=== PATIENT | male | born 1965 | race Two or more races ===

== ENCOUNTER 2024-05-08 12:42 | Inpatient (IN) | payer BC ==
[~2024-05-08] VITALS: Ht 14.7 cm; Wt 92.1 kg
[2024-05-08] MEDS ORDERED: GLIP5TAB23 PO (13:04)
[2024-05-08] MEDS ORDERED: potassium Cl 20 mEq SR tablet PO PRN ×2 (13:40)
[2024-05-08] MEDS: PERFLUTREN PROTEIN-A MICROSPHR (Optison) 0.22 MG/ML 3ML VIAL IV ONE (13:40)
[2024-05-08] MEDS ORDERED: potassium Cl 40MEQ/1/2NS 520ml 520 ML IV PRN (13:40)
[2024-05-08] MEDS ORDERED: glucagon, human recombinant 1mg kit SUBCUT PRN (13:40)
[2024-05-08] MEDS ORDERED: dextrose 50%-water 50ml dispensing syringe IV PRN ×2 (13:40)
[2024-05-08] MEDS ORDERED: magnesium sulf-water 2g/50mL 50 ML IV PRN (13:40)
[2024-05-08] MEDS ORDERED: DEXTROSE 15 GM of carb/4 tabs (each vial/BOTTLE has 4 tablets) PO PRN ×2 (13:40)
[2024-05-08] MEDS ORDERED: magnesium sulf-water 4G/100mL 100 ML IV PRN (13:40)
[2024-05-08] MEDS ORDERED: mag hydrox/Alum hydrox/simeth 30ml oral suspension PO PRN (13:40)
[2024-05-08] MEDS ORDERED: magnesium hydroxide 30ml (MOM) UD suspension PO PRN (13:40)
[2024-05-08] MEDS ORDERED: HYDROcodone/acetaminophen 5mg/325mg tablet PO PRN (13:40)
[2024-05-08] MEDS ORDERED: HYDROcodone/acetaminophen 10/325mg tab PO PRN (13:40)
[2024-05-08] MEDS ORDERED: ondansetron/PF 4mg/2ml inj IV PRN (13:40)
[2024-05-08] MEDS ORDERED: acetaminophen 325mg tablet PO PRN ×2 (13:40)
[2024-05-08] MEDS ORDERED: morphine 2 MG/ML inj. syringe IV PRN ×2 (13:40)
[2024-05-08 14:03] LABS: BASOPHILS % (AUTO) 0.5 % (0-1); EOSINOPHILS # (AUTO) 0.4 X10'3 (0-0.9); EOSINOPHILS % (AUTO) 4.3 % (0-6); HEMATOCRIT 43.5 % (42.0-52.0); HEMOGLOBIN 14.7 g/dl (14.0-17.9); LYMPHOCYTES # (AUTO) 2.8 X10'3 (1.1-4.8); LYMPHOCYTES % (AUTO) 28.2 % (21-51); MEAN CORPUSCULAR HEMOGLOBIN 30.6 PG (27.0-31.0); MEAN CORPUSCULAR HGB CONC 33.8 g/dL (33.0-36.5); MEAN CORPUSCULAR VOLUME 90.5 FL (78-98); MEAN PLATELET VOLUME 8.9 FL (7.4-10.4); MONOCYTES # (AUTO) 0.7 X10'3 (0-0.9); MONOCYTES % (AUTO) 6.7 % (2-12); NEUTROPHILS # (AUTO) 6.1 X10'3 (1.8-7.7); NEUTROPHILS % (AUTO) 60.3 % (42-75); PLATELET COUNT 240 X10'3 (140-440); RED CELL DISTRIBUTION WIDTH 15.7 % (11.5-14.5); WHITE BLOOD COUNT 10.1 X10'3 (4.5-11.0)
[2024-05-08] MEDS: heparin 25,000 UNIT/250ml bag 250 ML IV PRN (14:12)
[2024-05-08] MEDS: heparin 10,000 units/1 ML INJ IV ONE (14:13)
[2024-05-08] MEDS: HEPARIN DRIP-CARDIAC**PHARMACIST-TO-DOSE IV ONE (14:15)
[2024-05-08 14:24] LABS: PROTHROMBIN TIME 10.5 SECONDS (9.0-12.0)
[2024-05-08] MEDS ORDERED: metoprolol tartrate 1mg/ml inj IV PRN (14:25)
[2024-05-08] MEDS ORDERED: regadenoson 0.4mg/5ml syringe IV PRN (14:25)
[2024-05-08] MEDS ORDERED: nitroGLYCERIN 0.4mg SUBLingual tab SL PRN (14:25)
[2024-05-08] MEDS ORDERED: aminophylline 250mg/10ml inj. IV PRN (14:25)
[2024-05-08] MEDS: MESSAGE TO NURSING IV ONE ×2 (15:06→20:59)
[2024-05-08] MEDS: metoprolol tartrate 50mg tablet PO ONE (15:15)
[2024-05-08] MEDS: atorvastatin 20mg tablet PO SCH (15:16)
[2024-05-08] MEDS ORDERED: NITR0.4T51 SL (18:09)
[2024-05-08] MEDS: docusate sod 100mg capsule PO SCH (19:32)
[2024-05-08] MEDS: K and/or MAG REPLACEMENT MC SCH (19:32)
[2024-05-08] MEDS: INSULIN LISPRO 100 UNIT/ML INSULN.PEN MULTI-DOSE SQ SCH (19:38)
[2024-05-08] MEDS: heparin 10,000 units/1 ML INJ IV PRN (20:54)
[2024-05-08 21:49] VITALS: BP 142/78; PULSE 69; RESP 12; TEMP 98.1; O2SAT 98
[2024-05-08] MEDS ORDERED: PRED5TAB PO (22:55)
[2024-05-08 23:29] VITALS: BP 141/79; PULSE 69; RESP 15; TEMP 98.1; O2SAT 97
[2024-05-08 23:36] VITALS: RESP 13; O2SAT 98
[2024-05-09] VITALS (8 sets, daily range): BP systolic 127–141; BP diastolic 61–81; PULSE 68–89; RESP 12–16; TEMP 97.1–98.4; O2SAT 96–98
[2024-05-09] MEDS: nicotine 21mg patch - 24 hr TD ONE
[2024-05-09 02:56] LABS: BASOPHILS % (AUTO) 0.5 % (0-1); EOSINOPHILS # (AUTO) 0.4 X10'3 (0-0.9); EOSINOPHILS % (AUTO) 4.2 % (0-6); HEMATOCRIT 40.7 % (42.0-52.0); LYMPHOCYTES # (AUTO) 3.5 X10'3 (1.1-4.8); LYMPHOCYTES % (AUTO) 41.7 % (21-51); MEAN CORPUSCULAR HEMOGLOBIN 31.1 PG (27.0-31.0); MEAN CORPUSCULAR HGB CONC 34.5 g/dL (33.0-36.5); MEAN CORPUSCULAR VOLUME 90.3 FL (78-98); MEAN PLATELET VOLUME 8.6 FL (7.4-10.4); MONOCYTES # (AUTO) 0.5 X10'3 (0-0.9); MONOCYTES % (AUTO) 6.5 % (2-12); NEUTROPHILS % (AUTO) 47.1 % (42-75); PLATELET COUNT 215 X10'3 (140-440); RED CELL DISTRIBUTION WIDTH 15.5 % (11.5-14.5); WHITE BLOOD COUNT 8.4 X10'3 (4.5-11.0)
[2024-05-09 03:17] LABS: ALANINE AMINOTRANSFERASE 14 U/L (12-78); ALBUMIN/GLOBULIN RATIO 0.8 (1.1-1.5); ALKALINE PHOSPHATASE 70 IU/L (46-116); ANION GAP 4 (8-16); ASPARTATE AMINO TRANSFERASE 9 U/L (10-37); BILIRUBIN,TOTAL 0.4 MG/DL (0.1-1.0); BLOOD UREA NITROGEN 18 MG/DL (7-18); BUN/CREATININE RATIO 19.4 (10.0-20.0); CALCIUM 8.5 MG/DL (8.5-10.1); CHLORIDE 104 MMOL/L (99-107); CHOL/HDL RATIO 3.8 (0.00-4.99); CHOLESTEROL 117 MG/DL (0-200); CREATININE 0.93 MG/DL (0.60-1.10); GLUCOSE 178 MG/DL (70-104); HDL CHOLESTEROL 31 MG/DL (35-60); LDL CHOLESTEROL 76 MG/DL (50-100); MAGNESIUM 1.8 MG/DL (1.5-2.4); POTASSIUM 4.2 MMOL/L (3.5-5.1); SODIUM 139 MMOL/L (135-145); TOTAL CARBON DIOXIDE 31.3 MMOL/L (24-32); TRIGLYCERIDES 84 MG/DL (20-135); eGFR 84 ML/MIN
[2024-05-09] MEDS: MESSAGE TO NURSING IV ONE ×4 (03:39→21:55)
[2024-05-09] MEDS: nicotine 21mg patch - 24 hr TD SCH (08:00)
[2024-05-10] VITALS (11 sets, daily range): BP systolic 110–146; BP diastolic 59–96; PULSE 65–82; RESP 14–16; TEMP 97.8–98; O2SAT 96–100
[2024-05-10] MEDS: nicotine 21mg patch - 24 hr TD SCH (01:37)
[2024-05-10 03:30] LABS: BASOPHILS # (AUTO) 0.1 X10'3 (0-0.2); BASOPHILS % (AUTO) 0.8 % (0-1); EOSINOPHILS # (AUTO) 0.4 X10'3 (0-0.9); EOSINOPHILS % (AUTO) 4.3 % (0-6); HEMATOCRIT 42.1 % (42.0-52.0); HEMOGLOBIN 14.1 g/dl (14.0-17.9); LYMPHOCYTES # (AUTO) 3.4 X10'3 (1.1-4.8); MEAN CORPUSCULAR HEMOGLOBIN 30.3 PG (27.0-31.0); MEAN CORPUSCULAR HGB CONC 33.5 g/dL (33.0-36.5); MEAN CORPUSCULAR VOLUME 90.6 FL (78-98); MEAN PLATELET VOLUME 8.6 FL (7.4-10.4); MONOCYTES # (AUTO) 0.6 X10'3 (0-0.9); MONOCYTES % (AUTO) 7.1 % (2-12); NEUTROPHILS # (AUTO) 4.3 X10'3 (1.8-7.7); NEUTROPHILS % (AUTO) 48.8 % (42-75); PLATELET COUNT 206 X10'3 (140-440); RED BLOOD COUNT 4.64 X10'6 (4.70-6.10); RED CELL DISTRIBUTION WIDTH 15.4 % (11.5-14.5); WHITE BLOOD COUNT 8.7 X10'3 (4.5-11.0)
[2024-05-10 03:41] LABS: ALANINE AMINOTRANSFERASE 11 U/L (12-78); ALBUMIN 3.1 G/DL (3.4-5.0); ALBUMIN/GLOBULIN RATIO 0.8 (1.1-1.5); ALKALINE PHOSPHATASE 76 IU/L (46-116); ANION GAP 4 (8-16); ASPARTATE AMINO TRANSFERASE 8 U/L (10-37); BILIRUBIN,TOTAL 0.3 MG/DL (0.1-1.0); BLOOD UREA NITROGEN 20 MG/DL (7-18); BUN/CREATININE RATIO 17.7 (10.0-20.0); CALCIUM 8.8 MG/DL (8.5-10.1); CHLORIDE 104 MMOL/L (99-107); CREATININE 1.13 MG/DL (0.60-1.10); GLUCOSE 187 MG/DL (70-104); MAGNESIUM 1.9 MG/DL (1.5-2.4); POTASSIUM 3.9 MMOL/L (3.5-5.1); SODIUM 139 MMOL/L (135-145); TOTAL CARBON DIOXIDE 31.3 MMOL/L (24-32); eGFR 67 ML/MIN
[2024-05-10] MEDS: MESSAGE TO NURSING IV ONE ×2 (04:00→10:57)
[2024-05-10] MEDS: regadenoson 0.4mg/5ml syringe IV ONE (09:36)
[2024-05-10] MEDS ORDERED: ASPI-1265 PO (14:15)
[2024-05-10] MEDS ORDERED: NICO-687 TD (14:15)
[2024-05-10] MEDS ORDERED: ATOR20TA66 PO (14:15)
== END 2024-05-10 15:15 | disposition home or self-care (01) | DRG 282 ==
LOC: ER 12:43 → ED HOLD 13:49 → PCU 3S 21:30
PROVIDERS: ADMIT Family Medicine; ATTEND Family Medicine
PROC: 4A02XM4 Measurement of Cardiac Total Activity, External Approach (ICD-10-PCS; principal; 2024-05-10)
PROC: 3E033HZ Introduction of Radioactive Substance into Peripheral Vein, Percutaneous Approach (ICD-10-PCS; 2024-05-10)
DX: R07.89 Other chest pain (principal); I21.A1 Myocardial infarction type 2; M06.9 Rheumatoid arthritis, unspecified; F17.210 Nicotine dependence, cigarettes, uncomplicated; I35.1 Nonrheumatic aortic (valve) insufficiency; E11.9 Type 2 diabetes mellitus without complications; Z86.73 Personal history of transient ischemic attack (TIA), and cerebral infarction without residual deficits; Z82.49 Family history of ischemic heart disease and other diseases of the circulatory system
CPT/HCPCS: 36415; 78452; 80053; 80061; 82948; 83036; 83735; 84484; 85025; 85610; 85730; 87081; 93005; 93017; 93306; 97116; 97161; 97530; 99285; A9500; G0378; J1644; J1815; J2785

== ENCOUNTER 2024-05-29 10:15 | Inpatient (IN) | payer BC ==
[~2024-05-29] VITALS: Ht 167.6 cm; Wt 93.4 kg
[2024-05-29] VITALS (15 sets, daily range): BP systolic 101–144; BP diastolic 65–86; PULSE 69–81; RESP 8–16; TEMP 97–97.7; O2SAT 96–99
[~2024-05-29 10:15] MED LIST: ASPI-1265 PO; ATOR20TA66 PO; GLIP5TAB23 PO; NICO-687 TD; NITR0.4T51 SL; PRED5TAB PO
[2024-05-29] MEDS: aspirin 81mg tab.chew PO ONE (10:32)
[2024-05-29 10:46] LABS: BASOPHILS % (AUTO) 0.3 % (0-1); EOSINOPHILS # (AUTO) 0.4 X10'3 (0-0.9); EOSINOPHILS % (AUTO) 3.6 % (0-6); HEMATOCRIT 43.8 % (42.0-52.0); HEMOGLOBIN 14.7 g/dl (14.0-17.9); LYMPHOCYTES # (AUTO) 3.3 X10'3 (1.1-4.8); LYMPHOCYTES % (AUTO) 29.1 % (21-51); MEAN CORPUSCULAR HEMOGLOBIN 30.7 PG (27.0-31.0); MEAN CORPUSCULAR HGB CONC 33.5 g/dL (33.0-36.5); MEAN CORPUSCULAR VOLUME 91.5 FL (78-98); MEAN PLATELET VOLUME 9.1 FL (7.4-10.4); MONOCYTES # (AUTO) 0.7 X10'3 (0-0.9); MONOCYTES % (AUTO) 5.7 % (2-12); NEUTROPHILS % (AUTO) 61.3 % (42-75); PLATELET COUNT 210 X10'3 (140-440); RED BLOOD COUNT 4.79 X10'6 (4.70-6.10); RED CELL DISTRIBUTION WIDTH 15.9 % (11.5-14.5); WHITE BLOOD COUNT 11.5 X10'3 (4.5-11.0)
[2024-05-29] MEDS ORDERED: nitroGLYCERIN 0.4mg SUBLingual tab SL PRN (12:15)
[2024-05-29] MEDS ORDERED: heparin 10,000 units/1 ML INJ IV PRN (12:35)
[2024-05-29] MEDS ORDERED: iohexol 350MG/ML 100ml bottle IV ONE ×2 (12:41→13:57)
[2024-05-29] MEDS ORDERED: fentaNYL/PF 50MCG/1 ML 2ML syringe ONE (12:41)
[2024-05-29] MEDS ORDERED: iohexol 350 MG/ML 50ML vial IV ONE (12:41)
[2024-05-29] MEDS ORDERED: midazolam 1 mg/ML 2ml injection ONE ×2 (12:41→13:46)
[2024-05-29] MEDS ORDERED: heparin 1,000unit/ml 10ml vial 10 ML ONE (12:41)
[2024-05-29] MEDS ORDERED: LIDOcaine 1% 30ml preserv. free vial ONE (12:42)
[2024-05-29] MEDS ORDERED: nitroGLYCERIN 500mcg/5mL D5W 5 ML IV ONE ×2 (12:42→13:38)
[2024-05-29] MEDS: heparin 25,000 UNIT/250ml bag 250 ML IV PRN (12:45)
[2024-05-29] MEDS: heparin 10,000 units/1 ML INJ IV ONE (12:47)
[2024-05-29 13:19] LABS: ALANINE AMINOTRANSFERASE 19 U/L (12-78); ALBUMIN 3.3 G/DL (3.4-5.0); ALBUMIN/GLOBULIN RATIO 0.8 (1.1-1.5); ALKALINE PHOSPHATASE 84 IU/L (46-116); ASPARTATE AMINO TRANSFERASE 7 U/L (10-37); BILIRUBIN,TOTAL 0.4 MG/DL (0.1-1.0); CALCIUM 9.3 MG/DL (8.5-10.1); TOTAL CARBON DIOXIDE 28.4 MMOL/L (24-32); TOTAL PROTEIN 7.4 G/DL (6.4-8.2)
[2024-05-29 13:27] LABS: ANION GAP 11 (8-16); BLOOD UREA NITROGEN 23 MG/DL (7-18); BUN/CREATININE RATIO 18.9 (10.0-20.0); CHLORIDE 100 MMOL/L (99-107); CREATININE 1.22 MG/DL (0.60-1.10); GLUCOSE 334 MG/DL (70-104); POTASSIUM 4.4 MMOL/L (3.5-5.1); PRO BRAIN NATRIURETIC PEPTIDE 848 PG/ML (0-125); SODIUM 139 MMOL/L (135-145); eCRCL 61 ML/MIN; eGFR 61 ML/MIN
[2024-05-29] MEDS ORDERED: heparin 1,000 UNITS/NS 500ml 500 ML ONE (13:58)
[2024-05-29] MEDS ORDERED: clopidogrel 300mg tablet ONE (14:29)
[2024-05-29] MEDS ORDERED: aspirin 325mg tablet ONE (14:29)
[2024-05-29] MEDS ORDERED: heparin 10,000 units/1 ML INJ IV ONE (15:35)
[2024-05-29] MEDS ORDERED: acetaminophen 325mg tablet PO PRN (15:40)
[2024-05-29] MEDS ORDERED: ondansetron/PF 4mg/2ml inj IV PRN (15:40)
[2024-05-29] MEDS ORDERED: mag hydrox/Alum hydrox/simeth 30ml oral suspension PO PRN (15:40)
[2024-05-29] MEDS ORDERED: magnesium sulf-water 2g/50mL 50 ML IV PRN (15:40)
[2024-05-29] MEDS ORDERED: potassium Cl 40MEQ/1/2NS 520ml 520 ML IV PRN (15:40)
[2024-05-29] MEDS ORDERED: magnesium hydroxide 30ml (MOM) UD suspension PO PRN (15:40)
[2024-05-29] MEDS ORDERED: magnesium Cl slow-release 64mg tablet PO PRN (15:40)
[2024-05-29] MEDS ORDERED: potassium Cl 20 mEq SR tablet PO PRN ×2 (15:40)
[2024-05-29] MEDS ORDERED: magnesium sulf-water 4G/100mL 100 ML IV PRN (15:40)
[2024-05-29] MEDS ORDERED: glucagon, human recombinant 1mg kit SUBCUT PRN (15:45)
[2024-05-29] MEDS ORDERED: dextrose 50%-water 50ml dispensing syringe IV PRN ×2 (15:45)
[2024-05-29] MEDS ORDERED: DEXTROSE 15 GM of carb/4 tabs (each vial/BOTTLE has 4 tablets) PO PRN ×2 (15:45)
[2024-05-29] MEDS ORDERED: HYDROcodone/acetaminophen 10/325mg tab PO PRN (16:35)
[2024-05-29] MEDS ORDERED: OXAZEpam 15mg capsule PO PRN (16:35)
[2024-05-29] MEDS ORDERED: cyclobenzaprine 10mg tablet PO PRN (16:35)
[2024-05-29] MEDS: normal saline 1000ml 1,000 ML IV ONE (18:00)
[2024-05-29 18:45] LABS: CHOL/HDL RATIO 3.4 (0.00-4.99); CHOLESTEROL 133 MG/DL (0-200); HDL CHOLESTEROL 39 MG/DL (35-60); TRIGLYCERIDES 96 MG/DL (20-135)
[2024-05-29 18:48] LABS: LDL CHOLESTEROL 85 MG/DL (50-100)
[2024-05-29] MEDS: docusate sod 100mg capsule PO SCH (20:00)
[2024-05-29] MEDS: K and/or MAG REPLACEMENT MC SCH (20:00)
[2024-05-29] MEDS: heparin, porcine 5000 units/ml vial SQ SCH (20:45)
[2024-05-29] MEDS: INSULIN LISPRO 100 UNIT/ML INSULN.PEN MULTI-DOSE SQ SCH (20:47)
[2024-05-29] MEDS: morphine 4 MG/ML inj SYRINge IV ONE (20:48)
[2024-05-29] MEDS: ondansetron/PF 4mg/2ml inj IV ONE (20:48)
[2024-05-29] MEDS: MESSAGE TO NURSING IV ONE (20:48)
[2024-05-29] MEDS: HYDROcodone/acetaminophen 10/325mg tab PO PRN (23:03)
[2024-05-29] MEDS: nicotine 14mg patch - 24hr TD ONE (23:06)
[2024-05-30 02:00] VITALS: BP 150/80; PULSE 78; RESP 11; TEMP 97.9; O2SAT 98
[2024-05-30 06:00] VITALS: BP 135/67; PULSE 70; RESP 14; TEMP 97.7; O2SAT 98
[2024-05-30 07:23] LABS: BASOPHILS # (AUTO) 0.1 X10'3 (0-0.2); BASOPHILS % (AUTO) 0.6 % (0-1); EOSINOPHILS # (AUTO) 0.3 X10'3 (0-0.9); EOSINOPHILS % (AUTO) 3.2 % (0-6); HEMOGLOBIN 13.1 g/dl (14.0-17.9); LYMPHOCYTES # (AUTO) 3.7 X10'3 (1.1-4.8); LYMPHOCYTES % (AUTO) 41.9 % (21-51); MEAN CORPUSCULAR HEMOGLOBIN 30.4 PG (27.0-31.0); MEAN CORPUSCULAR HGB CONC 33.5 g/dL (33.0-36.5); MEAN CORPUSCULAR VOLUME 90.5 FL (78-98); MEAN PLATELET VOLUME 9.1 FL (7.4-10.4); MONOCYTES # (AUTO) 0.6 X10'3 (0-0.9); MONOCYTES % (AUTO) 6.2 % (2-12); NEUTROPHILS # (AUTO) 4.3 X10'3 (1.8-7.7); NEUTROPHILS % (AUTO) 48.1 % (42-75); PLATELET COUNT 178 X10'3 (140-440); RED BLOOD COUNT 4.31 X10'6 (4.70-6.10); RED CELL DISTRIBUTION WIDTH 15.9 % (11.5-14.5); WHITE BLOOD COUNT 8.9 X10'3 (4.5-11.0)
[2024-05-30 07:39] LABS: ALANINE AMINOTRANSFERASE 15 U/L (12-78); ALBUMIN 2.6 G/DL (3.4-5.0); ALBUMIN/GLOBULIN RATIO 0.8 (1.1-1.5); ALKALINE PHOSPHATASE 67 IU/L (46-116); ANION GAP 7 (8-16); ASPARTATE AMINO TRANSFERASE 16 U/L (10-37); BILIRUBIN,TOTAL 0.4 MG/DL (0.1-1.0); BLOOD UREA NITROGEN 16 MG/DL (7-18); BUN/CREATININE RATIO 19.8 (10.0-20.0); CALCIUM 8.4 MG/DL (8.5-10.1); CHLORIDE 104 MMOL/L (99-107); CREATININE 0.81 MG/DL (0.60-1.10); GLUCOSE 196 MG/DL (70-104); MAGNESIUM 2.7 MG/DL (1.5-2.4); POTASSIUM 4.1 MMOL/L (3.5-5.1); SODIUM 139 MMOL/L (135-145); TOTAL CARBON DIOXIDE 27.6 MMOL/L (24-32); eCRCL 92 ML/MIN; eGFR > 90 ML/MIN
[2024-05-30] MEDS: aspirin 81mg, enteric-coated 1 TAB TABLET.DR PO SCH (07:57)
[2024-05-30] MEDS: lisinopril 5mg tablet PO SCH (07:57)
[2024-05-30] MEDS: metoprolol succinate 25mg (24-HOUR) SR. Tablet PO SCH (07:57)
[2024-05-30] MEDS: clopidogrel 75mg tablet PO SCH (07:57)
[2024-05-30 08:00] VITALS: RESP 14; O2SAT 98
[2024-05-30] MEDS ORDERED: heparin, porcine-25,000 units/D5-250ml premix IV ONE (08:00)
[2024-05-30] MEDS: nicotine 14mg patch - 24hr TD SCH (08:00)
[2024-05-30 11:00] VITALS: BP 132/85; PULSE 72; RESP 16; TEMP 97.6; O2SAT 98
[2024-05-30 15:00] VITALS: BP 142/88; PULSE 82; RESP 11; TEMP 98; O2SAT 98
[2024-05-30] MEDS ORDERED: ATOR20TA66 PO (16:03)
[2024-05-30] MEDS ORDERED: METO-395 PO (16:03)
[2024-05-30] MEDS ORDERED: CLOP-32 PO (16:03)
[2024-05-30] MEDS ORDERED: LISI5TAB22 PO (16:03)
== END 2024-05-30 18:05 | disposition home or self-care (01) | DRG 322 ==
LOC: ER 10:16 → PCU 3S 15:42
PROVIDERS: ADMIT Internal Medicine; ATTEND Internal Medicine
PROC: 027135Z Dilation of Coronary Artery, Two Arteries with Two Drug-eluting Intraluminal Devices, Percutaneous Approach (ICD-10-PCS; principal; 2024-05-29)
PROC: 4A023N7 Measurement of Cardiac Sampling and Pressure, Left Heart, Percutaneous Approach (ICD-10-PCS; 2024-05-29)
PROC: B2111ZZ Fluoroscopy of Multiple Coronary Arteries using Low Osmolar Contrast (ICD-10-PCS; 2024-05-29)
PROC: B2151ZZ Fluoroscopy of Left Heart using Low Osmolar Contrast (ICD-10-PCS; 2024-05-29)
DX: I21.19 ST elevation (STEMI) myocardial infarction involving other coronary artery of inferior wall (principal); I25.10 Atherosclerotic heart disease of native coronary artery without angina pectoris; E11.9 Type 2 diabetes mellitus without complications; E78.5 Hyperlipidemia, unspecified; F17.200 Nicotine dependence, unspecified, uncomplicated; I10 Essential (primary) hypertension; E66.9 Obesity, unspecified; G47.33 Obstructive sleep apnea (adult) (pediatric); I25.2 Old myocardial infarction; Z68.33 Body mass index [BMI] 33.0-33.9, adult; Z71.6 Tobacco abuse counseling; Z79.02 Long term (current) use of antithrombotics/antiplatelets; Z79.82 Long term (current) use of aspirin; Z79.84 Long term (current) use of oral hypoglycemic drugs; Z82.49 Family history of ischemic heart disease and other diseases of the circulatory system; Z86.73 Personal history of transient ischemic attack (TIA), and cerebral infarction without residual deficits
CPT/HCPCS: 93458; C9600; C9606; 36415; 71045; 76937; 80053; 80061; 82948; 83735; 83880; 84484; 85025; 85347; 85730; 87081; 93005; 99152; 99153; A6258; A6449; C1725; C1751; C1769; C1874; G0378; J1644; J1815; J2003; J2250; J3010; J7030; J7040; Q9967

== ENCOUNTER 2024-11-03 00:42 | Inpatient (IN) | payer BC ==
[~2024-11-03] VITALS: Ht 172.7 cm; Wt 90.9 kg
[2024-11-03] VITALS (9 sets, daily range): BP systolic 117–157; BP diastolic 70–90; PULSE 77–90; RESP 12–20; TEMP 97.6–98.7; O2SAT 91–99
[~2024-11-03 00:42] MED LIST changes: +CLOP-32 PO; +LISI5TAB22 PO; +METO-395 PO; -PRED5TAB PO
--- NOTE | 2024-11-03 01:18 | Physician Documentation ---
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 Patient was transferred here from [facility] with a diagnosis of acute gallstone cholecystitis. Patient received morphine for pain and Zosyn at 8:00 p.m. at [facility]. Patient has been having abdominal pain for four days in the epigastric and right upper quadrant. He had a couple episodes of vomiting over the weekend. No vomiting today. No chest pain or shortness for breath today. Patient denies any fever. Patient describes the pain as sharp. But after he received the morphine the pain has resolved. Patient was transferred here from [facility] for a higher level of care because they did not have Cardiology for medical clearance. Patient had a recent admission here and had two stents placed by Dr. Rojas. Patient also has a moderate-size pericardial effusion. Review of systems: All systems were reviewed and are negative except for what is indicated in the history of present illness. Past Medical History: Coronary artery disease, hypertension, pericardial effusion Past Surgical History: PTCA-2 stents Social History: Smokes two packs per day, denies alcohol use or drug use Medications: Reviewed as documented Nursing Notes Allergies: Reviewed as documented in Nursing Notes Medication Reconciliation Allergies: Coded Allergies: No Known Allergies (Unverified , 05/08/24) Scheduled Aspirin (Aspirin), 1 TAB PO DAILY Atorvastatin Calcium (Atorvastatin Calcium), 40 MG PO DAILY Clopidogrel Bisulfate (Plavix), 75 MG PO DAILY Glipizide (Glipizide), 1 TAB PO DAILY, (Reported) Lisinopril (Lisinopril), 5 MG PO Q24H Metoprolol Succinate (Metoprolol Succinate), 25 MG PO DAILY Nicotine 21 MG Patch* (Habitrol 21 MG Patch*), 1 PATCH TD HS Scheduled PRN Nitroglycerin SL* (Nitrostat SL*), 0.4 MG SL Q5MIN PRN for chest pain Past Medical History Patient History: FH: myocardial infarction FATHER Brother Review of Systems All Other Systems at this time: Reviewed and Negative ROS Patient denies any other acute symptoms other than above. All other systems are negative Physical Exam Vital Signs: RN Vital Signs have been reviewed: Yes, Temperature: 97.8, Source: Oral, Heart Rate: 81, Respiratory Rate: 13, BP: 151/107, Pulse Oximetry: 96, Weight: 90.910 Pulse Oximetry Reflects: adequate oxygenation Physical Exam General Appearance: No distress HEENT: Normal OP, moist oral mucosa, PERRL, EOMI Neck: supple, normal ROM, trachea midline Pulmonary: No respiratory distress, CTA, BS equal Cardiac: RRR, no murmur, rub or gallop, GI: nondistended, soft, RIGHT UPPER QUADRANT TENDERNESS, normal bowel sounds, no guarding, no rebound Extremities: normal ROM, no swelling, non-tender Skin: intact, dry, warm, no rashes Neuro: AAOx3, speech is clear, no focal motor weakness Psych: normal affect, good eye contact, no apparent hallucination, normal speech Progress Results/Orders Results/Orders Orders - LUAN HARVEY MD Urinalysis, Cult If Indicated (11/03/24 01:19) Morphine 4mg/Ml Inj. (Morphine Inj.) (11/03/24 01:20) Ultrasound Of Abdomen (11/03/24 01:19) Chest,Single View (11/03/24 01:51) Monitor (11/03/24 01:19) Saline Lock (11/03/24 01:19) Nothing By Mouth (11/03/24 Dinner) Hs Troponin I W Calculations (11/03/24 03:19) Hs Troponin I W Calculations (11/03/24 04:19) Completed Orders - LUAN HARVEY MD Nicotine 21mg Patch -24hr (Habitrol Patc (11/03/24 01:20) Cbc/Diff (11/03/24 01:19) Lipase (11/03/24 01:19) Ondansetron Inj. (Zofran 4mg/2ml Vial) (11/03/24 01:20) Ultrasound Of Abdomen (11/03/24 01:19) Chest,Single View (11/03/24 01:51) Hs Troponin I W Calculations (11/03/24 01:19) Electrocardiogram (11/03/24 01:22) PTT (11/03/24 01:25) Pt Inr (11/03/24 01:25) Type And Screen (11/03/24 01:25) CMP (11/03/24 01:25) Hgb A1c (11/03/24 01:25) Medications Received in ER Medications (Trade) Dose Ordered Sig/Keven Route PRN Reason Start Time Stop Time Status Last Admin Dose Admin (Habitrol patch) 1 patch ONCE ONCE TD 11/03/24 01:20 11/03/24 01:21 DC 11/03/24 02:10 1 PATCH (Zofran 4mg/2ml vial) 4 mg ONCE ONCE IV 11/03/24 01:20 11/03/24 01:21 DC 11/03/24 02:10 4 MG Sodium Chloride 1,000 ml @ 50 mls/hr Q20H IV 11/03/24 01:40 11/03/24 03:27 DC 11/03/24 02:09 50 MLS/HR Vital Signs 11/03/24 11/03/24 11/03/24 00:51 01:06 01:10 Temp 97.8 97.8 Pulse 78 81 Resp 19 13 13 B/P (MAP) 151/107 151/107 (122) Pulse Ox 97 96 Laboratory Tests Test 11/03/24 01:25 White Blood Count 10.7 Red Blood Count 4.74 Hemoglobin 14.7 Hematocrit 42.8 Mean Corpuscular Volume 90.2 Mean Corpuscular Hemoglobin 31.0 Mean Corpuscular Hemoglobin Concent 34.3 Red Cell Distribution Width 15.9 H Platelet Count 179 Mean Platelet Volume 8.6 Neutrophils (%) (Auto) 68.1 Lymphocytes (%) (Auto) 23.7 Monocytes (%) (Auto) 5.8 Eosinophils (%) (Auto) 2.1 Basophils (%) (Auto) 0.3 Neutrophils # (Auto) 7.2 Lymphocytes # (Auto) 2.5 Monocytes # (Auto) 0.6 Eosinophils # (Auto) 0.2 Basophils # (Auto) 0.0 CBC Comment Prothrombin Time 11.1 INR International Normalized Ratio 1.1 Activated Partial Thromboplast Time 26 Coagulation Comments Sodium Level 143 Potassium Level 4.2 Chloride Level 105 Carbon Dioxide Level 30.9 Anion Gap 7 L Blood Urea Nitrogen 21 H Creatinine 1.53 H Estimated GFR/1.73 m2 47 BUN/Creatinine Ratio 13.7 Glucose Level 114 H Hemoglobin A1c 9.0 H Calcium Level 8.6 Total Bilirubin 0.6 Aspartate Amino Transf (AST/SGOT) 18 Alanine Aminotransferase (ALT/SGPT) 33 Alkaline Phosphatase 74 Troponin I High Sensitivity 7 Total Protein 6.8 Albumin 3.5 Globulin 3.3 Albumin/Globulin Ratio 1.1 Lipase 218 H Chemistry Comments Medical Decision Making Findings Differential diagnosis includes but is not limited to: Acute cholecystitis, biliary colic, cholelithiasis, pancreatitis, choledocholithiasis, gastritis, acute coronary syndrome EKG independent interpretation: Performed at 1:34 a.m.. Normal sinus rhythm, h eart rate 80, normal axis, low voltage precordial leads, normal ST segments Chest x-ray, single view, indication: Independent interpretation: Lungs are clear, normal mediastinum, cardiac silhouette is circular consistent with pericardial effusion Abdominal ultrasound, indication: Right upper quadrant abdominal pain/cholecystitis Impression: 1. Cholelithiasis and gallbladder wall thickening. These findings may be consistent with acute cholecystitis in the appropriate clinical setting. Laboratory data independent interpretation: CBC: Normal CMP: Significant for BUN of 21 and creatinine of 1.53 Lipase: Mildly elevated at 217 Coags: Normal 1st troponin: Seven Emergency department course/medical decision-making: Patient presents with the abdominal pain and diagnosis of gallstone cholecystitis. Patient's lipase is mildly elevated. Lab work will be repeated along with the ultrasound. There does not appear to be any biliary obstruction. LFTs are normal. CBD was normal. Patient will be admitted for cholecystectomy. Patient will require an additional dose of Zosyn at 4:00 a.m.. Patient is currently pain-free. Test results and treatment plan reviewed with the patient. Consultation/communications: 1:18 a.m.: Case discussed with the hospitalist resident, Dr. Frederick. He will see the patient for admission. Departure Time of Disposition: 01:23 Disposition: 09 ADMITTED INPATIENT Admitted to Inpatient Unit: to hospitalist Admission Level of Care: Med/Surg Impression: Primary Impression: Cholecystitis with cholelithiasis Qualified Codes: K80.00 - Calculus of gallbladder with acute cholecystitis without obstruction Additional Impression: Pericardial effusion Condition: Fair Referrals: NO PRIMARY CARE PROVIDER (PCP) Education Educated: Patient Educated regarding: diagnosis, treatment Signature Scribe Signature: No scribe Attestation: No chantellibLUAN Vasquez MD Nov 03, 2024 01:17
[2024-11-03 01:36] LABS: BASOPHILS % (AUTO) 0.3 % (0-1); EOSINOPHILS # (AUTO) 0.2 X10'3 (0-0.9); EOSINOPHILS % (AUTO) 2.1 % (0-6); HEMATOCRIT 42.8 % (42.0-52.0); HEMOGLOBIN 14.7 g/dl (14.0-17.9); LYMPHOCYTES # (AUTO) 2.5 X10'3 (1.1-4.8); LYMPHOCYTES % (AUTO) 23.7 % (21-51); MEAN CORPUSCULAR HGB CONC 34.3 g/dL (33.0-36.5); MEAN CORPUSCULAR VOLUME 90.2 FL (78-98); MEAN PLATELET VOLUME 8.6 FL (7.4-10.4); MONOCYTES # (AUTO) 0.6 X10'3 (0-0.9); MONOCYTES % (AUTO) 5.8 % (2-12); NEUTROPHILS # (AUTO) 7.2 X10'3 (1.8-7.7); NEUTROPHILS % (AUTO) 68.1 % (42-75); PLATELET COUNT 179 X10'3 (140-440); RED BLOOD COUNT 4.74 X10'6 (4.70-6.10); RED CELL DISTRIBUTION WIDTH 15.9 % (11.5-14.5); WHITE BLOOD COUNT 10.7 X10'3 (4.5-11.0)
--- NOTE | 2024-11-03 01:36 | ELECTROCARDIOGRAPH REPORT ---
[facility] Test Date: 2024-11-03 Test Time: 01:34:00 Pat Name: YINKA GUZMAN Department: [facility]-ER Patient ID: [facility]-[id number] Room: [place] [address] Gender: M Patient Services Manager: : 1965 Requested By: LUAN HARVEY Order Number: [id number] Reading MD: Dr. Marcus Sol Measurements Intervals Troutman Rate: 80 P: 55 NV: 133 QRS: 56 QRSD: 93 T: 15 QT: 385 QTc: 445 Interpretive Statements Sinus rhythm Low voltage, precordial leads Consider inferior infarct Electronically Signed On 11-13-2024 18:44:[address] Marcus Sol Please click the below link to view image of tracing.
[2024-11-03] MEDS ORDERED: potassium Cl 20 mEq SR tablet PO PRN ×2 (01:40)
[2024-11-03] MEDS ORDERED: magnesium Cl slow-release 64mg tablet PO PRN (01:40)
[2024-11-03] MEDS ORDERED: magnesium sulf-water 4G/100mL 100 ML IV PRN (01:40)
[2024-11-03] MEDS ORDERED: potassium Cl 40MEQ/1/2NS 520ml 520 ML IV PRN (01:40)
[2024-11-03] MEDS ORDERED: magnesium sulf-water 2g/50mL 50 ML IV PRN (01:40)
[2024-11-03] MEDS ORDERED: ondansetron/PF 4mg/2ml inj IV PRN (01:40)
[2024-11-03] MEDS ORDERED: acetaminophen 325mg tablet PO PRN (01:40)
[2024-11-03 01:45] LABS: LIPASE 218 U/L (16-77)
[2024-11-03 01:48] LABS: APTT 26 SECONDS (22-32); INR 1.1 INR; PROTHROMBIN TIME 11.1 SECONDS (9.0-12.0)
--- NOTE | 2024-11-03 01:56 | HISTORY AND PHYSICAL-Residence ---
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 The patient reports four day of progressively worsening, sharp right upper quadrant abdominal pain associated with nausea and vomiting, worsened by oral intake. No relieving factors. He denies fever, chills, chest pain, or shortness of breath. Pain has since resolved. Evaluation at the outside facility showed gallstone consistent with the acute cholecystitis. Notably, he has not taken Plavix for five days due to vomiting. He has a known moderate pericardial effusion (stable), and history of STEMI requiring DAPT. He is diabetic on glipizide. Allergies: Coded Allergies: No Known Allergies (Unverified , 05/08/24) Home Medications Home Medications Active Plavix (Clopidogrel Bisulfate) 75 Mg Tablet 75 Mg PO DAILY Do not stop medication unless instructed by prescriber. Lisinopril 5 Mg Tablet 5 Mg PO Q24H 30 Days Metoprolol Succinate 25 Mg Tab.sr.24h 25 Mg PO DAILY 30 Days Atorvastatin Calcium 20 Mg Tablet 40 Mg PO DAILY Aspirin 81 Mg Tab.chew 1 Tab PO DAILY Habitrol 21 MG Patch* (Nicotine) 1 Each Patch.td24 1 Patch TD HS Nitrostat SL* (Nitroglycerin) 0.4 Mg Tablet 0.4 Mg SL Q5MIN PRN Reported Glipizide 5 Mg Tablet 1 Tab PO DAILY 30 Days Past Medical History Past Medical History CAD, STEMI, status post stents x2, DM type 2 Past Surgical History Surgical History Comment Stents placement Family History Family History: FH: myocardial infarction FATHER Brother Past Social History 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 Exam Vitals: Vital Signs Date Time Temp Pulse Resp B/P (MAP) Pulse Ox O2 Delivery O2 Flow Rate FiO2 11/03/24 01:10 97.8 81 13 151/107 (122) 96 General: Awake and Alert, no acute distress. HEENT: Conjunctiva pink, Sclera clear, Mucus Membranes moist. Neck: Supple without masses and tenderness. Resp: Unlabored. Lungs clear to auscultation bilaterally. Heart: Regular Rate and rhythm, normal S1 and S2 without murmur, rub or gallop. Abdomen: Mild right upper quadrant tenderness Extremities: No cyanosis,clubbing or edema. Skin: Warm and Dry. Diagnostic Data Last Recorded Lab Results: 11/03/24 0125 11/03/24 0125 Diagnostic Data: Laboratory Tests Test 11/03/24 01:25 Prothrombin Time 11.1 SECONDS (9.0-12.0) INR International Normalized Ratio 1.1 INR Activated Partial Thromboplast Time 26 SECONDS (22-32) Coagulation Comments Advance Care Planning Advanced Care plannin - 30 Minutes Additional Plan Acute gallstone cholecystitis Transferred for surgical evaluation Keep NPO IVF; NS 50 mL/hours Pain management; morphine 2 mg IV every 6 hours as needed IV antibiotics; Rocephin and Flagyl initiated Surgery consult for laparoscopic cholecystectomy EKGs and echo ordered Abdominal ultrasound ordered, please follow Elevated Lipase, Likely gallstone pancreatitis though US report from outside facility shows no CBD dilatation NPO IVF; LR 100 ml/hr MRCP Acute Kidney Injury, likely renal tubular stasis Monitor BMP LR 100 ml/hr Follow Urine lytes Recent STEMI May 2024, status post stents x2 Interrupted Plavix x5 days. Has not taken aspirin for a while Hold Plavix (already held), restart DEVYN postop Continue aspirin DM type 2 On glipizide Hyperglycemia/hypoglycemia protocol Follow hemoglobin A1c, and lipid panel Tobacco use disorder Active smoker/40 pack years Nicotine patch Counseling provided Code status: Full code DVT prophylaxis: Jonnie Frederick Internal Medicine Resident Date of Service: Nov 03, 2024 Billing Provider: JORGE HARRINGTON MD Common Visit Codes: 99952-TRZBBSC INP/OBS CARE (HIGH) Assessment/Plan Assessment Evaluated the patient with the help of residents. Discussed the case with them. Reviewed notes by Dr.Najibi RAYGOZA Agree with his assessments and plans. I also reviewed the patient's records. This included labs, radiology, notes from other providers. Additional points as below will suggest GI evaluation along with general surgery. May be a candidate for MRCP and possible ERCP? Otherwise continue the current management CARTER FREDERICK RES Nov 03, 2024 01:56 JORGE HARRINGTON MD Nov 03, 2024 04:34
[2024-11-03 01:59] LABS: ALANINE AMINOTRANSFERASE 33 U/L (12-78); ALBUMIN 3.5 G/DL (3.4-5.0); ALBUMIN/GLOBULIN RATIO 1.1 (1.1-1.5); ALKALINE PHOSPHATASE 74 IU/L (46-116); ANION GAP 7 (8-16); ASPARTATE AMINO TRANSFERASE 18 U/L (10-37); BILIRUBIN,TOTAL 0.6 MG/DL (0.1-1.0); BLOOD UREA NITROGEN 21 MG/DL (7-18); BUN/CREATININE RATIO 13.7 (10.0-20.0); CALCIUM 8.6 MG/DL (8.5-10.1); CHLORIDE 105 MMOL/L (99-107); CREATININE 1.53 MG/DL (0.60-1.10); GLUCOSE 114 MG/DL (70-104); POTASSIUM 4.2 MMOL/L (3.5-5.1); SODIUM 143 MMOL/L (135-145); TOTAL CARBON DIOXIDE 30.9 MMOL/L (24-32); TOTAL PROTEIN 6.8 G/DL (6.4-8.2); eCRCL 52 ML/MIN; eGFR 47 ML/MIN
[2024-11-03] MEDS: PERFLUTREN PROTEIN-A MICROSPHR (Optison) 0.22 MG/ML 3ML VIAL IV ONE (02:02)
--- NOTE | 2024-11-03 02:03 | RADIOLOGY REPORT ---
CHEST RADIOGRAPH Indication: PREOP Technique: Single frontal view of the chest was obtained COMPARISON: DI CHEST,SINGLE VIEW on DOS: 05/29/24, XR CHEST 1 VIEW AP OR PA on DOS: 05/08/24 FINDINGS: Lines and Tubes: None Lungs: Clear Pleura: No effusion. No pneumothorax. Cardiomediastinal contours: Cardiomegaly. Bones: Unremarkable IMPRESSION: 1. Cardiomegaly.
[2024-11-03] MEDS ORDERED: DEXTROSE 15 GM of carb/4 tabs (each vial/BOTTLE has 4 tablets) PO PRN ×2 (02:05)
[2024-11-03] MEDS ORDERED: glucagon, human recombinant 1mg kit SUBCUT PRN (02:05)
[2024-11-03] MEDS ORDERED: dextrose 50%-water 50ml dispensing syringe IV PRN ×2 (02:05)
[2024-11-03] MEDS: normal saline 1000ml 1,000 ML IV SCH (02:09)
[2024-11-03] MEDS: metroNIDAZOLE-Flagyl 500mg/NS 100 ML IV SCH (02:10)
[2024-11-03] MEDS ORDERED: nitroGLYCERIN 0.4mg SUBLingual tab SL PRN (02:10)
[2024-11-03] MEDS: ondansetron/PF 4mg/2ml inj IV ONE (02:10)
[2024-11-03] MEDS: nicotine 21mg patch - 24 hr TD ONE (02:10)
[2024-11-03] MEDS: CefTRIAXone/D5W-Rocephin 1gm 50 ML IV ONE (02:10)
[2024-11-03] MEDS: aspirin 81mg, enteric-coated 1 TAB TABLET.DR PO SCH (03:00)
--- NOTE | 2024-11-03 03:16 | RADIOLOGY REPORT ---
INDICATION: Abdominal Pain R/O Gallbladder TECHNIQUE: Multiple real-time sonographic images were obtained of the right upper quadrant. COMPARISON: None FINDINGS: The liver demonstrates normal homogeneous echotexture without focal mass lesions. The liver measures 16.2 cm. Normal hepatopetal portal flow identified. No evidence of pleural effusion or abd ominal ascites. There is no intrahepatic or extrahepatic ductal dilatation. The common duct measures 0.5 cm. Gallstones identified within the gallbladder. The gallbladder wall measures 0.4 cm and is slightly th ickened. Negative sonographic No's sign. The right kidney measures 13.3 cm. The right kidney is normal in contour, size, and shape. The echoge nicity is normal. There is no hydronephrosis. The pancreas is not well visualized due to overlying bowel gas. IMPRESSION: 1. Cholelithiasis and gallbladder wall thickening. These findings may be consistent with acute rafi cystitis in the appropriate clinical setting.
[2024-11-03] MEDS: ringers solution, lacted 1,000 ML IV SCH (04:22)
[2024-11-03] MEDS: morphine 4 MG/ML inj SYRINge IV PRN (05:41)
[2024-11-03 05:45] LABS: BILIRUBIN,URINE NEGATIVE (Neg); CLARITY,URINE CLEAR (Clear); COLOR,URINE YELLOW (Yellow); GLUCOSE, URINE NEGATIVE (Neg); KETONES,URINE NEGATIVE (Neg); LEUKOCYTE ESTERASE ,URINE NEGATIVE (Neg); NITRITES, URINE NEGATIVE (Neg); OCCULT BLOOD,URINE LARGE (Neg); PROTEIN,URINE NEGATIVE (Neg); UROBILINOGEN,URINE 0.2 E.U/dL (0.2-1.0)
[2024-11-03 05:54] LABS: SQUAMOUS EPITHELIAL CELL,UR FEW /LPF (FEW); UA COLLECTION TYPE CLN CATCH MIDSTREAM
[2024-11-03 05:55] LABS: BACTERIA,URINE NONE SEEN /HPF (Neg); MUCUS STRANDS FEW /LPF (Neg); RBC,URINE 20-50 /HPF (0-2); WBC,URINE 0-4 /HPF (0-4)
[2024-11-03] MEDS: INSULIN LISPRO 100 UNIT/ML INSULN.PEN MULTI-DOSE SQ SCH (07:00)
[2024-11-03] MEDS: enoxaparin 40mg/0.4ml syringe SUBCUT SCH (07:04)
[2024-11-03] MEDS: K and/or MAG REPLACEMENT MC SCH (07:04)
[2024-11-03] MEDS: metoprolol succinate 25mg (24-HOUR) SR. Tablet PO SCH (08:26)
[2024-11-03] MEDS: lisinopril 5mg tablet PO SCH (08:26)
[2024-11-03] MEDS: atorvastatin 20mg tablet PO SCH (08:27)
--- NOTE | 2024-11-03 11:09 | CONSULTATION REPORT ---
History of Present Illness Providers to CC CC: SHASHA ROJAS MD ~ Reason for Admit\Admit Dx: Cardiology consultation Refering MD: [facility] History of Present Illness This is a 59-year-old male who presented as a transfer secondary to abdominal pain. Found to have pancreatitis secondary to gallstones. He has a history of recent STEMI with PCI of the culprit lesion being the OM and the RCA in May 2024, uncontrolled type 2 diabetes, current smoker, rheumatoid arthritis on an unknown disease modifying drug via infusion therapy, hypertension. He presented to the hospitalist secondary to epigastric and right upper quadrant pain. Pain with nausea and vomiting and worsening with oral intake. He was being evaluated for possible surgical intervention and underwent an echocardiogram which demonstrates moderate to large circumferential pericardial effusion. Cardiology consultation was therefore requested with the on-call reception centre manager, Dr. Rojas. Allergies: Coded Allergies: No Known Allergies (Unverified , 05/08/24) Home Medications Home Medications Active Plavix (Clopidogrel Bisulfate) 75 Mg Tablet 75 Mg PO DAILY Do not stop medication unless instructed by prescriber. Lisinopril 5 Mg Tablet 5 Mg PO Q24H 30 Days Metoprolol Succinate 25 Mg Tab.sr.24h 25 Mg PO DAILY 30 Days Atorvastatin Calcium 20 Mg Tablet 40 Mg PO DAILY Aspirin 81 Mg Tab.chew 1 Tab PO DAILY Habitrol 21 MG Patch* (Nicotine) 1 Each Patch.td24 1 Patch TD HS Nitrostat SL* (Nitroglycerin) 0.4 Mg Tablet 0.4 Mg SL Q5MIN PRN Reported Glipizide 5 Mg Tablet 1 Tab PO DAILY 30 Days Past Medical History Medical History Comment Rheumatoid arthritis on infusion therapy Uncontrolled diabetes mellitus with hemoglobin A1c 9.0 TIA in 2020 Hypertension STEMI May 2024 with PCI of the culprit lesion being the principal OM branch as well as PCI to a 70% RCA Past Surgical History Surgical History Comment No surgeries Past Family History Family History Comment Denies family history of cardiovascular disease. Family History: FH: myocardial infarction FATHER Brother Past Social History Social History Comment Patient is a current everyday smoker. Denies alcohol use. No recreational drugs. Physical Exam Last Vital Signs Recorded: RN Vital Signs have been reviewed: Yes, Temperature: 98.1, Source: Oral, Heart Rate: 85, Respiratory Rate: 15, BP: 128/90, Pulse Oximetry: 96, Weight: 90.910 Physical Exam General: Awake, alert, oriented. No apparent distress Neck: Supple. Normal range of motion. No JVD Respiratory: Lungs are clear to auscultation bilaterally. No respiratory distress. Chest: Normal shape and size. No accessory muscle use. Cardiovascular: Regular rate and rhythm. S1-S2. No murmur, gallop, rub. Gastrointestinal: + tenderness to the abdomen. Extremities: No lower extremity edema, cyanosis or clubbing. Neurologic: Alert and oriented x4. Nonfocal Psychiatric: Normal mood and affect. Skin: Normal color. Warm and dry. Review of Systems All Other Systems at this time: Reviewed and Negative ROS Patient denies chest pain or pressure. No shortness a breath. No dizziness, lightheadedness or syncope. Complains of abdominal pain as noted in HPI. Otherwise, review of systems is negative. Results EKG EKG Sinus rhythm. Low voltage. Echocardiogram Echocardiogram Moderate to possibly large circumferential pericardial effusion. No significant RA collapse by reception centre manager review. Diagram Lab Result Diagram: 11/03/2412411/03/24 012 Assessment/Plan Additional Plan This is a 59-year-old male who presented with abdominal pain. It is incidentally found to have pericardial effusion and cardiology consultation was requested. Pericardial effusion Likely secondary to rheumatoid arthritis. Given elevated creatinine it is reasonable to start IV fluids. Echocardiogram with moderate to large pericardial effusion without signs of hemodynamic collapse. We will repeat echocardiogram tomorrow. Patient will be transferred to the progressive care unit for further monitoring. Gallstone pancreatitis lipase 213 Surgical consultation is pending. --management per hospitalist Recent STEMI involving the OM and PCI of a 70% RCA No current chest pain or pressure Dual antiplatelet therapy with Plavix and aspirin. Held by hospitalist service. Resume as soon as able. --recommend Plavix 75 mg daily as soon as able and aspirin 81 mg daily for life. --recommend high-intensity statin to keep LDL less than 55 Diabetes mellitus, uncontrolled Hemoglobin A1c 9.0 --management per hospitalist Acute kidney injury On lactated Ringer's solution at 100 mL/hour --management per hospitalist Case discussed with Dr. Rojas who is in agreement with the above. Supervising MD Supervising Physician: DEBRA Yates NP Nov 03, 2024 11:09
--- NOTE | 2024-11-03 12:31 | RADIOLOGY REPORT ---
MR MRCP HISTORY: elevated lipase in view of gallstones COMPARISON: Ultrasound dated 11/03/2024 PROCEDURE: Multiplanar multisequence MRI images were obtained of the abdomen without intravenous cont rast Additional MIPS were obtained of the biliary system. FINDINGS: Bile ducts: -Intrahepatic ducts: Non-dilated. -Extrahepatic ducts: Non-dilated. -Common bile duct: Non-dilated. -Filling defects: No filling defects -Stricture: None. Gallbladder: Cholelithiasis. Mild pericholecystic edema. Mild gallbladder wall thickening. Pancreas: Fatty atrophy. Pancreatic duct: Suboptimally visualized. Lesions: None. Liver: Signal intensity: Homogenous. Contour: Smooth. Size: Normal. Lesions: No focal liver lesion. ADDITIONAL FINDINGS: Lung base: Large pericardial effusion. Pancreas: Normal. Spleen:Normal. Bowel: Mild edema associated with the proximal duodenum. Adrenal glands:Normal. Kidneys and ureters:Normal. Lymph nodes:Normal. Peritoneum: Nonspecific edema in the right upper quadrant. Vessels: Normal. Abdominal wall: Normal. Bone: No aggressive bone lesions IMPRESSION: Limited examination secondary to patient motion artifact. Cholelithiasis and mild pericholecystic edema. Mild gallbladder wall thickening. No intra or extrahepatic biliary duct dilation. Pancreatic duct is suboptimally visualized. Nonspecific edema in the right upper quadrant and surrounding the proximal duodenum ; possibly relate d to duodenitis /peptic ulcer disease. Clinical correlation advised. Large pericardial effusion.
--- NOTE | 2024-11-03 18:32 | CARDIOLOGY REPORT ---
APPROVED REPORT EXAM: Comprehensive 2D, Doppler, and color-flow Echocardiogram. Patient Location: [address] Blood Pressure: 146/83 mmHg Heart Rate: 85 bpm Rhythm: SINUS Indications CORONARY ARTERY DISEASE STENTS X2 05/2024 Plant Manager: Akbar Magallanes MD Previous echo: 05/09/24 [facility] (EF 55%, mod AI, trace MR, trace TR, no pericardial effusion) 2D Dimensions RVDd 2.8 cm IVSd 1.2 (0.7-1.1cm) LVDd 5.1 cm PWd 1.2 (0.7-1.1cm) IVSs 1.3 (0.8-1.2cm) LVDs 3.7 (2.5-4.0cm) PWs 1.4 (0.8-1.2cm) LVOT Diameter 2.13 (1.8-2.4cm) LVEF(%) 55.7 (>50%) Ao Asc Diam.4.16 cm IVC 24.80 mmFS (%) 27.2 % SV 64.9 ml CO 3.1 L/min M-Mode Dimensions Left Atrium(MM) 3.13 (2.5-4.0cm) Aortic Root 3.26 (2.2-3.7cm) Aortic Cusp Exc 2.48 (1.5-2.0cm) FS (%) 34 % ESV(Teich) 20.6 ml Aortic Valve AoV Peak Edilson. 129.6 cm/s AoV VTI 19.1 cm AO Peak GR. 6.7 mmHg AO Mean GR. 3 mmHg LVOT VTI 17.15 cm LVOT Peak Edilson. 115.5 cm/s ANDRIA(VTI)/BSA 3.21 cm2/m2 ANDRIA (VTI) 3.21 cm2 AI P 1/2 Time 284 ms Mitral Valve MV E Velocity 61.8 cm/s MV Peak Gr. 3 mmHg MV DECEL TIME 192 ms MV A Velocity 54.6 cm/s MV PHT 52 ms E/A Ratio 1.1 MVA (PHT) 4.23 cm2 MV VMax89.9 cm/s TDI Medial E' P. V 6.88 cm/s E/Medial E' 9.0 Pulmonary Vein S1 Velocity 30.8 cm/s D2 Velocity 39.9 cm/s PVa Pnnvlazr18.8 cm/s PVa Mrqrhopi441 msec LEFT VENTRICLE Normal LV size and function. Mild concentric hypertrophy. LVEF is 55-60%. RIGHT VENTRICLE RV is normal size and function. ATRIA LA size is normal. RA collapse is present consistent with early signs of hemodynamic compromise. AORTIC VALVE Trileaflet AV appears mildly sclerotic without stenosis. Moderate insufficiency. MITRAL VALVE Mild MV annular calcification without stenosis. Trace regurgitation. TRICUSPID VALVE TV appears structurally normal with trace regurgitation. PULMONIC VALVE Normal PV without stenosis, physiologic insufficiency. GREAT VESSELS Aortic root is normal in size. Ascending aorta is dilated at 4.16 cm. IVC is dilated and collapses le ss than 50% with inspiration. PERICARDIUM Moderate to large circumferential pericardial effusion with starting signs of hemodynamic compromise. MV inflow respiratory variation is present, RA collapse is present, RV diastolic collapse is present . BP measured at 146 / 83. Other Information Study Quality: Adequate Conclusion Normal LV size and function. Mild concentric hypertrophy. LVEF is 55-60%. RV is normal size and function. LA size is normal. RA collapse is present consistent with early signs of hemodynamic compromise. Trileaflet AV appears mildly sclerotic without stenosis. Moderate insufficiency. Mild MV annular calcification without stenosis. Trace regurgitation. TV appears structurally normal with trace regurgitation. Ascending aorta is dilated at 4.16 cm. Moderate to large circumferential pericardial effusion with starting signs of hemodynamic compromise. MV inflow respiratory variation is present, RA collapse is present, RV diastolic collapse is present . BP measured at 146 / 83.
[2024-11-04] VITALS (12 sets, daily range): BP systolic 72–223; BP diastolic 34–102; PULSE 68–92; RESP 12–32; TEMP 97.1–97.9; O2SAT 94–100
[2024-11-04] MEDS: CefTRIAXone/D5W-Rocephin 1gm 50 ML IV SCH (01:55)
[2024-11-04 05:54] LABS: BASOPHILS % (AUTO) 0.3 % (0-1); EOSINOPHILS # (AUTO) 0.2 X10'3 (0-0.9); EOSINOPHILS % (AUTO) 2.1 % (0-6); HEMATOCRIT 41.8 % (42.0-52.0); HEMOGLOBIN 13.9 g/dl (14.0-17.9); LYMPHOCYTES # (AUTO) 1.5 X10'3 (1.1-4.8); LYMPHOCYTES % (AUTO) 17.2 % (21-51); MEAN CORPUSCULAR HEMOGLOBIN 30.3 PG (27.0-31.0); MEAN CORPUSCULAR HGB CONC 33.1 g/dL (33.0-36.5); MEAN CORPUSCULAR VOLUME 91.4 FL (78-98); MEAN PLATELET VOLUME 9.1 FL (7.4-10.4); MONOCYTES # (AUTO) 0.6 X10'3 (0-0.9); MONOCYTES % (AUTO) 7.2 % (2-12); NEUTROPHILS # (AUTO) 6.3 X10'3 (1.8-7.7); NEUTROPHILS % (AUTO) 73.2 % (42-75); PLATELET COUNT 153 X10'3 (140-440); RED BLOOD COUNT 4.58 X10'6 (4.70-6.10); RED CELL DISTRIBUTION WIDTH 15.5 % (11.5-14.5); WHITE BLOOD COUNT 8.7 X10'3 (4.5-11.0)
[2024-11-04 06:13] LABS: ALANINE AMINOTRANSFERASE 22 U/L (12-78); ALBUMIN 3.2 G/DL (3.4-5.0); ALKALINE PHOSPHATASE 64 IU/L (46-116); ANION GAP 6 (8-16); ASPARTATE AMINO TRANSFERASE 13 U/L (10-37); BILIRUBIN,TOTAL 0.6 MG/DL (0.1-1.0); BLOOD UREA NITROGEN 15 MG/DL (7-18); BUN/CREATININE RATIO 12.2 (10.0-20.0); CALCIUM 8.5 MG/DL (8.5-10.1); CHLORIDE 107 MMOL/L (99-107); CHOL/HDL RATIO 4.3 (0.00-4.99); CHOLESTEROL 112 MG/DL (0-200); CREATININE 1.23 MG/DL (0.60-1.10); GLUCOSE 102 MG/DL (70-104); HDL CHOLESTEROL 26 MG/DL (35-60); LDL CHOLESTEROL 72 MG/DL (50-100); POTASSIUM 3.8 MMOL/L (3.5-5.1); SODIUM 142 MMOL/L (135-145); TOTAL CARBON DIOXIDE 28.6 MMOL/L (24-32); TOTAL PROTEIN 6.4 G/DL (6.4-8.2); TRIGLYCERIDES 71 MG/DL (20-135); eCRCL 64 ML/MIN; eGFR 61 ML/MIN
--- NOTE | 2024-11-04 13:58 | PROGRESS NOTE ---
Progress Note Cardiology Providers to CC ~ Subjective Subjective Patient denies chest pain or shortness for breath. Plans for possible surgical intervention today. He underwent repeat echocardiogram this morning. Pericardial effusion is unchanged from previous. Objective Result Diagram: 11/04/24 0511/04/24537 Objective General: Awake, alert, oriented. No apparent distress Neck: Supple. Normal range of motion. No JVD Respiratory: Lungs are clear to auscultation bilaterally. No respiratory distress. Chest: Normal shape and size. No accessory muscle use. Cardiovascular: Regular rate and rhythm. S1-S2. No murmur, gallop, rub. Extremities: No lower extremity edema, cyanosis or clubbing. Neurologic: Alert and oriented x4. Nonfocal Psychiatric: Normal mood and affect. Skin: Normal color. Warm and dry. Coagulation Studies Laboratory Tests Test 11/03/24 01:25 Prothrombin Time 11.1 SECONDS (9.0-12.0) INR International Normalized Ratio 1.1 INR Activated Partial Thromboplast Time 26 SECONDS (22-32) Coagulation Comments Problem\Assessment\Plan Additional Plan This is a 59-year-old male who presented with abdominal pain. It is incidentally found to have pericardial effusion and cardiology consultation was requested. Pericardial effusion Likely secondary to rheumatoid arthritis. Given elevated creatinine it is reasonable to start IV fluids. Echocardiogram with moderate to large pericardial effusion. body technician states beginning signs of RA collapse however none significant by storehouse clerk review. This morning echocardiogram is unchanged. Needs surgical intervention. From a cardiovascular standpoint he may proceed with surgery. Avoid dehydration. --repeat echocardiogram as outpatient in 2-3 weeks. Patient educated. Gallstone pancreatitis lipase 213 Surgical consultation is pending. --management per hospitalist Recent STEMI involving the OM and PCI of a 70% RCA No current chest pain or pressure Dual antiplatelet therapy with Plavix and aspirin. Held by hospitalist service. Resume as soon as able. --recommend Plavix 75 mg daily as soon as able and aspirin 81 mg daily for life. --recommend high-intensity statin to keep LDL less than 55 Diabetes mellitus, uncontrolled Hemoglobin A1c 9.0 --management per hospitalist Acute kidney injury On lactated Ringer's solution at 100 mL/hour --management per hospitalist Case discussed with Dr. Rojas who is in agreement with the above. Supervising Physician: DEBRA Zuñiga NP Nov 04, 2024 13:58
[2024-11-04] MEDS ORDERED: iohexol 300mg/ml 100ml inj. ONE (15:10)
--- NOTE | 2024-11-04 15:13 | PROGRESS NOTE- Residence ---
Progress Note - Resident Providers to CC Resident Creating Document: EARL CHRISTIAN, GERMAINE ~ Antibiotic Timeout Antibiotic Ordered?: Yes Subjective Patient has been evaluated at the bedside. The patient currently denies chest pain, shortness of breath, palpitations. Objective Vital Signs Date Time Temp Pulse Resp B/P (MAP) Pulse Ox O2 Delivery O2 Flow Rate FiO2 11/04/24 10:40 78 11/04/24 10:33 97.9 16 143/90 (107) 94 Room Air Physical exam: General: Well alert, well oriented, not confused, not agitated, not in acute distress, well cooperated during the physical. HEENT: Conjunctive are pink, sclerae clear, no icterus, pupil is equal in both sides, reactive to light, no ear discharge, no pharyngeal erythema or an edema. Neck: Supple, no JVD, no lymphadenopathy and thyromegaly. Chest: Equal air entry on both lungs, no additional sounds no rhonchi no wheezing at the moment. Cardiovascular: S1-S2 regular sinus rhythm and, regular rate, no gallops, no rubs, no murmurs Abdomen: No visible peristalsis, Bowel sounds present on auscultation, soft, tenderness at the level of the right upper quadrant, no guarding, no rigidity Extremities: No obvious deformities, no pitting edema bilaterally, capillary refill intact, peripheral pulsations are intact on both sides Central Nervous System: No focal neurological deficits, no motor or sensory weakness in all 4 extremities, could move all 4 extremities, 2+ deep tendon reflexes, negative Babinski. Musculoskeletal: No joint swelling, deformities, inflammations, and no scoliosis and back tenderness Skin: Warm and dry. Result Diagram: 11/04/24 0538 11/04/24 0538 Coagulation Studies Laboratory Tests Test 11/03/24 01:25 Prothrombin Time 11.1 SECONDS (9.0-12.0) INR International Normalized Ratio 1.1 INR Activated Partial Thromboplast Time 26 SECONDS (22-32) Coagulation Comments Assessment Assessment 59-year-old male patient came to the hospital transferred from [facility] for further management of gallstone pancreatitis Plan Plan Acute gallstone cholecystitis The patient came to the hospital with chief complaint of abdominal pain localized in the right upper quadrant with radiation to the right shoulder, described as a sharp type, 6/10 in intensity. Abdominal ultrasound: Cholelithiasis and gallbladder wall thickening. These findings may be consistent with acute cholecystitis in the appropriate clinical setting. Surgeon, Dr. Mcfarland consulted. Possible cholecystectomy on 11/04/2024 Cardiology was consulted due to pericardial effusion for clearance for surgery. Cardiology (Dr. Rojas) cleared the patient for surgery. Ceftriaxone 1 g IV daily. Day 2. Metronidazole 500 mg IV q.8h. Day 2. Culturelle [address] mmu b.i.d. Gallstone pancreatitis MRCP: Limited examination secondary to patient motion artifact. Cholelithiasis and mild pericholecystic edema. Mild gallbladder wall thickening. No intra or extrahepatic biliary duct dilation. Pancreatic duct is suboptimally visualized. Nonspecific edema in the right upper quadrant and surrounding the proximal duodenum ; possibly related to duodenitis /peptic ulcer disease. Clinical correlation advised. Large pericardial effusion. On IV LR at 100 mL/hour. Prerenal acute kidney injury likely secondary to dehydration: Initial creatinine 1.53, GFR 47, BUN/creatinine ratio 13.7. Fractional excretion of sodium: 0.4% indicating prerenal Current creatinine levels trending down: 1.23. LR 100 ml/hr Recent STEMI Pericardial effusion: May 2024, status post stents x2 Interrupted Plavix x5 days. Has not taken aspirin for a while. Triglycerides 71, cholesterol 112, LDL cholesterol 72, HDL cholesterol 26. Echocardiogram: Normal LV size and function. Mild concentric hypertrophy. LVEF is 55-60%. RV is normal size and function. LA size is normal. RA collapse is present consistent with early signs of hemodynamic compromise. Trileaflet AV appears mildly sclerotic without stenosis. Moderate insufficiency. Mild MV annular calcification without stenosis. Trace regurgitation. TV appears structurally normal with trace regurgitation. Ascending aorta is dilated at 4.16 cm. Moderate to large circumferential pericardial effusion with starting signs of hemodynamic compromise. MV inflow respiratory variation is present, RA collapse is present, RV diastolic collapse is present. BP measured at 146 / 83. On aspirin 81 mg daily. On atorvastatin 40 mg daily. Plavix to be resumed after surgery. Uncontrolled diabetes mellitus type 2 Current glucose levels 102. Hemoglobin A1c 9.0. Hyperglycemia/hypoglycemia protocol Tobacco use disorder Active smoker/40 pack years Counseling provided Code status: Full code DVT prophylaxis: Enoxaparin Analgesia/sedation: Morphine Line/tube: PIV GI prophylaxis: None Nutrition: NPO PT: Ordered Prognosis: Guarded Disposition: The patient awaiting for cholecystectomy. Cleared by cardiology. Earl Resendiz Internal Medicine Resident [facility] Date of Service: Nov 04, 2024 Billing Provider: PETE AGUIAR MD Common Visit Codes: [id number] INP/OBS CARE(HIGH) EARL CHRISTIAN, RES Nov 04, 2024 15:13 PETE AGUIAR MD Nov 04, 2024 18:09
--- NOTE | 2024-11-04 16:31 | RADIOLOGY REPORT ---
Indication: pericardial effusion Technique: CT axial images of the chest, abdomen and pelvis are obtained with intravenous contrast. Coronal and sagittal reformats were obtained. Radiation Dose Information: CTDI volume is 28 mGy. Dose-length product is 2157 mGy*cm Comparison: None FINDINGS: The trachea is patent. No pneumothorax. Bilateral atelectasis. Large pericardial effusion with rim enhancement. Heart normal in size. Subcarinal lymph node measurin g 13 mm. Left hilar lymph node measuring 15 mm. Right hilar lymph node measuring 26 mm. Left axillary lymph nodes measuring up to 10 mm. Right axillary lymph nodes measuring up to 11 mm. Small bilateral pleural effusions, graav-kczfnkt-dqjj-left. Adrenal glands, spleen, pancreas unremarkable. Cholelithiasis. Stranding surrounding the gallbladder . No enhancing hepatic lesion. Hepatic steatosis. The kidneys demonstrate no hydronephrosis. Bilateral striated nephrograms. Stomach is partially distended. Small bowel loops are normal in caliber. Colonic diverticular disease. There is some wall thickening with surrounding stranding involving the sigmoid colon diverticula. Moderate volume stool within the colon. Bowel wall edema of the ascending colon with surrounding stranding. Normal appendix. Abdominal aorta normal in caliber. Eccentric mural wall thrombus. Bladder is partially distended. No free pelvic fluid. No inguinal lymphadenopathy. Htwp-tg-[id number] bilateral sacroiliac degenerative joint disease. Mddy-dd-sxjzuotf thoracolumbar dege nerative disc disease. IMPRESSION: Large pericardial effusion with rim enhancement. Correlate for pericarditis and other etiologies. Mediastinal/hilar / axillary lymphadenopathy. Diverticulitis of the sigmoid colon. Tiny bilateral pleural effusions. Hepatic steatosis. Cholelithiasis with surrounding stranding. Recommend HIDA scan to exclude cholecystitis.. Bilateral renal striated nephrograms, likely representing pyelonephritis. Atherosclerotic disease as described. Bowel wall edema/ thickening of the ascending colon with surrounding edema and stranding. Correlate for colitis, inflammatory bowel disease. Other findings as described.
[2024-11-04] MEDS ORDERED: BUPIVAcaine 2.5mg/ml inj 50ml vial (contains preservative) ONE (16:41)
--- NOTE | 2024-11-04 16:52 | PROGRESS NOTE ---
Progress Note ID Providers to CC ~ Progress Note Progress Note: pt seen and examined-findings consistent with gallstone pancreatitis-pt needs robo rafi-possiblel open-discussed procedure including risks/benefits/alternatives RADHA HERNANDEZ MD Nov 04, 2024 16:52
[2024-11-04] MEDS ORDERED: morphine 2 MG/ML inj. syringe IV PRN (17:15)
[2024-11-04] MEDS: ringers solution, lacted 1,000 ML IV SCH (17:15)
[2024-11-04] MEDS ORDERED: HYDROmorphone/PF 0.2 MG/ML SYRINGE IV PRN ×2 (17:15)
[2024-11-04] MEDS ORDERED: hydrALAZINE 20mg/ml inj. IV PRN (17:15)
[2024-11-04] MEDS ORDERED: proCHLORperazine 10 MG/2 ml inj IV PRN (17:15)
[2024-11-04] MEDS ORDERED: acetaminophen 1,000mg/100ml IV 100 ML IV PRN (17:15)
[2024-11-04] MEDS ORDERED: morphine 4 MG/ML inj SYRINge IV PRN (17:15)
[2024-11-04] MEDS ORDERED: meperidine/PF 25mg/ml syringe IV PRN (17:15)
[2024-11-04] MEDS ORDERED: labetalol 20mg/4ml (5mg/ml) syringe IV PRN (17:15)
[2024-11-04] MEDS ORDERED: ondansetron/PF 4mg/2ml inj IV PRN (17:15)
[2024-11-04] MEDS ORDERED: fentaNYL /PF 50mcg/ml 5ml ampule ONE (17:22)
[2024-11-04] MEDS ORDERED: midazolam 1 mg/ML 2ml injection ONE (17:22)
[2024-11-04] MEDS ORDERED: sevoflurane 250ml liquid IH ONE (18:04)
[2024-11-04] MEDS ORDERED: LIDOcaine 2% (20mg/ml) 5ml vial ONE (18:10)
[2024-11-04] MEDS ORDERED: ceFOXitin 1000 MG inj ONE ×2 (18:10)
[2024-11-04] MEDS ORDERED: rocuronium 10mg/ml inj IV ONE ×3 (18:10)
[2024-11-04] MEDS ORDERED: phenylephrine 10mg/ml inj. ONE (18:10)
[2024-11-04] MEDS ORDERED: propofol inj 20 ML IV ONE (18:10)
[2024-11-04] MEDS ORDERED: fentaNYL/PF 50MCG/1 ML 2ML syringe IV PRN (18:15)
[2024-11-04] MEDS ORDERED: dexmedetomidin/NS 400mcg/100ml 100 ML IV PRN (18:15)
[2024-11-04] MEDS ORDERED: dexamethasone sod phosphate 4mg/ml inj. ONE (18:17)
[2024-11-04] MEDS ORDERED: ondansetron/PF 4mg/2ml inj ONE (18:17)
[2024-11-04] MEDS: BUPIVAcaine/PF 2.5 mg/ml (0.25%) 30ml vial IJ ONE (18:20)
--- NOTE | 2024-11-04 18:53 | OPERATIVE REPORT ---
Operative Report Providers to CC ~ Date of Procedure: Nov 04, 2024 Pre-Operative Diagnosis: gallstone pancreatitis/cholecystitis Post-Operative Diagnosis SAME as PRE-Op Procedure Performed joan mckee Surgeon: jean carlos urbina Anesthesiologist: Luisito Valle Type of Anesthesia: General Findings: cholecystitis Estimated Blood Loss: min Specimen Removed: gb RADHA HERNANDEZ MD Nov 04, 2024 18:53
--- NOTE | 2024-11-04 19:03 | CARDIOLOGY REPORT ---
APPROVED REPORT EXAM: Limited 2D, Doppler, and color-flow Echocardiogram. Patient Location: [facility] Blood Pressure: 143/90 mmHg Heart Rate: 78 bpm Indications Evaluate Pericardial Effusion Coronary Artery Disease HX of Stents x 2 (06/13) DRAPERY HAND: Akbar Magallanes MD [facility], EF: 55-60; mod AI; mod-large circ. ernst effusion with starting si gns of hemodynamic compromise. 2D Dimensions IVSd 0.8 (0.7-1.1cm) LVDd 5.6 cm PWd 0.9 (0.7-1.1cm) IVSs 1.4 (0.8-1.2cm) LVDs 3.7 (2.5-4.0cm) PWs 1.5 (0.8-1.2cm) LVEF(%) 62.9 (>50%) IVC 23.79 mm FS (%) 34.5 % SV 97.7 ml CO 7.7 L/min Aortic Valve AoV Peak Edilson. 107.9 cm/s AO Peak GR. 4.7 mmHg AI P 1/2 Time 684 ms Tricuspid Valve TR P. Velocity 96 cm/s RAP ESTIMATE 10 mmHg TR Peak Gr. 4 mmHg RVSP 14 mmHg LEFT VENTRICLE Normal LV size and wall thickness. Overall systolic function is normal. LVEF is 60%. RIGHT VENTRICLE RV is normal size and function. Unchanged from previous echo. ATRIA The left atrium size is normal. Mild RA collapse present. Unchanged from previous echo. AORTIC VALVE Trileaflet AV appears mildly sclerotic without stenosis. Moderate insufficiency. AV not fully evaluat ed due to limitied focused exam. MITRAL VALVE Mild mitral annular calcification without stenosis. MV not fully evaluated due to limitied focused ex am. TRICUSPID VALVE The tricuspid valve is normal in structure with trace regurgitation. PERICARDIUM Moderate to large pericardial effusion present with starting signs of hemodynamic compromise. MV infl ow variations present. RA collapse is present. BP is 143 / 90. Effusion unchanged from previous echo . Other Information Study Quality: Adequate Conclusion Normal LV size and wall thickness. Overall systolic function is normal. LVEF is 60%. RV is normal size and function. Unchanged from previous echo. The left atrium size is normal. Mild RA collapse present. Unchanged from previous echo. Trileaflet AV appears mildly sclerotic without stenosis. Moderate insufficiency. AV not fully evalu ated due to limitied focused exam. Mild mitral annular calcification without stenosis. MV not fully evaluated due to limitied focused e xam. The tricuspid valve is normal in structure with trace regurgitation. Moderate to large pericardial effusion present with starting signs of hemodynamic compromise. MV inf low variations present. RA collapse is present. BP is 143 / 90. Effusion unchanged from previous echo.
--- NOTE | 2024-11-04 19:23 | OPERATIVE REPORT ---
DATE OF SURGERY: 11/04/2024 DICTATING PHYSICIAN: Cruzito Mcfarland MD PREOPERATIVE DIAGNOSES: * Gallstone pancreatitis. * Cholecystitis. POSTOPERATIVE DIAGNOSES: * Gallstone pancreatitis * Cholecystitis PROCEDURE PERFORMED: Robotic cholecystectomy. SURGEON: Cruzito Mcfarland MD [place] [employer] LAW CLERK: None. ANESTHESIA: General/Dr. Valle. DRAINS: Doc x 1. INDICATIONS FOR OPERATION: A 59-year-old male with a history of abdominal pain, found to have gallstone pancreatitis, taken to surgery for robotic cholecystectomy. INTRAOPERATIVE FINDINGS: Cholecystitis. DESCRIPTION OF PROCEDURE: The patient was placed supine on the operating table. After induction of general anesthesia and placement of endotracheal tube, the abdomen was prepped and draped. A subumbilical incision was then made and Lisandra port placed using open technique and pneumoperitoneum was begun by insufflation of CO2. Additional ports were placed in left lower quadrant and right lateral abdomen. Robotic port was then docked. Camera placed, camera targeted. Additional ports were then docked and instruments placed. Abdomen was then explored. Gallbladder fundus was grasped and retracted cephalad. Adhesions were taken down. Cystic duct identified, isolated, ligated, clipped and divided the cystic artery. The gallbladder was then mobilized off the gallbladder fossa. Hemostasis was found to be adequate. Robotic instruments were removed ____ from the field. Gallbladder was placed in Endobag using laparoscope. Abdomen was copiously irrigated with large antibiotic-containing solution. Ports were then removed under laparoscopic vision with no evidence of active bleeding. Final port and camera withdrawn. Pneumoperitoneum was then evacuated, gallbladder was removed using the ____. Pneumoperitoneum was then evacuated. Wounds were closed in layers. Skin was closed with clips. Dressing was applied. The patient was transferred to recovery room in stable condition after general anesthesia. Cruzito Mcfarland MD TID: [id number] RECEIPT: [id number] FLAKITO/JOSSIE/NELLY
[2024-11-04] MEDS: FENTANYL-0.9 % NACL/PF 100 ML IV SCH (19:37)
[2024-11-04] MEDS: propofol 1000mg/100ml bottle 100 ML IV ONE (19:38)
[2024-11-04] MEDS: propofol 1000mg/100ml bottle 100 ML IV SCH ×2 (19:38→21:38)
[2024-11-04 19:49] LABS: ABG HCO3 20.6 mmol/L (21.0-28.0); ABG OXYGEN SATURATION 99.8 % (94.0-98.0); ABG PCO2 (T) 31.4 mmHg (35.0-48.0); ABG PO2 (T) 205.5 mmHg (83.0-108.0); FCOHb 2.1 % (0.5-1.5); FHHb 0.2 % (0.0-5.0); FMetHb 0.3 % (0.0-1.5); FO2Hb 97.4 % (94.0-98.0); PATIENT TEMPERATURE 35.9; PEEP 5 cm H2O; RESPIRATORY RATE 12 b/min; TIDAL VOLUME 500 mL; TOTAL HEMOGLOBIN 14.5 G/dl (13.5-17.5)
[2024-11-04] MEDS: lactobacillus rhamnosus 10,000 MMU CELLS/CAPSULE PO SCH (20:00)
[2024-11-04] MEDS: diatr meglu/diatrizoate 30ml oral sol.-(3 dose) bottle PO SCH (21:00)
--- NOTE | 2024-11-04 21:48 | RADIOLOGY REPORT ---
EXAM: DI CHEST,SINGLE VIEW TECHNIQUE: Single frontal chest radiograph CLINICAL HISTORY: ET Tube PLacement COMPARISON: DI CHEST,SINGLE VIEW on DOS: 11/03/24, DI CHEST,SINGLE VIEW on DOS: 05/29/24, XR CHEST 1 EW AP OR PA on DOS: 05/08/24 Findings/Impression: Frontal chest radiograph demonstrates no acute osseous or superficial soft tissue abnormalities. Endotracheal tube measures 6.9 cm from the jyoti. Consider advancing approximately 2 cm for more opt imal positioning. Right-sided IJ catheter terminates near the superior cavoatrial junction. The trachea is midline. Cardiomegaly. Bibasilar atelectasis. No pneumothorax, pleural effusions, or consolidations.
[2024-11-05] VITALS (29 sets, daily range): BP systolic 91–171; BP diastolic 55–87; PULSE 75–109; RESP 12–30; O2SAT 92–98
[2024-11-05 02:45] LABS: BASOPHILS % (AUTO) 0.2 % (0-1); EOSINOPHILS % (AUTO) 0.1 % (0-6); HEMATOCRIT 42.3 % (42.0-52.0); HEMOGLOBIN 14.1 g/dl (14.0-17.9); LYMPHOCYTES # (AUTO) 0.9 X10'3 (1.1-4.8); LYMPHOCYTES % (AUTO) 7.2 % (21-51); MEAN CORPUSCULAR HEMOGLOBIN 30.5 PG (27.0-31.0); MEAN CORPUSCULAR HGB CONC 33.2 g/dL (33.0-36.5); MEAN PLATELET VOLUME 9.8 FL (7.4-10.4); MONOCYTES # (AUTO) 0.1 X10'3 (0-0.9); MONOCYTES % (AUTO) 1.1 % (2-12); NEUTROPHILS # (AUTO) 11.3 X10'3 (1.8-7.7); NEUTROPHILS % (AUTO) 91.4 % (42-75); PLATELET COUNT 145 X10'3 (140-440); RED CELL DISTRIBUTION WIDTH 15.9 % (11.5-14.5); WHITE BLOOD COUNT 12.4 X10'3 (4.5-11.0)
[2024-11-05 02:56] LABS: ALANINE AMINOTRANSFERASE 27 U/L (12-78); ALKALINE PHOSPHATASE 61 IU/L (46-116); ANION GAP 13 (8-16); ASPARTATE AMINO TRANSFERASE 30 U/L (10-37); BILIRUBIN,TOTAL 0.8 MG/DL (0.1-1.0); BLOOD UREA NITROGEN 19 MG/DL (7-18); BUN/CREATININE RATIO 13.9 (10.0-20.0); CALCIUM 8.3 MG/DL (8.5-10.1); CHLORIDE 106 MMOL/L (99-107); CREATININE 1.37 MG/DL (0.60-1.10); GLUCOSE 178 MG/DL (70-104); LIPASE 12 U/L (16-77); MAGNESIUM 1.6 MG/DL (1.5-2.4); PHOSPHORUS 3.8 MG/DL (2.3-4.5); POTASSIUM 4.2 MMOL/L (3.5-5.1); SODIUM 142 MMOL/L (135-145); TOTAL CARBON DIOXIDE 23.2 MMOL/L (24-32); TOTAL PROTEIN 5.9 G/DL (6.4-8.2); TRIGLYCERIDES 63 MG/DL (20-135); eCRCL 58 ML/MIN; eGFR 54 ML/MIN
[2024-11-05 03:29] LABS: ABG BASE EXCESS -6.3 mmol/L (-2.0-3.0); ABG HCO3 16.9 mmol/L (21.0-28.0); ABG OXYGEN SATURATION 95.6 % (94.0-98.0); ABG PCO2 (T) 27.6 mmHg (35.0-48.0); ABG PH (T) 7.403 (7.350-7.450); ABG PO2 (T) 83.1 mmHg (83.0-108.0); FCOHb 1.7 % (0.5-1.5); FHHb 4.3 % (0.0-5.0); FMetHb 0.3 % (0.0-1.5); FO2Hb 93.7 % (94.0-98.0); MODE SIMV; PATIENT TEMPERATURE 36.9; PEEP 5 cm H2O; RESPIRATORY RATE 12 b/min; TIDAL VOLUME 500 mL; TOTAL HEMOGLOBIN 14.6 G/dl (13.5-17.5)
--- NOTE | 2024-11-05 06:35 | RADIOLOGY REPORT ---
EXAM: XR Chest, 1 View CLINICAL INDICATION: Pain TECHNIQUE: Frontal view of the chest. COMPARISON: XR Chest dated 11/04/2024 FINDINGS: LUNGS AND PLEURAL SPACES: See below. HEART: Cardiomegaly with mild congestion. MEDIASTINUM: Unremarkable. Normal mediastinal contour. BONES/JOINTS: Unremarkable. No acute fracture. TUBES, LINES AND DEVICES: Stable tubes and lines. IMPRESSION: 1. Cardiomegaly with mild congestion. 2. No significant change from the prior exam.
--- NOTE | 2024-11-05 06:44 | CONSULTATION ---
DATE OF CONSULTATION: 11/04/2024 DICTATING PHYSICIAN: Cruzito Mcfarland MD REASON FOR CONSULTATION: Evaluation for gallstone pancreatitis. HISTORY OF PRESENT ILLNESS: The patient is a 59-year-old male who presented to ER with complaints of abdominal discomfort. Found to have gallstone pancreatitis. Surgical evaluation is now requested. On further questioning, the patient complains of upper abdominal discomfort. PAST MEDICAL HISTORY: Significant for alcohol use. The patient has history of coronary artery disease, diabetes, tobacco use and previous GA. The patient also has history of pericardial effusion. PAST SURGICAL HISTORY: Stent placement. HOME MEDICATIONS: Include Plavix, lisinopril, metoprolol, atorvastatin, aspirin, Habitrol, and nitroglycerin. ALLERGIES: None. SOCIAL HISTORY: tobacco use, denies alcohol use. REVIEW OF SYSTEMS: See H and P. PHYSICAL EXAMINATION: GENERAL: Well-nourished male, in minimal distress VITAL SIGNS: Stable and unremarkable. HEART: Regular rate and rhythm. LUNGS: Clear to auscultation. ABDOMEN: Mild epigastric tenderness. EXTREMITIES: Unremarkable. NEUROLOGIC: Nonfocal. LABORATORY DATA: Labs include WBC of 8, hematocrit of 41, platelet count is 153. Chemistries; total bilirubin of 0.6. AST, ALT, alk phos unremarkable. Lipase 218 on admission. IMAGING STUDIES: MRCP reveals no common duct stones, does show cholelithiasis with pericholecystic edema. IMPRESSION: * Gallstone pancreatitis, question cholecystitis. * History of coronary artery disease, status post GA. * History of diabetes. * History of pericardial effusion. * Ongoing tobacco use. RECOMMENDATIONS: Robotic cholecystectomy when cleared by Cardiology. Cruzito Mcfarland MD TID: [id number] RECEIPT: [id number] KB/JOSSIE/AMI
[2024-11-05] MEDS: morphine 2 MG/ML inj. syringe IV PRN (07:59)
[2024-11-05] MEDS ORDERED: GLIP-299 PO (10:54)
[2024-11-05] MEDS ORDERED: CLOP75TA34 PO (10:55)
[2024-11-05] MEDS ORDERED: METO-539 PO (10:55)
[2024-11-05] MEDS ORDERED: LISI-642 PO (10:55)
[2024-11-05] MEDS ORDERED: NICO-687 TOP (10:56)
[2024-11-05] MEDS: morphine 2 MG/ML inj. syringe IV ONE (11:36)
[2024-11-05] MEDS: metoprolol tartrate 25mg tablet PO SCH ×2 (12:00→19:50)
--- NOTE | 2024-11-05 12:13 | PROGRESS NOTE- Residence ---
Progress Note - Resident Providers to CC Resident Creating Document: EARL CHRISTIAN, GERMAINE ~ Antibiotic Timeout Antibiotic Ordered?: Yes Subjective Patient has been evaluated at the bedside. The patient underwent cholecystectomy on 11/04/2024. Currently with nasal cannula 1 L, denies any pain. Objective Vital Signs Date Time Temp Pulse Resp B/P (MAP) Pulse Ox O2 Delivery O2 Flow Rate FiO2 11/05/24 12:00 98 11/05/24 11:36 12 11/05/24 11:00 99.1 116/60 (78) 95 Nasal Cannula 1.0 11/05/24 07:35 30 Physical exam: General: Well alert, awake, mildly somnolent, not anxious, well cooperative during physical exam. HEENT: Conjunctive are pink, sclerae clear, no icterus, pupil is equal in both sides, reactive to light, no ear discharge, no pharyngeal erythema or an edema. Neck: Supple, no JVD, no lymphadenopathy and thyromegaly. Chest: Equal air entry on both lungs, no additional sounds no rhonchi no wheezing at the moment. Cardiovascular: S1-S2 regular sinus rhythm and, regular rate, no gallops, no rubs, no murmurs Abdomen: No visible peristalsis, Bowel sounds present on auscultation, soft, mild tenderness in surgical area, clean dressing, no guarding, no rigidity Extremities: No obvious deformities, no pitting edema bilaterally, capillary refill intact, peripheral pulsations are intact on both sides Central Nervous System: No focal neurological deficits, no motor or sensory weakness in all 4 extremities, could move all 4 extremities, 2+ deep tendon reflexes, negative Babinski. Musculoskeletal: No joint swelling, deformities, inflammations, and no scoliosis and back tenderness Skin: Warm and dry. Result Diagram: 11/05/24 0210 11/05/24 0210 Coagulation Studies Laboratory Tests Test 11/03/24 01:25 Prothrombin Time 11.1 SECONDS (9.0-12.0) INR International Normalized Ratio 1.1 INR Activated Partial Thromboplast Time 26 SECONDS (22-32) Coagulation Comments Assessment Assessment 59-year-old male patient came to the hospital transferred from [facility] for further management of gallstone pancreatitis Plan Plan Acute gallstone cholecystitis: S/p robotic cholecystectomy on 11/04/2024: The patient came to the hospital with chief complaint of abdominal pain localized in the right upper quadrant with radiation to the right shoulder, described as a sharp type, 6/10 in intensity. Abdominal ultrasound: Cholelithiasis and gallbladder wall thickening. These findings may be consistent with acute cholecystitis in the appropriate clinical setting. Surgeon, Dr. Mcfarland consulted. Possible cholecystectomy on 11/04/2024 Cardiology was consulted due to pericardial effusion for clearance for surgery. Cardiology (Dr. Rojas) cleared the patient for surgery. Ceftriaxone 1 g IV daily. Day 2. Metronidazole 500 mg IV q.8h. Day 2. Culturelle [id number] mmu b.i.d. 11/05/2024: The patient underwent robotic cholecystectomy on 11/04/2024. By Dr. Green. The patient currently in ICU, on nasal cannula 1 L. on ceftriaxone and metronidazole IV day 3. Continue management as per setter out Dr. Britt. Gallstone pancreatitis MRCP: Limited examination secondary to patient motion artifact. Cholelithiasis and mild pericholecystic edema. Mild gallbladder wall thickening. No intra or extrahepatic biliary duct dilation. Pancreatic duct is suboptimally visualized. Nonspecific edema in the right upper quadrant and surrounding the proximal duodenum ; possibly related to duodenitis /peptic ulcer disease. Clinical correlation advised. Large pericardial effusion. On IV LR at 100 mL/hour. 11/05/2024: Lipase levels 12, the patient currently denies any epigastric pain. Prerenal acute kidney injury likely secondary to dehydration: Initial creatinine 1.53, GFR 47, BUN/creatinine ratio 13.7. Fractional excretion of sodium: 0.4% indicating prerenal Current creatinine levels trending down: 1.23. LR 100 ml/hr 11/05/2024: Creatinine 1.37, GFR 54. Continue LR at 100 mL/hour. Continue management by Dr. Green and setter out. Recent STEMI Pericardial effusion: May 2024, status post stents x2 Interrupted Plavix x5 days. Has not taken aspirin for a while. Triglycerides 71, cholesterol 112, LDL cholesterol 72, HDL cholesterol 26. Echocardiogram: Normal LV size and function. Mild concentric hypertrophy. LVEF is 55-60%. RV is normal size and function. LA size is normal. RA collapse is present consistent with early signs of hemodynamic compromise. Trileaflet AV appears mildly sclerotic without stenosis. Moderate insufficiency. Mild MV annular calcification without stenosis. Trace regurgitation. TV appears structurally normal with trace regurgitation. Ascending aorta is dilated at 4.16 cm. Moderate to large circumferential pericardial effusion with starting signs of hemodynamic compromise. MV inflow respiratory variation is present, RA collapse is present, RV diastolic collapse is present. BP measured at 146 / 83. On aspirin 81 mg daily. On atorvastatin 40 mg daily. Plavix to be resumed after surgery. Uncontrolled diabetes mellitus type 2 Current glucose levels 178. Hemoglobin A1c 9.0. Continue Hyperglycemia/hypoglycemia protocol Tobacco use disorder Active smoker/40 pack years Counseling provided Code status: Full code DVT prophylaxis: Enoxaparin Analgesia/sedation: Dilaudid Line/tube: PIV GI prophylaxis: None Nutrition: Clear liquid diet. PT: Ordered Prognosis: Guarded Disposition: Continue management by setter out and Dr. Green. Earl Resendiz Internal Medicine Resident [facility] Date of Service: Nov 05, 2024 Billing Provider: PETE AGUIAR MD Common Visit Codes: [id number] INP/OBS CARE(HIGH) EARL CHRISTIAN, RES Nov 05, 2024 12:13 PETE AGUIAR MD Nov 05, 2024 18:02
--- NOTE | 2024-11-05 17:38 | PROGRESS NOTE ---
Progress Note ID Providers to CC ~ Progress Note Progress Note: extubated with difficulty/vss/abd-drain output noted/labs noted a/p 1. s/p rafi-doing well/will need referral to ent as outpatient RADHA HERNANDEZ MD Nov 05, 2024 17:37
[2024-11-05] MEDS ORDERED: mineral oil/petrolatum ophthal oint EACHEYE SCH ×2 (20:00)
[2024-11-06] VITALS (21 sets, daily range): BP systolic 105–155; BP diastolic 69–100; PULSE 73–89; RESP 8–19; TEMP 97.3; O2SAT 90–97
[2024-11-06 01:56] LABS: BASOPHILS % (AUTO) 0.3 % (0-1); EOSINOPHILS # (AUTO) 0.1 X10'3 (0-0.9); EOSINOPHILS % (AUTO) 0.7 % (0-6); HEMATOCRIT 41.7 % (42.0-52.0); HEMOGLOBIN 14.1 g/dl (14.0-17.9); LYMPHOCYTES # (AUTO) 2.3 X10'3 (1.1-4.8); LYMPHOCYTES % (AUTO) 16.7 % (21-51); MEAN CORPUSCULAR HEMOGLOBIN 30.6 PG (27.0-31.0); MEAN CORPUSCULAR HGB CONC 33.7 g/dL (33.0-36.5); MEAN CORPUSCULAR VOLUME 90.9 FL (78-98); MEAN PLATELET VOLUME 8.9 FL (7.4-10.4); MONOCYTES % (AUTO) 7.1 % (2-12); NEUTROPHILS # (AUTO) 10.2 X10'3 (1.8-7.7); NEUTROPHILS % (AUTO) 75.2 % (42-75); PLATELET COUNT 161 X10'3 (140-440); RED BLOOD COUNT 4.59 X10'6 (4.70-6.10); WHITE BLOOD COUNT 13.6 X10'3 (4.5-11.0)
[2024-11-06 02:10] LABS: ALANINE AMINOTRANSFERASE 31 U/L (12-78); ALBUMIN 3.2 G/DL (3.4-5.0); ALKALINE PHOSPHATASE 62 IU/L (46-116); ANION GAP 7 (8-16); ASPARTATE AMINO TRANSFERASE 35 U/L (10-37); BILIRUBIN,TOTAL 0.5 MG/DL (0.1-1.0); BLOOD UREA NITROGEN 22 MG/DL (7-18); BUN/CREATININE RATIO 15.4 (10.0-20.0); CALCIUM 8.5 MG/DL (8.5-10.1); CHLORIDE 106 MMOL/L (99-107); CREATININE 1.43 MG/DL (0.60-1.10); GLUCOSE 182 MG/DL (70-104); LIPASE 19 U/L (16-77); POTASSIUM 4.1 MMOL/L (3.5-5.1); SODIUM 141 MMOL/L (135-145); TOTAL CARBON DIOXIDE 27.7 MMOL/L (24-32); TOTAL PROTEIN 6.3 G/DL (6.4-8.2); eCRCL 55 ML/MIN; eGFR 51 ML/MIN
[2024-11-06] MEDS: acetaminophen 1,000mg/100ml IV 100 ML IV ONE (02:46)
[2024-11-06 03:31] LABS: MAGNESIUM 1.7 MG/DL (1.5-2.4)
[2024-11-06] MEDS: HYDROcodone/acetaminophen 5mg/325mg tablet PO PRN (07:23)
[2024-11-06] MEDS: metoprolol tartrate 25mg tablet PO SCH (07:24)
--- NOTE | 2024-11-06 15:36 | PROGRESS NOTE- Residence ---
Progress Note - Resident Providers to CC Resident Creating Document: EARL CHRISTIAN, GERMAINE ~ Antibiotic Timeout Antibiotic Ordered?: Yes Subjective Patient has been evaluated at the bedside. The patient currently denies any pain. To be transferred to the floor today. Objective Vital Signs Date Time Temp Pulse Resp B/P (MAP) Pulse Ox O2 Delivery O2 Flow Rate FiO2 11/06/24 14:30 74 8 123/75 (91) 94 Nasal Cannula 2.0 11/06/24 12:30 99.0 11/05/24 07:35 30 Physical exam: General: Well alert, awake, not anxious, well cooperative during physical exam. HEENT: Conjunctive are pink, sclerae clear, no icterus, pupil is equal in both sides, reactive to light, no ear discharge, no pharyngeal erythema or an edema. Neck: Supple, no JVD, no lymphadenopathy and thyromegaly. Chest: Equal air entry on both lungs, no additional sounds no rhonchi no wheezing at the moment. Cardiovascular: S1-S2 regular sinus rhythm and, regular rate, no gallops, no rubs, no murmurs Abdomen: No visible peristalsis, Bowel sounds present on auscultation, soft, mild tenderness in surgical area, clean dressing, no guarding, no rigidity, drain in the right side of the abdomen. Extremities: No obvious deformities, no pitting edema bilaterally, capillary refill intact, peripheral pulsations are intact on both sides Central Nervous System: No focal neurological deficits, no motor or sensory weakness in all 4 extremities, could move all 4 extremities, 2+ deep tendon reflexes, negative Babinski. Musculoskeletal: No joint swelling, deformities, inflammations, and no scoliosis and back tenderness Skin: Warm and dry. Result Diagram: 11/06/24 0144 11/06/24 0144 Coagulation Studies Laboratory Tests Test 11/03/24 01:25 Prothrombin Time 11.1 SECONDS (9.0-12.0) INR International Normalized Ratio 1.1 INR Activated Partial Thromboplast Time 26 SECONDS (22-32) Coagulation Comments Assessment Assessment 59-year-old male patient came to the hospital transferred from [facility] for further management of gallstone pancreatitis Plan Plan Acute gallstone cholecystitis: S/p robotic cholecystectomy on 11/04/2024: The patient came to the hospital with chief complaint of abdominal pain localized in the right upper quadrant with radiation to the right shoulder, described as a sharp type, 6/10 in intensity. Abdominal ultrasound: Cholelithiasis and gallbladder wall thickening. These findings may be consistent with acute cholecystitis in the appropriate clinical setting. Surgeon, Dr. Mcfarland consulted. Possible cholecystectomy on 11/04/2024 Cardiology was consulted due to pericardial effusion for clearance for surgery. Cardiology (Dr. Rojas) cleared the patient for surgery. Ceftriaxone 1 g IV daily. Day 2. Metronidazole 500 mg IV q.8h. Day 2. Culturelle [address]35 mmu b.i.d. 11/05/2024: The patient underwent robotic cholecystectomy on 11/04/2024. By Dr. Green. The patient currently in ICU, on nasal cannula 1 L. on ceftriaxone and metronidazole IV day 3. Continue management as per accounts payable analyst and Dr. Mcfarland. 11/06/2024: The patient will be transferred out to PCU today. Two inguinal. Continue ceftriaxone and metronidazole IV day 4. Gallstone pancreatitis MRCP: Limited examination secondary to patient motion artifact. Cholelithiasis and mild pericholecystic edema. Mild gallbladder wall thickening. No intra or extrahepatic biliary duct dilation. Pancreatic duct is suboptimally visualized. Nonspecific edema in the right upper quadrant and surrounding the proximal duodenum ; possibly related to duodenitis /peptic ulcer disease. Clinical correlation advised. Large pericardial effusion. Current lipase levels 19. the patient currently denies any epigastric pain. Prerenal acute kidney injury likely secondary to dehydration: Initial creatinine 1.53, GFR 47, BUN/creatinine ratio 13.7. Fractional excretion of sodium: 0.4% indicating prerenal Current creatinine levels trending down: 1.23. Continue monitoring CMP. Recent STEMI Pericardial effusion: Sinus tachycardia: May 2024, status post stents x2 Interrupted Plavix x5 days. Has not taken aspirin for a while. Triglycerides 71, cholesterol 112, LDL cholesterol 72, HDL cholesterol 26. Echocardiogram: Normal LV size and function. Mild concentric hypertrophy. LVEF is 55-60%. RV is normal size and function. LA size is normal. RA collapse is present consistent with early signs of hemodynamic compromise. Trileaflet AV appears mildly sclerotic without stenosis. Moderate insufficiency. Mild MV annular calcification without stenosis. Trace regurgitation. TV appears structurally normal with trace regurgitation. Ascending aorta is dilated at 4.16 cm. Moderate to large circumferential pericardial effusion with starting signs of hemodynamic compromise. MV inflow respiratory variation is present, RA collapse is present, RV diastolic collapse is present. BP measured at 146 / 83. On aspirin 81 mg daily. On atorvastatin 40 mg daily. Metoprolol 25 mg b.i.d. Uncontrolled diabetes mellitus type 2 Current glucose levels 178. Hemoglobin A1c 9.0. Continue Hyperglycemia/hypoglycemia protocol Tobacco use disorder Active smoker/40 pack years Counseling provided Code status: Full code DVT prophylaxis: Enoxaparin Analgesia/sedation: [place]/tube: PIV GI prophylaxis: None Nutrition: Clear liquid diet. PT: Ordered, home. Prognosis: Guarded Disposition: We will continue medical management. Patient will be transferred to PCU today. Earl Resendiz Internal Medicine Resident [facility] Date of Service: Nov 06, 2024 Billing Provider: LYNDA ONOFRE MD Common Visit Codes: [id number] INP/OBS CARE(HIGH) EARL CHRISTIAN, RES Nov 06, 2024 15:36 LYNDA ONOFRE MD Nov 08, 2024 09:14
--- NOTE | 2024-11-06 17:51 | PROGRESS NOTE ---
Progress Note ID Providers to CC ~ Progress Note Progress Note: no surgical issues-call if needed RADHA HERNANDEZ MD Nov 06, 2024 17:51
[2024-11-07 02:00] VITALS: BP 108/78; PULSE 78; RESP 16; TEMP 97.2; O2SAT 96
[2024-11-07 06:00] VITALS: BP 136/86; PULSE 79; RESP 13; TEMP 97.2; O2SAT 92
[2024-11-07 06:34] LABS: BASOPHILS % (AUTO) 0.3 % (0-1); EOSINOPHILS # (AUTO) 0.2 X10'3 (0-0.9); EOSINOPHILS % (AUTO) 1.9 % (0-6); HEMATOCRIT 40.8 % (42.0-52.0); HEMOGLOBIN 13.9 g/dl (14.0-17.9); LYMPHOCYTES % (AUTO) 19.5 % (21-51); MEAN CORPUSCULAR HEMOGLOBIN 31.1 PG (27.0-31.0); MEAN CORPUSCULAR HGB CONC 33.9 g/dL (33.0-36.5); MEAN CORPUSCULAR VOLUME 91.7 FL (78-98); MEAN PLATELET VOLUME 9.6 FL (7.4-10.4); MONOCYTES # (AUTO) 0.7 X10'3 (0-0.9); NEUTROPHILS # (AUTO) 7.2 X10'3 (1.8-7.7); NEUTROPHILS % (AUTO) 71.3 % (42-75); PLATELET COUNT 135 X10'3 (140-440); RED BLOOD COUNT 4.46 X10'6 (4.70-6.10)
[2024-11-07 06:44] LABS: ALANINE AMINOTRANSFERASE 28 U/L (12-78); ALKALINE PHOSPHATASE 63 IU/L (46-116); ANION GAP 8 (8-16); ASPARTATE AMINO TRANSFERASE 16 U/L (10-37); BILIRUBIN,TOTAL 0.3 MG/DL (0.1-1.0); BLOOD UREA NITROGEN 26 MG/DL (7-18); BUN/CREATININE RATIO 16.5 (10.0-20.0); CALCIUM 8.3 MG/DL (8.5-10.1); CHLORIDE 105 MMOL/L (99-107); CREATININE 1.58 MG/DL (0.60-1.10); GLUCOSE 175 MG/DL (70-104); LIPASE 22 U/L (16-77); SODIUM 142 MMOL/L (135-145); TOTAL CARBON DIOXIDE 28.9 MMOL/L (24-32); TOTAL PROTEIN 5.9 G/DL (6.4-8.2); TRIGLYCERIDES 78 MG/DL (20-135); eCRCL 50 ML/MIN; eGFR 45 ML/MIN
[2024-11-07 07:50] VITALS: BP 148/83; PULSE 81
[2024-11-07 08:00] VITALS: RESP 13
[2024-11-07 10:00] VITALS: BP 117/73; PULSE 75; RESP 14; TEMP 97.5; O2SAT 94
[2024-11-07] MEDS ORDERED: ATOR20TA66 PO (10:05)
[2024-11-07] MEDS ORDERED: METO-539 PO (10:05)
[2024-11-07] MEDS ORDERED: ASPI-1071 PO (10:05)
[2024-11-07 12:37] VITALS: O2SAT 93
--- NOTE | 2024-11-07 20:01 | DISCHARGE SUMMARY-Residence ---
Discharge Summary Providers to CC Resident Creating Document: KATLYN TIDWELL RES ~ Discharge Summary Admission Diagnosis: gallstone pancreatitis/cholecystitis Hospital Course DATE OF ADMISSION: 11/03/2024 DATE OF DISCHARGE: 11/07/2024 Hospital course same as mentioned discharge summary. Discharge Diagnosis\Comment: Acute gallstone cholecystitis: S/p robotic cholecystectomy on 11/04/2024: Gallstone pancreatitis Prerenal acute kidney injury likely secondary to dehydration/vasomotor nephropathy Recent STEMI Significant pericardial effusion Sinus tachycardia Uncontrolled type 2 diabetes Tobacco use disorder Operations\Procedures: S/p robotic cholecystectomy on 11/04/2024: Consultants: Dr. Bruna Rojas Complications: None Condition on DC: Stable New Medications: Aspirin (Ecotrin*) 81 Mg Tablet.dr 1 TAB PO DAILY, #30 TAB.SR Atorvastatin Calcium (Atorvastatin Calcium) 20 Mg Tablet 40 MG PO DAILY, #60 TAB Continued Medications: Clopidogrel Bisulfate (Clopidogrel) 75 Mg Tablet 1 TAB PO DAILY Do not stop medication unless instructed by prescriber. 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 The patient reports four day of progressively worsening, sharp right upper quadrant abdominal pain associated with nausea and vomiting, worsened by oral intake. No relieving factors. He denies fever, chills, chest pain, or shortness of breath. Pain has since resolved. Evaluation at the outside facility showed gallstone consistent with the acute cholecystitis. Notably, he has not taken Plavix for five days due to vomiting. He has a known moderate pericardial effusion (stable), and history of STEMI requiring DAPT. He is diabetic on glipizide. Hospital course: On further evaluation abdominal ultrasound: Cholelithiasis with gallbladder wall thickening findings consistent with acute cholecystitis. MRCP cholelithiasis and mild pericholecystic edema. Mild gallbladder wall thickening. No intra or extrahepatic biliary ductal dilation. Surgeon was consulted and he had a cholecystectomy done on 11/04/2024. Echo was done which showed a significant pericardial effusion with starting signs of hemodynamic compromise, cardiology was consulted and recommended medical management and repeat echo. Repeat echo showed similar findings as above, he was cleared for surgery postop he has been transferred to the ICU and has been doing well. Was started on empiric antibiotics ceftriaxone and Flagyl. He had a recent STEMI with stenting x2. Home medication aspirin, statin and metoprolol were continu ed. He is a type 2 diabetic with A1c nine was placed on hypoglycemia protocol. For the concerning findings on echo, discussed with the patient and offered the patient CT surgeon's evaluation, but the patient insisted that he had to leave and did not want to stay for further evaluation. Recommended that he follows up with his educational audiologist in [place] as soon as possible as this pericardial effusion is new and concerning considering signs of developing hemodynamic compromise. He verbalized understanding and states that he will visit educational audiologist office on Saturday and follow up with them outpatient. He is currently asymptomatic and stable. He has a ASYA drain in place, he has been discharged with the drain and recommended to follow up with Dr. Mcfarland surgeon in a week. His hospital course is uncomplicated, He is hemodynamically stable on the day of discharge and his physical exam is as follows: General: Well alert, awake, not anxious, well cooperative during physical exam. HEENT: Conjunctive are pink, sclerae clear, no icterus, pupil is equal in both sides, reactive to light, no ear discharge, no pharyngeal erythema or an edema. Neck: Supple, no JVD, no lymphadenopathy and thyromegaly. Chest: Equal air entry on both lungs, no additional sounds no rhonchi no wheezing at the moment. Cardiovascular: S1-S2 regular sinus rhythm and, regular rate, no gallops, no rubs, no murmurs Abdomen: No visible peristalsis, Bowel sounds present on auscultation, soft, mild tenderness in surgical area, clean dressing, no guarding, no rigidity, drain in the right side of the abdomen. Extremities: No obvious deformities, no pitting edema bilaterally, capillary refill intact, peripheral pulsations are intact on both sides Central Nervous System: No focal neurological deficits, no motor or sensory weakness in all 4 extremities, could move all 4 extremities, 2+ deep tendon reflexes, negative Babinski. Musculoskeletal: No joint swelling, deformities, inflammations, and no scoliosis and back tenderness Skin: Warm and dry. Discharge medications can be found above. Patient is being discharged with the following advice: Follow up with PCP within a week, repeat BMP in a week. Repeat echocardiogram as an outpatient with primary educational audiologist in 2-3 weeks. Continue aspirin plavix and statin. Hold BP meds for sbp less than 100 and hr less than 90. Avoid strenuous activity that could cause pressure or strain on the belly, follow up with Dr Mcfarland in his office in a week from saturday. Monitor the output of the drain everyday and kep record of it. Recommended that he follows up with his educational audiologist in [place] as soon as possible as this pericardial effusion is new and concerning considering signs of developing hemodynamic compromise. He verbalized understanding and states that he will visit educational audiologist office on Saturday and follow up with them outpatient. If condition worsens call 911 or go the nearest er immediately. Laboratory Tests Test 11/05/24 20:30 11/06/24 01:44 11/06/24 11:10 11/06/24 16:57 Glucometer 211 mg/dl 163 mg/dl 182 mg/dl White Blood Count 13.6 X10'3 Red Blood Count 4.59 X10'6 Hemoglobin 14.1 g/dl Hematocrit 41.7 % Mean Corpuscular Volume 90.9 FL Mean Corpuscular Hemoglobin 30.6 PG Mean Corpuscular Hemoglobin Concent 33.7 g/dL Red Cell Distribution Width 16.0 % Platelet Count 161 X10'3 Mean Platelet Volume 8.9 FL Neutrophils (%) (Auto) 75.2 % Lymphocytes (%) (Auto) 16.7 % Monocytes (%) (Auto) 7.1 % Eosinophils (%) (Auto) 0.7 % Basophils (%) (Auto) 0.3 % Neutrophils # (Auto) 10.2 X10'3 Lymphocytes # (Auto) 2.3 X10'3 Monocytes # (Auto) 1.0 X10'3 Eosinophils # (Auto) 0.1 X10'3 Basophils # (Auto) 0.0 X10'3 CBC Comment Sodium Level 141 MMOL/L Potassium Level 4.1 MMOL/L Chloride Level 106 MMOL/L Carbon Dioxide Level 27.7 MMOL/L Anion Gap 7 Blood Urea Nitrogen 22 MG/DL Creatinine 1.43 MG/DL Estimated GFR/1.73 m2 51 ML/MIN BUN/Creatinine Ratio 15.4 Glucose Level 182 MG/DL Calcium Level 8.5 MG/DL Magnesium Level 1.7 MG/DL Total Bilirubin 0.5 MG/DL Aspartate Amino Transf (AST/SGOT) 35 U/L Alanine Aminotransferase (ALT/SGPT) 31 U/L Alkaline Phosphatase 62 IU/L Total Protein 6.3 G/DL Albumin 3.2 G/DL Globulin 3.1 G/DL Albumin/Globulin Ratio 1.0 Lipase 19 U/L Chemistry Comments Test 11/06/24 21:39 11/07/24 06:13 11/07/24 07:43 11/07/24 11:50 Glucometer 311 mg/dl 179 mg/dl 196 mg/dl White Blood Count 10.0 X10'3 Red Blood Count 4.46 X10'6 Hemoglobin 13.9 g/dl Hematocrit 40.8 % Mean Corpuscular Volume 91.7 FL Mean Corpuscular Hemoglobin 31.1 PG Mean Corpuscular Hemoglobin Concent 33.9 g/dL Red Cell Distribution Width 16.0 % Platelet Count 135 X10'3 Mean Platelet Volume 9.6 FL Neutrophils (%) (Auto) 71.3 % Lymphocytes (%) (Auto) 19.5 % Monocytes (%) (Auto) 7.0 % Eosinophils (%) (Auto) 1.9 % Basophils (%) (Auto) 0.3 % Neutrophils # (Auto) 7.2 X10'3 Lymphocytes # (Auto) 2.0 X10'3 Monocytes # (Auto) 0.7 X10'3 Eosinophils # (Auto) 0.2 X10'3 Basophils # (Auto) 0.0 X10'3 CBC Comment Sodium Level 142 MMOL/L Potassium Level 4.0 MMOL/L Chloride Level 105 MMOL/L Carbon Dioxide Level 28.9 MMOL/L Anion Gap 8 Blood Urea Nitrogen 26 MG/DL Creatinine 1.58 MG/DL Estimated GFR/1.73 m2 45 ML/MIN BUN/Creatinine Ratio 16.5 Glucose Level 175 MG/DL Calcium Level 8.3 MG/DL Total Bilirubin 0.3 MG/DL Aspartate Amino Transf (AST/SGOT) 16 U/L Alanine Aminotransferase (ALT/SGPT) 28 U/L Alkaline Phosphatase 63 IU/L Total Protein 5.9 G/DL Albumin 3.0 G/DL Globulin 2.9 G/DL Albumin/Globulin Ratio 1.0 Triglycerides Level 78 MG/DL Lipase 22 U/L Chemistry Comments *Problems/Diagnosis: (1) Acute cholecystitis Total Time Spent on D/C: > 30 Minutes Date of Service: Nov 07, 2024 Billing Provider: LYNDA ONOFRE MD Common Visit Codes: [id number] DISCH DAY >30min KATLYN TIDWELL, GERMAINE Nov 07, 2024 20:00 LYNDA ONOFRE MD Nov 08, 2024 09:14
--- NOTE | 2024-11-09 13:12 | PATHOLOGY REPORT ---
[facility] [address] [place] [address] SURGICAL PATHOLOGY REPORT CaseNumber: [id number] Surgeon:Cruzito Mcfarland M.D. CLINICAL INFORMATION CLINICAL INFORMATION: Abdominal pain. DIAGNOSIS DIAGNOSIS: GALLBLADDER; CHOLECYSTECTOMY - CHOLELITHIASIS. - CHRONIC CHOLECYSTITIS. MICROSCOPIC DESCRIPTION MICROSCOPIC DESCRIPTION: Performed. GROSS DESCRIPTION GROSS DESCRIPTION: Received in a container of formalin labeled with the patient's name, number, and " gallbladder" is a disrupted gallbladder which measures 7.5 cm long by 3.9 cm in diameter. The serosa is roughened and purple-luther. The surgical bed is unremarkable. Sectioning reveals a 4.5 x 3.5 cm irre gularly shaped luther stone. The mucosa is eroded and fibrotic. A discrete mass lesion is not identifie d. The wall of the gallbladder measures up to 0.3 cm thick. Housing Grant Analyst sections of the neck and wall of the gallbladder are submitted as A1.The time at which the specimen was removed was 1840. The time at which the specimen was placed in formalin was 1841. (incarmen) Electronically signed by: Vince Osuna, 11/09/2024 12:32:00 PM
== END 2024-11-07 14:15 | disposition home or self-care (01) | DRG 417 ==
LOC: ER 00:43 → ED HOLD 01:43 → SUR 3N 03:13 → PCU 3S 11:47 → CICU 2S 11-04 19:28 → PCU 3S 11-06 15:28
PROVIDERS: ADMIT Internal Medicine Critical Care Medicine; ATTEND Internal Medicine
PROC: 8E0W4CZ Robotic Assisted Procedure of Trunk Region, Percutaneous Endoscopic Approach (ICD-10-PCS; 2024-11-04)
PROC: BW251ZZ Computerized Tomography (CT Scan) of Chest, Abdomen and Pelvis using Low Osmolar Contrast (ICD-10-PCS; 2024-11-04)
PROC: 0FT44ZZ Resection of Gallbladder, Percutaneous Endoscopic Approach (ICD-10-PCS; principal; 2024-11-04 17:22)
PROC: 5A09357 Assistance with Respiratory Ventilation, Less than 24 Consecutive Hours, Continuous Positive Airway Pressure (ICD-10-PCS; 2024-11-05)
DX: K80.00 Calculus of gallbladder with acute cholecystitis without obstruction (principal); K85.10 Biliary acute pancreatitis without necrosis or infection; N17.0 Acute kidney failure with tubular necrosis; I31.39 Other pericardial effusion (noninflammatory); M06.9 Rheumatoid arthritis, unspecified; E11.9 Type 2 diabetes mellitus without complications; I25.10 Atherosclerotic heart disease of native coronary artery without angina pectoris; F17.210 Nicotine dependence, cigarettes, uncomplicated; I10 Essential (primary) hypertension; Z86.73 Personal history of transient ischemic attack (TIA), and cerebral infarction without residual deficits
CPT/HCPCS: 93306; 93308; 99285; Z7506; Z7508; 36415; 36600; 71045; 71260; 74177; 74181; 76700; 80053; 80061; 81001; 82570; 82803; 82948; 83036; 83690; 83735; 83935; 84100; 84300; 84478; 84484; 85018; 85025; 85610; 85730; 86885; 86900; 86901; 87070; 87081; 93005; 94003; 97116; 97161; 97530; A4215; A4615; A4618; A6213; A6258; A6449; A7000; C1752; C1758; G0378; J0131; J0694; J0696; J1100; J1650; J1815; J2003; J2250; J2270; J2371; J2405; J2704; J3010; J3490; J7030; J7040; J7120; Q9967

== ENCOUNTER 2024-11-14 00:56 | Inpatient (IN) | payer BC ==
[2024-11-14] VITALS (15 sets, daily range): BP systolic 89–172; BP diastolic 1–76; PULSE 106–110; RESP 12–18; O2SAT 95–100
[~2024-11-14] VITALS: Ht 172.7 cm; Wt 91.2 kg
[~2024-11-14 00:56] MED LIST changes: +ASPI-1071 PO; -ASPI-1265 PO; -CLOP-32 PO; +CLOP75TA34 PO; +GLIP-299 PO; -GLIP5TAB23 PO; +LISI-642 PO; -LISI5TAB22 PO; -METO-395 PO; +METO-539 PO; -NICO-687 TD; +NICO-687 TOP; -NITR0.4T51 SL
--- NOTE | 2024-11-14 01:27 | ELECTROCARDIOGRAPH REPORT ---
[facility] Test Date: 2024-11-14 Test Time: 01:05:09 Pat Name: YINKA GUZMAN Department: EMERGENCY ROOM Room: Gender: M Pharmacy Retail Support Specialist: CASEY : [id number] Requested By: ZAID AGUIRRE Order Number: [id number] Reading MD: Dr. Zaid Aguirre Measurements Intervals Olga Rate: 126 P: 53 [place]: 135 QRS: 30 QRSD: 63 T: 0 QT: 302 QTc: 438 Interpretive Statements Sinus tachycardia Probable inferior infarct, old Lateral leads are also involved Electronically Signed On 11-14-2024 1:49:[address] Zaid Aguirre Please click the below link to view image of tracing.
[2024-11-14] MEDS: normal saline 1000ML IV soln IV ONE (01:34)
--- NOTE | 2024-11-14 01:34 | Physician Documentation ---
History of Present Illness Chief Complaint: Abdominal Pain Stated Complaint: SEE CHIEF Time Seen by MD: 01:23 OK to notify your PCP?: Yes Primary Medical Doctor: [facility] Source: patient, RN/MD, EMS, RN notes reviewed, EMS notes reviewed, old records Mode of Arrival: EMS Exam Limitations: no limitations HPI 59 year old male seen in bed 10 presents to the emergency room as a transfer from [place] due to post status cholecystectomy. His surgery was performed at [facility] by Dr. Estrada during his stay from 11/03 to 11/07/2024. HPI from [facility]: This 59 year old male with a significant history of CAD stents x3, hypertension, high cholesterol, insulin dependent diabetes, who presents today for epigastric abdominal pain and upper left quadrant abdominal pain. One week ago patient cholecystectomy performed at [facility] has a ASYA drain in place, he states since the surgeries had mild pain in this area but over the last 24 hours has increased significantly currently 8 out of 10. Made worse with any palpitation over his abdomen. Patient denies any fevers or chills. Denies any nausea or vomiting. Patient states that ASYA drain output has not changed since surgery he last changed at this morning. CT Abdomen + Pelvis w IV Con: Impressions: 1. Recent surgical changed of cholecystectomy with no significant abscess or biloma. There is free air in the peritoneal space compatible with recent laparoscopic cholecystectomy. The surgical drain remains in place. There is no significant peritoneal fluid collection. 2. Large pericardial effusion 3. Diverticulosis of the desending and sigmoid colon without diverticulitis. 4. Small umbilical hernia contains fat. Significant lab findings: WBC: 16.9 Glucose: 247 BUN: 18.0 Creatinine: 1.16 Medication Reconciliation Allergies: Coded Allergies: Fish Containing Products (Verified Allergy, Unknown, 11/06/24) Scheduled Aspirin (Ecotrin*), 1 TAB PO DAILY Atorvastatin Calcium* (Lipitor*), 1 TAB PO DAILY, (Reported) Clopidogrel Bisulfate (Clopidogrel), 1 TAB PO DAILY, (Reported) Glipizide (Glipizide ER), 1 TAB PO BID, (Reported) Lisinopril* (Zestril*), 1 TAB PO DAILY, (Reported) Metoprolol Succinate* (Toprol Xl*), 1 TAB PO DAILY Nicotine 21 MG Patch* (Habitrol 21 MG Patch*), 1 PATCH TOP DAILY, (Reported) Discontinued Medications Unable to Obtain Medications (Unable to Obtain Medications), (Reported) Discontinued Reason: Other Past Medical History Past Medical History: Hypertension, Cholelithiasis, Diabetes, Arthritis Patient History: FH: myocardial infarction FATHER Brother Review of Systems All Other Systems at this time: Reviewed and Negative ROS As stated above in the HPI, otherwise all systems are reviewed and negative. Physical Exam Vital Signs: RN Vital Signs have been reviewed: Yes, Temperature: 98.3, Source: Oral, Heart Rate: 82, Respiratory Rate: 24, BP: 132/104, Pulse Oximetry: 93, Weight: 90.500 Oxygen Flow Rate: 6.0 Pulse Oximetry Reflects: adequate oxygenation Physical Exam General: Moderate distress. The patient is well developed, well nourished, nontoxic appearing. Skin: [place], warm and dry with no rashes. HEENT: Head was normocephalic and atraumatic. Eyes - pupils equal, round, reactive to light and accommodation. Extraocular movements were intact. Conjunctivae were nonicteric. Ears - bilateral tympanic membranes were normal. The mouth and oropharynx were clear with moist mucous membranes. There were no pharyngeal exudates or erythema. Neck: Supple and nontender. There was no jugular venous distention, lymphadenopathy, thyromegaly or masses. Chest: Clear to auscultation bilaterally without wheezes, rales or rhonchi. No accessory muscle use. No dullness to percussion. Heart: Rate regular and rhythmic. S1, S2. No murmurs. Palpation of the chest wall was normal. No rubs or thrills. Abdomen: ASYA drain. Firm abdomen with diffuse tenderness. Positive bowel sounds. No guarding or rebound. No hepatosplenomegaly or palpable masses. Extremities: No cyanosis, clubbing or edema. The patient moves all extremities. Pulses were equal and symmetric. Neurologic: Cranial nerves II-XII were intact. Sensation was intact to light touch throughout. Motor strength was 5/5 in all four extremities. Deep tendon reflexes were intact in both upper and lower extremities. Psychologic: The patient was oriented to person, place and time. The patient demonstrated appropriate judgement and insight. Progress Progress Note 0417: Messages were left with Dr. Cho and Marianna regarding surgery. 0418: The case was discussed with the resident who was informed on the patients case and kindly agreed to admission. 0435: Dr. Cabral was spoken to and informed in the patients case. Results/Orders Reviewed/noted all lab results: Yes Results/Orders Orders - ZAID SOL MD Cbc/Diff (11/14/24 01:25) MG (11/14/24 01:25) Urinalysis, Cult If Indicated (11/14/24:25) Culture Blood (11/14/24 01:25) Procalcitonin (11/14/24 01:25) Piperacillin/Tazo 3.375gm/50ml (Zosyn 3. (11/14/24 01:25) BMP (11/14/24 01:25) Lacticsepsis (11/14/24 01:25) Ct Abdomen Pelvis (11/14/24 01:32) Hydromorphone 1 Mg/Ml/Pf (Dilaudid Inj.) (11/14/24 01:35) Completed Orders - ZAID SOL MD Electrocardiogram (11/14/24 01:25) Normal Saline 1000ml (Sodium Chloride 10 (11/14/24 01:25) Vancomycin*Pharmacy To Dose* (Vancomycin (11/14/24 01:25) Vital Signs 11/14/24 11/14/24 00:58 01:18 Temp 98.3 Pulse 82 Resp 22 24 B/P (MAP) 132/104 Pulse Ox 93 O2 Flow Rate 6.0 Re-Evaluation Re-Evaluation : Re-Evaluation: Improved Progress Patient was seen and examined. Patient is given reassurance. Patient was complaining of severe abdominal pain and transferred to our facility for evaluation. Patient just had surgery and needs continuity care. Patient however is also quite complicated. Patient was having some renal insufficiency and dehydration. Chemistry shows a BUN of 20 and creatinine 1.52. Glucose is elevated 288. CBC did show a slight leukocytosis with a WBC of 14.9 hemoglobin hematocrit within normal limits platelets 223. There is a left shift of 90 neutrophils. Sed rate is elevated at 56. Lactic acid is also severely elevated at 5.2nd lactic acid is 3.0. This patient is transferred from another facility and had received fluid boluses consistent with sepsis. Nevertheless additional fluids were given to match the patient's in and outs. Potassium was slightly low at 3.3. Magnesium low at 1.6 phosphorus low at 2.0 and calcium also low at 7.8 with a multiple electrolyte abnormalities. Patient procalcitonin is elevated at 1.18 consistent with elevation poor nutrition and health status is reflected with an albumin of 1.3. Initial blood gas analysis showed some respiratory difficulties with a pH of 7.29, pCO2 52.1 with some hypercarbia with PO2 of 83.4 base excess -2.5 bicarb 23.8. Patient was given vancomycin. As well as 2 L of fluid in addition to the 30 milligrams/kilogram of fluids given at [place]. Additional pain medications were given including Ativan. Patient was then admitted to the hospitalist service for further workup and care. Continuous cardiac rehab nurse interpretation shows normal sinus rhythm heart rate 80s, no ectopy, normal, my interpretation. Pulse oximetry monitor interpretation shows low oxygenation at 6 L at 93%, abnormal, my interpretation. 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 Zaid Sol Measurements Intervals [place] Rate: 126 P: 53 [place]: 135 QRS: 30 QRSD: 63 T: 0 QT: 302 QTc: 438 Interpretive Statements Sinus tachycardia Probable inferior infarct, old Lateral leads are also involved Electronically Signed On 11-14-2024 1:49:[address] Zaid Sol Please click the below link to view image of tracing. EKG Date and Time:11/14/24104 Electronically Signed by: ZAID SOL MD Date and Time: 11/14/[address] : Impression Exam: CT CT ABDOMEN PELVIS W/ IV CONTRAST History: ABD PAIN COMPARISON: None Technique: Multidetector spiral CT of the abdomen and pelvis was performed from lung bases to pubic symphysis. Intravenous contrast was administered during this examination. Portal venous imaging was obtained. Axial, coronal and sagittal multiplanar reformats were performed by the technologist on a separate workstation. Radiation Dose : 1. Abdomen/Pelvis: CTDIvol 34.07 mGy, DLP 2042.89 mGy*cm. CONTRAST: Type of contrast: Omniscan 300 Contrast injected: 100 ml Findings: Lung Bases: New Extensive Multifocal Bibasilar pulmonary infiltrate with consolidative features. Normal heart size. Mildly progressive large pericardial effusion. Liver: The liver is normal in size. No focal lesions. Normal hepatic vascular enhancement. Gallbladder and Biliary Tree: Status post interval cholecystectomy and placement of right lateral abdominal approach percutaneous drainage catheter. There is moderate pneumoperitoneum within the ventral upper abdomen. Spleen: Unremarkable Pancreas: The pancreas is normal in appearance without focal lesions or abnormal enhancement. Adrenal Glands: Unremarkable Kidneys: No hydronephrosis. Bladder: Unremarkable Bowel: The stomach is grossly normal in appearance. Small bowel and colon are normal in caliber and distribution. Diverticulosis coli without CT evidence of acute diverticulitis. The appendix is normal. Ascites: Absent Lymphadenopathy: No mesenteric, retroperitoneal or periportal lymphadenopathy. Abdominal Wall and Mesentery: Unremarkable. Vasculature: The visualized abdominal aorta is normal in size and caliber. Atherosclerotic vascular calcifications. Abdominal and pelvic vessels demonstrate normal enhancement. Pelvic Organs: Unremarkable Musculoskeletal: No aggressive focal bony lesions, acute fractures or dislocation. IMPRESSION: 1. Moderate pneumoperitoneum and postsurgical change status post interval cholecystectomy and placement of abdominal drain. No evidence of abscess or other abnormal fluid collection. 2. Progressive large pericardial effusion. 3. Multifocal bibasilar pulmonary infiltrate with consolidative features. 4. Diverticulosis coli without CT evidence of acute diverticulitis. Critical Result: Pneumoperitoneum and large pericardial effusion Findings discussed with ZAID SOL at 11/14/2024 03:50 AM, and acknowledged receipt and understanding of the findings. Radiation optimization: All CT scans at this facility use at least one of these dose optimization techniques: automated exposure control mA and/or kV adjustment per patient size (includes targeted exams where dose is matched to clinical indication) or iterative reconstruction. Electronically Signed by:CHRISTOPHE RICO MD Date & Time: 11/14/24 0356 Medical Decision Making Differential Dx:Considerations: Include: AAA, Angina/IA, Aortic dissection, Appendicitis, Bowel obstruction, Cholangitis, Cholelithasis, Constipation, Diverticular disease, Esophageal rupture, Esophagitis, Gastritis/PUD, Gastroenteritis, GI hemorrhage, Hernia, Hepatitis, Inflammatory BD, Ischemic bowel, Pancreatitis, Porphyria, Testicular torsion, Trauma, intraabdominal, Urinary obstruction, Urinary tract infection, Urolithiasis, Other Departure Time of Disposition: 04:19 Disposition: 09 ADMITTED INPATIENT Admitted to Inpatient Unit: yes, to hospitalist Admission Level of Care: PCU with Tele Impression: Primary Impression: Status post cholecystectomy Additional Impressions: Leukocytosis Qualified Codes: D72.823 - Leukemoid reaction Pericardial effusion Abdominal pain Qualified Codes: R10.84 - Generalized abdominal pain Condition: Critical Referrals: NO PRIMARY CARE PROVIDER (PCP) Education Educated: Patient Educated regarding: diagnosis, need for follow up Critical Care Note Total Time (mins): 45 Critical Care Note The very real possibility of a deterioration of this patient's condition required the highest level of my preparedness for sudden, emergent intervention. I provided critical care services, which included medication orders, frequent reevaluations of the patient's condition and response to treatment, ordering and reviewing test results, and discussing the case with various consultants. Excludes time spent performing separately billable procedures. The critical care time associated with the care of the patient was 45 minutes. Signature Scribe Signature: Scribed for Zaid Sol MD by Je Guerin . 11/14/24 02:11 Attestation: The note accurately reflects work and decisions made by me.Zaid Sol MD 11/14/24 01:34 ZAID SOL MD Nov 14, 2024 01:34 JE CORDERO Nov 14, 2024 02:11
[2024-11-14] MEDS: piperacillin/tazo 3.375gm/50ml 50 ML IV ONE (02:00)
[2024-11-14] MEDS ORDERED: iohexol 300mg/ml 100ml inj. ONE (02:05)
[2024-11-14] MEDS: VANCOMYCIN 2GM/400ML H20 (PEG) 400 ML IV ONE ×2 (02:30→02:33)
[2024-11-14 02:40] LABS: MEAN PLATELET VOLUME 9.4 FL (7.4-10.4); RED CELL DISTRIBUTION WIDTH 15.8 % (11.5-14.5)
[2024-11-14 03:05] LABS: CREATININE 1.52 MG/DL (0.60-1.10); TOTAL CARBON DIOXIDE 25.5 MMOL/L (24-32); eCRCL 52 ML/MIN; eGFR 48 ML/MIN
--- NOTE | 2024-11-14 03:59 | RADIOLOGY REPORT ---
Exam: CT CT ABDOMEN PELVIS W/ IV CONTRAST History: ABD PAIN COMPARISON: None Technique: Multidetector spiral CT of the abdomen and pelvis was performed from lung bases to pubic s ymphysis. Intravenous contrast was administered during this examination. Portal venous imaging was o btained. Axial, coronal and sagittal multiplanar reformats were performed by the technologist on a ARPU workstation. Radiation Dose : 1. Abdomen/Pelvis: CTDIvol 34.07 mGy, DLP 2042.89 mGy*cm. CONTRAST: Type of contrast: Omniscan 300 Contrast injected: 100 ml Findings: Lung Bases: New Extensive Multifocal Bibasilar pulmonary infiltrate with consolidative features. Nor mal heart size. Mildly progressive large pericardial effusion. Liver: The liver is normal in size. No focal lesions. Normal hepatic vascular enhancement. Gallbladder and Biliary Tree: Status post interval cholecystectomy and placement of right lateral abd ominal approach percutaneous drainage catheter. There is moderate pneumoperitoneum within the ventral upper abdomen. Spleen: Unremarkable Pancreas: The pancreas is normal in appearance without focal lesions or abnormal enhancement. Adrenal Glands: Unremarkable Kidneys: No hydronephrosis. Bladder: Unremarkable Bowel: The stomach is grossly normal in appearance. Small bowel and colon are normal in caliber and d istribution. Diverticulosis coli without CT evidence of acute diverticulitis. The appendix is normal. Ascites: Absent Lymphadenopathy: No mesenteric, retroperitoneal or periportal lymphadenopathy. Abdominal Wall and Mesentery: Unremarkable. Vasculature: The visualized abdominal aorta is normal in size and caliber. Atherosclerotic vascular c alcifications. Abdominal and pelvic vessels demonstrate normal enhancement. Pelvic Organs: Unremarkable Musculoskeletal: No aggressive focal bony lesions, acute fractures or dislocation. IMPRESSION: 1. Moderate pneumoperitoneum and postsurgical change status post interval cholecystectomy and placeme nt of abdominal drain. No evidence of abscess or other abnormal fluid collection. 2. Progressive large pericardial effusion. 3. Multifocal bibasilar pulmonary infiltrate with consolidative features. 4. Diverticulosis coli without CT evidence of acute diverticulitis. Critical Result: Pneumoperitoneum and large pericardial effusion Findings discussed with ZAID AGUIRRE at 11/14/2024 03:50 AM, and acknowledged receipt and understandin g of the findings. Radiation optimization: All CT scans at this facility use at least one of these dose optimization ervin hniques: automated exposure control mA and/or kV adjustment per patient size (includes targeted exam s where dose is matched to clinical indication) or iterative reconstruction.
[2024-11-14] MEDS ORDERED: HYDROmorphone/PF 0.2 MG/ML SYRINGE IV PRN (04:45)
[2024-11-14] MEDS ORDERED: magnesium sulf-water 4G/100mL 100 ML IV PRN (04:45)
[2024-11-14] MEDS ORDERED: potassium Cl 20 mEq SR tablet PO PRN ×2 (04:45)
[2024-11-14] MEDS ORDERED: potassium Cl 40MEQ/1/2NS 520ml 520 ML IV PRN (04:45)
[2024-11-14] MEDS ORDERED: ondansetron/PF 4mg/2ml inj IV PRN (04:45)
[2024-11-14] MEDS ORDERED: magnesium Cl slow-release 64mg tablet PO PRN (04:45)
[2024-11-14] MEDS ORDERED: magnesium sulf-water 2g/50mL 50 ML IV PRN (04:45)
[2024-11-14] MEDS ORDERED: dextrose 50%-water 50ml dispensing syringe IV PRN ×2 (04:50)
[2024-11-14] MEDS ORDERED: DEXTROSE 15 GM of carb/4 tabs (each vial/BOTTLE has 4 tablets) PO PRN ×2 (04:50)
[2024-11-14] MEDS ORDERED: glucagon, human recombinant 1mg kit SUBCUT PRN (04:50)
--- NOTE | 2024-11-14 04:55 | HISTORY AND PHYSICAL-Residence ---
History & Physical Providers to CC Resident Creating Document: OVIDIO ROSENBAUM GERMAINE ~ History of Present Illness Primary Medical Doctor: [facility] Reason for Admit\Complaint: Sepsis History of Present Illness 59 years old male with history coronary artery disease, STEMI status post stent in May 2024, of cholecystitis, gallstone pancreatitis status post robotic cholecystectomy on 11/04/2024, precardial effusion, diabetes mellitus transferred from the [facility] with severe abdominal pain. Patient is very agitated and not provide any history and all information gathered from medical staff and medical chart. Cholecystectomy was done one week ago and a ASYA drain in placed, patient reported mild abdominal pain after surgery however over the last 24 hours had increased significantly. He denied fever or nausea vomiting she has. He reported the ASYA drain output has not changed since surgery he last changed at this morning Allergies: Coded Allergies: Fish Containing Products (Verified Allergy, Unknown, 11/06/24) Home Medications Home Medications Active Ecotrin* (Aspirin) 81 Mg Tablet.dr 1 Tab PO DAILY Atorvastatin Calcium 20 Mg Tablet 40 Mg PO DAILY Toprol Xl* (Metoprolol Succinate) 25 Mg Tab.sr.24h 1 Tab PO DAILY Reported Habitrol 21 MG Patch* (Nicotine) 1 Each Patch.td24 1 Patch TOP DAILY Clopidogrel (Clopidogrel Bisulfate) 75 Mg Tablet 1 Tab PO DAILY Do not stop medication unless instructed by prescriber. Zestril* (Lisinopril) 5 Mg Tablet 1 Tab PO DAILY Glipizide ER (Glipizide) 10 Mg Tab.er.24 1 Tab PO BID Past Medical History Past Medical History STEMI with two stent in May 2024 Cholecystitis/gallstone pancreatitis status post Cholecystectomy CKD Precordial your effusion Family History Family History: FH: myocardial infarction FATHER Brother ROS ROS The history of present illness included a review of system, which yielded relevant positives and negatives Exam Vitals: Vital Signs Date Time Temp Pulse Resp B/P (MAP) Pulse Ox O2 Delivery O2 Flow Rate FiO2 11/14/24 01:40 16 11/14/24 01:18 11/14/24 00:58 98.3 82 93 6.0 General: General: Awake and Alert, agitated HEENT: Conjunctiva pink, Sclera clear, Mucus Membranes moist. Neck: Supple without masses and tenderness, no JVD Resp: Lungs clear to auscultation bilaterally. Heart: Regular Rate and rhythm, normal S1 and S2 Abdomen: Soft Mild distention, generalized tenderness, drain with yellowish discharge Extremities: No cyanosis,clubbing or edema. Skin: Warm and Dry. Neurological: Awake alert speech is clear Patient is agitated not answering any questions, not cooperating with neurological exam Diagnostic Data Last Recorded Lab Results: 11/14/2422411/14/24 022 Advance Care Planning Advanced Care plannin - 30 Minutes Additional Plan 59 years old male with history of estimated Cathy status post stent, diabetes mellitus, cholecystitis/gallstone pancreatitis status post cholecystectomy, large pleural effusion transferred to the ED for severe abdominal pain Sepsis Severe abdominal pain status post cholecystectomy Large pericardial effusion Pneumoperitoneum Leukocytosis 14.9, lactic acid 3, procalcitonin 7.5 CT scan showed: 1. Moderate pneumoperitoneum and postsurgical change status post interval cholecystectomy and placement of abdominal drain. No evidence of abscess or other abnormal fluid collection. 2. Progressive large pericardial effusion. 3. Multifocal bibasilar pulmonary infiltrate with consolidative features. 4. Diverticulosis coli without CT evidence of acute diverticulitis. Critical Result: Pneumoperitoneum and large pericardial effusion e 11/04/24, Echocardiography : Normal LV size and wall thickness. Overall systolic function is normal. LVEF is 60%. RV is normal size and function. Unchanged from previous echo. The left atrium size is normal. Mild RA collapse present. Unchanged from previous echo. Trileaflet AV appears mildly sclerotic without stenosis. Moderate insufficiency. AV not fully evaluated due to limitied focused exam. Mild mitral annular calcification without stenosis. MV not fully evaluated due to limitied focused exam. The tricuspid valve is normal in structure with trace regurgitation. Moderate to large pericardial effusion present with starting signs of hemodynamic compromise. MV inflow variations present. RA collapse is present. BP is 143 / 90. Effusion unchanged from previous echo. Troponin ordered is pending EKG: Sinus tachycardia, rate 120, low amplitud Vital sign is stable at this time, there is no any hypotension, no JVD. Patient received 2 L fluid in the ED, Dilaudid, Vancomycin is seen started Echo stat ordered by ED doctor ED physician talked to helper teacher who agreed to admit patient and he will evaluate in a.m. Sent a message by ED doctor for surgeon Dr Mcfarland Diabetes mellitus Hemoglobin A1c nine On hyperglycemia hypoglycemia protocol Other comorbidities NSTEMI status post stent MEDICATION RECONCILIATION IS PENDING. Code Status: full DVT prophylaxis: scds Analgesia/sedation: Dilaudid Line/tube: Peripheral GI prophylaxis: Protonix Nutrition: NPO Prognosis: Guarded Disposition: Continue monitoring patient in PCU floor, waiting for surgeon and helper teacher recommendation Ovidio Rosenbaum MD Internal Medicine Resident Date of Service: Nov 14, 2024 Billing Provider: DEBBIE MORGAN MD, ELAHE, RES Nov 14, 2024 04:55
[2024-11-14 04:57] LABS: LEUKOCYTE ESTERASE ,URINE NEGATIVE (Neg); NITRITES, URINE NEGATIVE (Neg); OCCULT BLOOD,URINE TRACE-INTACT (Neg)
[2024-11-14 04:59] LABS: UA COLLECTION TYPE URINAL
[2024-11-14 05:08] LABS: SQUAMOUS EPITHELIAL CELL,UR FEW /LPF (FEW)
[2024-11-14] MEDS: normal saline 1000ml 1,000 ML IV SCH (07:59)
[2024-11-14] MEDS: docusate sod 100mg capsule PO SCH (08:00)
[2024-11-14] MEDS ORDERED: VANCOMYCIN 1,500MG inj. 1,500 MG in normal saline 500ml IV soln 300 ML IV SCH (08:00)
[2024-11-14] MEDS: K and/or MAG REPLACEMENT MC SCH (08:00)
[2024-11-14] MEDS: INSULIN LISPRO 100 UNIT/ML INSULN.PEN MULTI-DOSE SQ SCH ×2 (08:43→20:20)
[2024-11-14] MEDS: HYDROmorphone inj. 0.5 MG/0.5 ML DISP.SYRIN IV PRN (09:11)
[2024-11-14] MEDS: piperacillin/tazo 3.375gm/50ml 50 ML IV SCH (09:14)
--- NOTE | 2024-11-14 09:32 | ELECTROCARDIOGRAPH REPORT ---
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 Marcus Sol Measurements Intervals [place] Rate: 136 P: 49 GA: 137 QRS: 49 QRSD: 89 T: 253 QT: 323 QTc: 486 Interpretive Statements Sinus tachycardia Inferior infarct, age indeterminate Lateral leads are also involved Electronically Signed On 11-14-2024 18:47:[address] Marcus Sol Please click the below link to view image of tracing.
[2024-11-14] MEDS: ringers solution, lacted 1,000 ML IV ONE (10:35)
[2024-11-14 10:40] LABS: ABG BASE EXCESS -2.5 mmol/L (-2.0-3.0); ABG HCO3 23.8 mmol/L (21.0-28.0); ABG OXYGEN SATURATION 93.6 % (94.0-98.0); ABG PCO2 (T) 52.1 mmHg (35.0-48.0); ABG PH (T) 7.290 (7.350-7.450); ABG PO2 (T) 83.4 mmHg (83.0-108.0); FCOHb 2.1 % (0.5-1.5); FHHb 6.2 % (0.0-5.0); FIO2 95.0 mmHg/%; FLOW 15 L/min; FMetHb 0.3 % (0.0-1.5); FO2Hb 91.4 % (94.0-98.0); MODE MASK - NRB; PATIENT TEMPERATURE 39.4; TOTAL HEMOGLOBIN 15.0 G/dl (13.5-17.5)
[2024-11-14] MEDS: acetaminophen 1,000mg/100ml IV 100 ML IV ONE (10:52)
[2024-11-14] MEDS: LidoCAINE 2% Topical Jelly 11mL syringe (UROJET) TOP ONE (11:04)
[2024-11-14] MEDS ORDERED: fentaNYL/PF 50MCG/1 ML 2ML syringe ONE (12:24)
[2024-11-14] MEDS ORDERED: midazolam 1 mg/ML 2ml injection ONE ×2 (12:24→12:59)
[2024-11-14] MEDS ORDERED: LIDOcaine 1% 30ml preserv. free vial ONE (12:24)
[2024-11-14] MEDS ORDERED: LIDOcaine 2% (20mg/ml) 5ml vial ONE (13:12)
--- NOTE | 2024-11-14 13:22 | RADIOLOGY REPORT ---
CHEST RADIOGRAPH Indication: PREOP Technique: Single frontal view of the chest was obtained Comparison: DI CHEST,SINGLE VIEW on DOS: 11/05/24, DI CHEST,SINGLE VIEW on DOS: 11/04/24 FINDINGS: Lines and Tubes: Removal of endotracheal tube and right IJ central venous line. Lungs and Pleura: Slightly worsening pulmonary vascular congestion. Increased bibasilar atelectasis v ersus consolidation. No pneumothorax. Cardiomediastinal contours: Cardiomegaly. Bones: No acute osseous abnormality. IMPRESSION: Slightly worsening pulmonary vascular congestion. Increased bibasilar atelectasis versus consolidatio n.
--- NOTE | 2024-11-14 13:59 | PROGRESS NOTE ---
Progress Note ID Providers to CC ~ Progress Note Progress Note: pt seen and examined-needs emergent ex lap RADHA HERNANDEZ MD Nov 14, 2024 13:59
[2024-11-14] MEDS ORDERED: ketorolac trometh 30MG/ML vial 30 MG/ML VIAL ONE (14:20)
[2024-11-14] MEDS ORDERED: MIDAZolam 1mg/ml 10ml vial ONE (14:20)
[2024-11-14] MEDS ORDERED: fentaNYL /PF 50mcg/ml 5ml ampule ONE (14:20)
[2024-11-14] MEDS ORDERED: vancomycin/NS 1 GM ADD-VANTAGE 250 ML IV SCH (15:00)
[2024-11-14] MEDS ORDERED: rocuronium 10mg/ml inj IV ONE ×2 (15:05)
[2024-11-14] MEDS ORDERED: ceFOXitin 1000 MG inj ONE ×2 (15:18)
[2024-11-14] MEDS ORDERED: labetalol 20mg/4ml (5mg/ml) syringe IV ONE (15:26)
[2024-11-14] MEDS: ringers solution, lacted 1,000 ML IV SCH (15:45)
[2024-11-14] MEDS ORDERED: midazolam 100mg in NS 100ml 100 ML IV PRN (15:45)
[2024-11-14] MEDS: NORepinephrine 8mg/ 250ml NS 250 ML IV SCH (15:45)
--- NOTE | 2024-11-14 16:25 | PROGRESS NOTE ---
Anesthesia - Line Placement Line Placement CVP: Internal Jugular (Right) Arterial Line: Radial (Right with Ultrasound guidance) Separate "Sticks": Ultrasound Guidance, Vasc Structure Identified, Patency Confirmed, Entry Observed by [place].S. Sterile Protocol or Technique: Full Sterile Protocol Complications None EDUARDO GABRIEL MD Nov 14, 2024 16:25
--- NOTE | 2024-11-14 16:36 | OPERATIVE REPORT ---
Operative Report Providers to CC CC: RADHA HERNANDEZ MD ~ Date of Procedure: Nov 14, 2024 Pre-Operative Diagnosis: acute abdomen Post-Operative Diagnosis SAME as PRE-Op Procedure Performed ex lap/repair perf pyloric channel ulcer Surgeon: jean carlos In Shop Service Technician none Anesthesiologist: Moreno Khoury Type of Anesthesia: General Findings: perforatec pyloric channel ulcer/pericardial drain in stomach Estimated Blood Loss: 300 ml Specimen Removed: culture RADHA HERNANDEZ MD Nov 14, 2024 16:36
[2024-11-14 17:36] LABS: ABG BASE EXCESS -7.9 mmol/L (-2.0-3.0); ABG HCO3 17.2 mmol/L (21.0-28.0); ABG OXYGEN SATURATION 95.7 % (94.0-98.0); ABG PCO2 (T) 34.0 mmHg (35.0-48.0); ABG PH (T) 7.323 (7.350-7.450); ABG PO2 (T) 81.4 mmHg (83.0-108.0); FCOHb 1.6 % (0.5-1.5); FHHb 4.2 % (0.0-5.0); FIO2 70.0 mmHg/%; FMetHb 0.3 % (0.0-1.5); FO2Hb 93.9 % (94.0-98.0); MODE VENT - SIMV; PATIENT TEMPERATURE 37.2; PEEP 5 cm H2O; RESPIRATORY RATE 12 b/min; TIDAL VOLUME 600 mL; TOTAL HEMOGLOBIN 11.8 G/dl (13.5-17.5)
[2024-11-14] MEDS: pantoprazole 40MG/NS 100ML BAG 100 ML IV SCH (17:42)
[2024-11-14] MEDS: propofol 1000mg/100ml bottle 100 ML IV SCH (17:43)
[2024-11-14] MEDS: FENTANYL-0.9 % NACL/PF 100 ML IV SCH (17:43)
--- NOTE | 2024-11-14 19:10 | RADIOLOGY REPORT ---
CHEST RADIOGRAPH Indication: POST OP Technique: Single frontal view of the chest was obtained Comparison: DI CHEST,SINGLE VIEW on DOS: 11/14/24, DI CHEST,SINGLE VIEW on DOS: 11/05/24 FINDINGS: Lines and Tubes: Endotracheal tube terminates 6.3 cm above jyoti. Enteric tube terminates below the diaphragm outside the field of view. Tubing projects over the mediastinum. Right IJ central venous line terminates in the plane of the SVC. Lungs and Pleura: Similar bibasilar airspace disease. Possible small pleural effusions. No pneumothorax. Cardiomediastinal contours: Cardiomegaly. Bones: No acute osseous abnormality. IMPRESSION: Lines and tubes as above. Similar bibasilar airspace disease. Possible small pleural effusions.
--- NOTE | 2024-11-14 19:26 | CARDIOLOGY REPORT ---
APPROVED REPORT EXAM: Limited 2D, Doppler, and color-flow Echocardiogram. Patient Location: ER 10 Blood Pressure: 153/87 mmHg Heart Rate: 133 bpm Rhythm: Sinus Tachycardia Indications Pericardial Effusion Hx of CAD Hx of Stents X 2 (05/2024) Bottom Scrubber: Akbar Magallanes MD Previous echo: 11/04/2024 EF:60% mild RA collapse, mod to large Pericardial effusion present with mil dl hemodynamic compromise 2D Dimensions RVDd 3.2 cm LA Diam4.2 cm IVSd 1.0 (0.7-1.1cm) LVDd 4.9 cm PWd 1.1 (0.7-1.1cm) IVSs 1.1 (0.8-1.2cm) RA Minor3.7 cmLVDs 3.3 (2.5-4.0cm) PWs 0.9 (0.8-1.2cm) LVEF(%) 61.4 (>50%) FS (%) 33.0 % SV 68.0 ml CO 9.2 L/min Tricuspid Valve TR P. Velocity 250 cm/s RAP ESTIMATE 10 mmHg TR Peak Gr. 25 mmHg RVSP 35 mmHg LEFT VENTRICLE Normal LV size and wall thickness. Overall systolic function is normal. Overall LVEF is 60%. RIGHT VENTRICLE RV is normal size and function. Estimated PA systolic pressure is 35 mmHg. ATRIA Left atrium appears to be mildly dilated. The right atrium size is normal. There appears to be mild t o moderate RA collapse present. AORTIC VALVE Trileaflet AV appears sclerotic without gross stenosis. Mild insufficiency. Aortic valve not fully ev aluated due to limited exam. MITRAL VALVE Mild Moderate MV annular thickening without gross stenosis. Trace regurgitation. TRICUSPID VALVE TV appears structurally normal with trace regurgitation. GREAT VESSELS Aortic root appears to be dilated and measures at 4.00 cm. Ascending aorta is not well visualized. PERICARDIUM Moderate to large pericardial effusion with signs of hemodynamic compromise. Very mild MV inflow resp iratory variation is present. RA diastolic collapse is present. BP is measured at 153/87 mmHg. Other Information Study Quality: Adequate Conclusion Overall LVEF is 60%. Normal LV size and wall thickness. Overall systolic function is normal. RV is normal size and function. Estimated PA systolic pressure is 35 mmHg. Left atrium appears to be mildly dilated. The right atrium size is normal. There appears to be mild to moderate RA collapse present. Trileaflet AV appears sclerotic without gross stenosis. Mild insufficiency. Aortic valve not fully evaluated due to limited exam. Mild Moderate MV annular thickening without gross stenosis. Trace regurgitation. TV appears structurally normal with trace regurgitation. Aortic root appears to be dilated and measures at 4.00 cm. Ascending aorta is not well visualized. Moderate to large pericardial effusion with signs of hemodynamic compromise. Very mild MV inflow respiratory variation is present. RA diastolic collapse is present. BP is measured at 153/87 mmHg.
--- NOTE | 2024-11-14 19:28 | CARDIOLOGY REPORT ---
APPROVED REPORT EXAM: Emergent Limited 2D Echocardiogram for Pericardiocentesis guidance. Patient Location: CARDIAC [facility]RARY CIRCULATION CLERK Blood Pressure: 153/87 mmHg Heart Rate: 63 bpm Rhythm: Sinus Indications Pericardial Efffusion Pericardiocentesis Post pericardiocentesis procedure 1000 mls of fluid removed from pericardial space. Hx of CAD Hx of Stents X 2 (05/2024) Tape Keller Operator Performing Pericardiocentesis: BV. Marianna MD Patients Tape Keller Operator: Akbar Magallanes MD Previous echo: 11/14/2024 [facility] EF: 60%, moderate to Large Pericardial effusion, norm RA, mild to mod erate RA collapse LEFT VENTRICLE Pre pericardiocentesis: Normal LV size and wall thickness. Overall systolic function is normal. Larg e pericardial effusion is present with evidence of tamponade physiology.. Post pericardiocentesis: 10 00 ml of fluid was removed from the pericardial space. Trace pericardial effusion without any evidenc e of hemodynamic compromise. Overall LVEF is 60%. RIGHT VENTRICLE Pre periocardiocentesis: RV is normal size with normal systolic function. RV appeared to show early signs of RV diastolic collapse. Post pericardiocentesis: RV has normal systolic function with trace pericardial effusion. No evidence of hemodynamic compromise. ATRIA Pre pericardiocentesis: The left atrium size is normal. The right atrium size is normal with mild to moderate diastolic collapse. Post pericaridiocentesis: The RA size is normal without evidence of hem odynamic compromise. Other Information Study Quality: Adequate Conclusion Overall LVEF is 60%. Pre pericardiocentesis: Normal LV size and wall thickness. Overall systolic function is normal. La rge pericardial effusion is present with evidence of tamponade physiology.. Post pericardiocentesis: 1000 ml of fluid was removed from the pericardial space. Trace pericardial effusion without any e vidence of hemodynamic compromise. Pre periocardiocentesis: RV is normal size with normal systolic function. RV appeared to show ea rly signs of RV diastolic collapse. Post pericardiocentesis: RV has normal systolic function with tr virginie pericardial effusion. No evidence of hemodynamic compromise. Pre pericardiocentesis: The left atrium size is normal. The right atrium size is normal with mild to moderate diastolic collapse. Post pericaridiocentesis: The RA size is normal without evidence of hemodynamic compromise.
[2024-11-14] MEDS: vancomycin/NS 1 GM ADD-VANTAGE 250 ML IV SCH (20:00)
[2024-11-14] MEDS ORDERED: pantoprazole 40MG/NS 100ML BAG 100 ML IV SCH ×2 (21:00)
[2024-11-15] VITALS (37 sets, daily range): BP systolic 84–155; BP diastolic 43–78; PULSE 81–149; RESP 8–16; O2SAT 92–98
[2024-11-15 00:50] LABS: MEAN PLATELET VOLUME 9.4 FL (7.4-10.4); RED CELL DISTRIBUTION WIDTH 15.8 % (11.5-14.5)
[2024-11-15 00:54] LABS: CREATININE 1.11 MG/DL (0.60-1.10); TOTAL CARBON DIOXIDE 23.2 MMOL/L (24-32); eCRCL 71 ML/MIN; eGFR 68 ML/MIN
[2024-11-15 01:42] LABS: PHOSPHORUS 2.6 MG/DL (2.3-4.5)
[2024-11-15 03:24] LABS: ABG BASE EXCESS -2.0 mmol/L (-2.0-3.0); ABG HCO3 22.5 mmol/L (21.0-28.0); ABG OXYGEN SATURATION 95.6 % (94.0-98.0); ABG PCO2 (T) 37.5 mmHg (35.0-48.0); ABG PH (T) 7.397 (7.350-7.450); ABG PO2 (T) 80.2 mmHg (83.0-108.0); FCOHb 0.8 % (0.5-1.5); FHHb 4.4 % (0.0-5.0); FIO2 40.0 mmHg/%; FMetHb 0.0 % (0.0-1.5); FO2Hb 94.8 % (94.0-98.0); MODE VENT - SIMV; PATIENT TEMPERATURE 37.3; PEEP 5 cm H2O; RESPIRATORY RATE 12 b/min; TIDAL VOLUME 600 mL; TOTAL HEMOGLOBIN 11.0 G/dl (13.5-17.5)
--- NOTE | 2024-11-15 07:00 | RADIOLOGY REPORT ---
CHEST RADIOGRAPH Indication: Intubated Technique: Single frontal view of the chest was obtained COMPARISON: DI CHEST,SINGLE VIEW on DOS: 11/14/24, DI CHEST,SINGLE VIEW on DOS: 11/14/24, DI CHEST,SING LE VIEW on DOS: 11/05/24, DI CHEST,SINGLE VIEW on DOS: 11/04/24, DI CHEST,SINGLE VIEW on DOS: 11/03/24 FINDINGS: Lines and Tubes: Endotracheal tube, enteric catheter and right central venous catheter in satisfactor y position Lungs: Pulmonary vascular congestion Pleura: Small bilateral pleural effusions No pneumothorax. Cardiomediastinal contours: Unremarkable Bones: Unremarkable IMPRESSION: Lines and tubes in satisfactory position. No significant interval change.
--- NOTE | 2024-11-15 10:59 | PROGRESS NOTE ---
Progress Note ID Providers to CC ~ Progress Note Progress Note: sedated/vss/abd-drain output noted/ct pendig/labs noted a/p 1. s/p repair perf ulcer-cultures noted-on protonix/cont supportive care RADHA HERNANDEZ MD Nov 15, 2024 10:59
[2024-11-15] MEDS: micafungin inj 100 MG in normal saline 100ml IV soln 100 ML IV SCH (11:12)
--- NOTE | 2024-11-15 12:03 | PROGRESS NOTE ---
Progress Note Cardiology Providers to CC ~ Subjective Subjective Patient seen and examined this afternoon. Patient sedated and intubated Patient had successful pericardiocentesis for cardiac tamponade. Pericardial drain still in place. Patient also had abdominal surgery for perforated peptic ulcer on 11/14/2024. Objective Result Diagram: 11/15/24 0018 11/15/24 001 Objective General: Patient sedated and intubated. Neck: Supple without enlargement of the thyroid, or lymphadenopathy, Chest: Normal size and shape, no tenderness, nonlabored breathing, Breath sounds diminished bibasilar Heart: Regular in rate and rhythm, S1 and S2 normal, no S3-S4 or murmurs. Abdomen: Soft, nontender, no organomegaly, bowel sounds present. Extremities: No edema cyanosis or clubbing. Problem\Assessment\Plan Additional Plan 1. Perforated peptic ulcer: Status post surgery on 11/14/2024. About a week ago patient had laparoscopic cholecystectomy by 2.: Sepsis: Blood culture growing budding yeast,? Fungemia. ID consult pending 2. Cardiac tamponade status post pericardial centesis on 11/14/2024. 1 L drained. No significant output on the pericardial drain. 3. CAD status post coronary artery stenting: Continue aspirin and Plavix. 4.: Diabetes, hypertension, hyperlipidemia: Recommend risk factor modification to keep his LDL less than 55 mg %, hemoglobin A1c less than 7% and systolic blood pressure less than 130 mm of mercury. VALENTÍN HOLLOWAY MD Nov 15, 2024 12:03
[2024-11-15] MEDS ORDERED: iohexol 300mg/ml 100ml inj. ONE (12:17)
--- NOTE | 2024-11-15 13:01 | RADIOLOGY REPORT ---
Procedure: CT CT CHEST W/ IV CONTRAST Reason for study/Clinical History: effusion Comparison Study: Earlier film of the same date. Exam Date: 11/15/2024 12:32 PM TECHNIQUE: Multidetector CT of the chest was performed from the lung apices to the upper abdomen with out the use of intravenous contract. Axial, coronal and sagittal multiplanar reformats were performed . Radiation Dose Information: CT Dose: CTDI volume is 18.3 mGy. Dose-length product is 723 mGy*cm The dose indicators for CT are the volume Computed Tomography (CT) Dose Index (CTDIvol) and the Dose Length Product (DLP), and are measured in units of mGy and mGy-cm, respectively. These indicators are not patient dose, but values generated from the CT scanner acquisition factors. The report includes radiation exposure data for exposures received during this examination. FINDINGS: An NG tube is present and an endotracheal tube is present. Right IJ catheter present. There is a drai nage catheter in the left subpleural space with its tip in the right upper quadrant. Lower neck: Normal thyroid. Lungs: Compressive atelectasis of the lower lobes. Heart/Vascular Structures: Heart size is enlarged. Trace pericardial thickening. Lymph Nodes: No adenopathy Pleura: Small bilateral pleural effusions, right greater than left. Musculoskeletal: No acute osseous abnormality. Soft tissues: Normal. Upper abdomen: Tiny nonobstructive stones in the right kidney. Free air in the upper abdomen. IMPRESSION: 1. Compared to previous exam there has been evacuation of pericardial effusion. 2. There are now small bilateral pleural effusions, right slightly greater than left with mild compre ssive atelectasis of the lower lobes. 3. Free air is still seen in the upper abdomen there is no a drainage catheter present. Radiation optimization: All CT scans at this facility use at least one of these dose optimization ervin hniques: automated exposure control mA and/or kV adjustment per patient size (includes targeted exam s where dose is matched to clinical indication) or iterative reconstruction.
[2024-11-15] MEDS: dexmedetomidin/NS 400mcg/100ml 100 ML IV SCH (14:40)
[2024-11-15] MEDS ORDERED: UNABLE TO OBTAIN (14:52)
[2024-11-15] MEDS: VANCOMYCIN LEVEL IV ONE (19:10)
--- NOTE | 2024-11-15 19:11 | PROGRESS NOTE- Residence ---
Progress Note - Resident Providers to CC Resident Creating Document: JESS GUZMAN, RES ~ Antibiotic Timeout Antibiotic Ordered?: Yes Subjective The patient was seen and examined at bedside today. He underwent pericardiocentesis yesterday by Dr. Cabral and exploratory laparotomy with pyloric channel ulcer perforation repair by Dr. Mcfarland. He is still intubated and mechanically ventilated. Objective Vital Signs Date Time Temp Pulse Resp B/P (MAP) Pulse Ox O2 Delivery O2 Flow Rate FiO2 11/15/24 18:00 99.0 85 10 98/50 (66) 96 Nasal Cannula 4.0 11/15/24 16:20 40 Result Diagram: 11/15/24 0018 11/15/24 0018 Head: Normocephalic with an atraumatic Eyes: Pupils- 3mm, reacting to light, conjunctiva- anicteric Nose and throat: No polyps, septum- normal, no mucosal ulcers Neck: Supple, no lymphadenopathy, no carotid bruit Respiratory: No use of accessory muscles of respiration, Bilateral normal vesiscular breath sounds heard. No wheeze, rhochi or creps Cardiac: S1-S2 heard, rythm regular, no gallop/murmur Abdomen: non distended, no tenderness, no organomegaly, bowel sounds - heard Extremities: no clubbing, no pedal edema, no deformities, peripheral pulses - 2+ Skin: warm and dry, no rash, no purpura Neuro: No focal deficit, gross cranial nerve exam - normal Plan Plan Acute hypoxemic respiratory failure Sepsis Perforated viscus s/p ex lap with pyloric channel repair, 11/14/2024 Status post cholecystectomy, 11/04/2024 Patient is currently in the ICU being managed by Dr. Mcfarland. Patient underwent exploratory laparotomy with pyloric ulcer perforation repair by Dr. Mcfarland yesterday. Intubated and mechanically ventilated. On IV Zosyn. Large pericardial effusion S/p pericardiocentesis Patient underwent pericardiocentesis on 11/14/2024. 1 L of fluid drained. Drain in place. Dr. Cabral is following. CAD s/p coronary artery stenting Continue aspirin Plavix. Dr. Cabral on board. Diabetes HB A1c 8.5. Patient currently on medium dose supplemental insulin protocol. Continue monitor sugars and consider adding Lantus and fixed dose Humalog. Hypertension Current blood pressures soft. Hold all antihypertensives. Code Status: Full code Analgesia/Sedation: Dilaudid Lines/Tubes: PIV GI Prophylaxis: Protonix Prognosis: Guarded Disposition: Continue care in the ICU. We will assume care of the patient after she is downgraded to the floors. Jess Guzman MD Internal Medicine Resident PGY-1 Date of Service: Nov 15, 2024 Billing Provider: SABRINA HULL MD,JESS PRATHER, RES Nov 15, 2024 19:11
[2024-11-15] MEDS ORDERED: vancomycin/NS 1 GM ADD-VANTAGE 250 ML IV SCH (19:32)
[2024-11-15] MEDS: aspirin 81mg, enteric-coated 1 TAB TABLET.DR PO SCH (20:45)
[2024-11-16] VITALS (25 sets, daily range): BP systolic 89–146; BP diastolic 47–74; PULSE 79–100; RESP 10–23; O2SAT 91–96
[2024-11-16 02:52] LABS: MEAN PLATELET VOLUME 9.3 FL (7.4-10.4); RED CELL DISTRIBUTION WIDTH 16.0 % (11.5-14.5)
[2024-11-16 03:08] LABS: CREATININE 1.00 MG/DL (0.60-1.10); TOTAL CARBON DIOXIDE 26.1 MMOL/L (24-32); eCRCL 79 ML/MIN; eGFR 77 ML/MIN
[2024-11-16 09:20] LABS: PHOSPHORUS 2.1 MG/DL (2.3-4.5)
[2024-11-16] MEDS ORDERED: ATOR20TA PO (10:48)
[2024-11-16] MEDS: acetaminophen 1,000mg/100ml IV 100 ML IV ONE (12:41)
--- NOTE | 2024-11-16 13:00 | PROGRESS NOTE ---
Progress Note Cardiology Providers to CC ~ Subjective Subjective Patient seen and examined this morning. Patient extubated conscious alert asking ice chips. His friend at bedside. Objective Result Diagram: 11/16/2422411/16/24224 Objective General: Normal body habitus, no acute distress, HEENT: Sclerae clear, PERRL, gums without lesions or bleeding, oropharynx clear without erythema or exudate. Neck: Supple without enlargement of the thyroid, or lymphadenopathy, Chest: Normal size and shape, no tenderness, nonlabored breathing, Breath sounds diminished bibasilarly. Heart: Regular in rate and rhythm, S1 and S2 normal, no S3-S4 or murmurs. Abdomen: Tenderness present. ? Bowel sounds Extremities: No edema cyanosis or clubbing. Problem\Assessment\Plan Additional Plan 1. 59-year-old male with Perforated peptic ulcer: Status post surgery on 11/14/2024. About a week ago patient had laparoscopic cholecystectomy by 2.: Sepsis: Blood culture growing budding yeast,? Fungemia. Patient started on IV antifungal agent by Dr. ramirez. 2. Cardiac tamponade status post pericardial centesis on 11/14/2024. 1 L drained. No significant output on the pericardial drain. 3. CAD status post coronary artery stenting: Continue aspirin and Plavix. 4.: Diabetes, hypertension, hyperlipidemia: Recommend risk factor modification to keep his LDL less than 55 mg %, hemoglobin A1c less than 7% and systolic blood pressure less than 130 mm of mercury. 5. COPD with continued smoking: Counseled on smoking cessation 6. Other comorbidities include: Anemia, obesity. VALENTÍN HOLLOWAY MD Nov 16, 2024 13:00
--- NOTE | 2024-11-16 13:19 | PROGRESS NOTE ---
Progress Note ID Providers to CC ~ Progress Note Progress Note: extubated/vss/abd-dressing intact/drain output noted/labs noted a/p 1. s/p repair perf ulcer-doing well/cont protonix and antibx RADHA HERNANDEZ MD Nov 16, 2024 13:19
--- NOTE | 2024-11-16 13:56 | CONSULTATION ---
DATE OF CONSULTATION: 11/14/2024 DICTATING PHYSICIAN: KATE Cabral MD CARDIOLOGY CONSULTATION PRIMARY PHYSICIAN: [facility]. CONTACT CENTER SPECIALIST: KATE Cabral MD. REQUESTING PHYSICIAN: Cruzito Mcfarland MD IDENTIFICATION: A 59-year-old male with a large pericardial effusion with near tamponade. HISTORY OF PRESENT ILLNESS: The patient is a 59-year-old male with history of CAD with a prior history of stenting, hypertension, hyperlipidemia, diabetes, who was hospitalized here from 11/03/2024 to 11/07/2024. He was transferred at that time from [facility] with gallstone cholecystitis and he was evaluated. The patient underwent laparoscopic cholecystectomy and the patient had robotic cholecystectomy. His echocardiogram back then showed EF of 60%, and then apparently, moderate to large pericardial effusion was noted with right atrial collapse. After discharge, on the second and third day, the patient started having abdominal pain, right shoulder pain, did not feel good. Yesterday, his symptoms got worse. He did have his [id number]'s cremation and celebration of life and then he got worse, went to the [facility] and was transferred from there. He was evaluated. Dr. Mcfarland was consulted from Surgery; however, his pericardial effusion had become large with evidence of tamponade with tachycardia, hypotension, and Dr. Mcfarland requested pericardial drain put in before and hence cardiology consult was done. Generally, the patient ambulates around the house, reports dyspnea while going uphill and rates dyspnea 2-3. PAST MEDICAL HISTORY: * CAD. History of coronary stenting. The patient was hospitalized on 06/01/2024 with a STEMI, underwent cardiac catheterization by Dr. GONZALEZ. EF of 50%-60% at that time. LVEF 20 mmHg. No gradient across the aortic valve. LAD 10%-20% narrowing. OM1 98% narrowing. Successfully angioplastied and stented with 2.25 x 15 Resolute [place] stent, postdilated to 2.5 mm. Dominant circumflex artery, proximal RCA 70% successfully angioplastied, was angioplastied with 2/12 mm balloon. * COPD with continued smoking. He says smokes 2 packs per day. * Hypertension. * Diabetes. * History of CVA. PAST SURGICAL HISTORY: Inguinal hernia repair and recent lap cholecystectomy. FAMILY HISTORY: Father is 78 years old. Mother is 76 years old. Both have cardiac disease. The patient smokes 2 packs per day. No history of alcohol or drug. No history of substance abuse. He is , lives with his . He has a [employer]. Lives in [facility]. MEDICATIONS: Include aspirin 81 mg p.o. q. day, Plavix 75 mg p.o. q. day, atorvastatin 40 mg p.o. q. day, glipizide, lisinopril, metoprolol, nicotine patch. REVIEW OF SYMPTOMS: HEENT: Wears reading glasses, mild hearing impairment. RESPIRATORY: Exertional shortness of breath. MUSCULOSKELETAL: Arthralgias. ENGLISH HORN PLAYER: No stroke, TIA. History of seizure present. SKIN: None. ENDOCRINE: None. PHYSICAL EXAMINATION: VITAL SIGNS: The patient is mildly febrile at 101.6, pulse 78, blood pressure 125/87. NECK: Mild JVD present. Carotids are equally well felt. CARDIAC: Regular in rate and rhythm. S1, S2 normal. No S3, S4. LUNGS: Decreased breath sounds, bibasilar. ABDOMEN: Tender. Recent surgical wound present. He has a ASYA drain with purulent drainage. EXTREMITIES: 1+ edema. EKG: Sinus tachycardia with nonspecific ST-T changes. LABORATORIES: WBC 14.9, hemoglobin 14.1, hematocrit 42.4, platelet count 223. Sodium 138, potassium 4.8, chloride 102, carbon dioxide 26, BUN 20, creatinine 1.52. ASSESSMENT AND PLAN: * This is a 59-year-old male with laparoscopic cholecystectomy with ASYA drain, persistent infection. He has been evaluated for repeat surgery today. Management per Dr. Mcfarland. * Large pericardial effusion with near tamponade. Patient is hypotensive with tachycardia. Risks, benefits, and alternative options discussed. The patient agrees to have a pericardial drainage catheter put in. * Diabetes, hypertension, hyperlipidemia. Extensively counseled on coronary risk factor modification to keep hemoglobin A1c less than 7%, LDL less than 55 mg, systolic blood pressure less than 130 mmHg. * CAD, status post OM stent and RCA angioplasty. Continue aspirin and Plavix. * COPD with continued smoking 2 packs per day. Counseled on smoking cessation. Other comorbidities are obesity, diverticulosis. KATE Cabral MD TID: [id number] RECEIPT: [id number] TONEY/RANJIT CALDERON
--- NOTE | 2024-11-16 14:02 | CONSULTATION ---
DATE OF CONSULTATION: 11/14/2024 DICTATING PHYSICIAN: Cruzito Mcfarland MD REASON FOR CONSULTATION: Evaluation of abdominal pain. HISTORY OF PRESENT ILLNESS: The patient is a 59-year-old male, recently hospitalized with gallstone pancreatitis and underwent robotic cholecystectomy on 11/04/2024. The patient was ultimately discharged on 11/07/2024. The patient had a pericardial effusion documented during that admission. The patient was seen by Cardiology and no intervention needed at that point in time. The patient developed recurrent abdominal discomfort over the course of the past couple of days and presented to the ER for evaluation. A CAT scan revealed a large amount of free air with an enlarging pericardial effusion. Surgical evaluation now requested. On further questioning, the patient complains of severe abdominal discomfort. PAST MEDICAL HISTORY: Notable for coronary artery disease, previous coronary stent, history of pericardial effusion, rheumatoid arthritis, diabetes mellitus, cerebrovascular disease, and hypertension. PAST SURGICAL HISTORY: Includes recent robotic cholecystectomy. HOME MEDICATIONS: Include aspirin, atorvastatin, Toprol, Habitrol patch, Plavix, Zestril, and glipizide. ALLERGIES: No medical allergies. SOCIAL HISTORY: History of tobacco and alcohol use. REVIEW OF SYSTEMS: See H and P. PHYSICAL EXAMINATION: GENERAL: Well-nourished male, in moderate distress. VITAL SIGNS: Include a heart rate of 121, blood pressure 129/87, temperature 101. HEART: Regular rate and rhythm. LUNGS: Clear to auscultation. ABDOMEN: Diffuse tenderness with acute abdomen. EXTREMITIES: Unremarkable. LABORATORY DATA: Labs include a WBC of 14, hematocrit of 42, platelet count is 223. Chemistries; lactic acid is 5.1. LFTs essentially unremarkable. Lipase 22. IMAGING STUDIES: CT of the abdomen reveals a large pericardial effusion, large amount of free air. IMPRESSION: * Enlarging pericardial effusion, question etiology. * Perforated viscus. * Coronary artery disease, status post stent placement. * History of diabetes. * History of hypertension. RECOMMENDATIONS: * Cardiology consult regarding pericardial drain. * Laparotomy. * Continue IV antibiotics. Cruzito Mcfarland MD TID: [id number] RECEIPT: [id number] FLAKITO/CATHLEEN/NELLY
--- NOTE | 2024-11-16 16:30 | OPERATIVE REPORT ---
DATE OF SURGERY: 11/14/2024 DICTATING PHYSICIAN: Cruzito Mcfarland MD PREOPERATIVE DIAGNOSIS: Acute abdomen. POSTOPERATIVE DIAGNOSIS: Acute abdomen. PROCEDURES PERFORMED: * Exploratory laparotomy. * Repair of perforated pyloric channel ulcer. SURGEON: Cruzito Mcfarland MD EVENT DESIGNER: None. ANESTHESIA: General/Dr. Khoury. DRAINS: Doc x 1. INDICATIONS FOR OPERATION: The patient is a 59-year-old male with a recent robotic cholecystectomy for gallstone pancreatitis and a known pericardial effusion, presented to the ER with complaints of recurrent abdominal discomfort. CAT scan revealed free air in the abdominal cavity. The patient had a large pericardial effusion and consult was obtained and the patient was taken to the cardiac earth science laboratory technician for drain placement. The patient was taken to the operating room for repair of perforated viscus. INTRAOPERATIVE FINDINGS: The patient had a pericardial catheter in the stomach, which was easily removed. Second part of the catheter went through the diaphragm into the pericardial space. The patient had a perforated pyloric channel ulcer contamination. Cultures were obtained. DESCRIPTION OF PROCEDURE: The patient was placed supine on the operating table. After induction of general anesthesia and placement of endotracheal tube, abdomen was prepped and draped. Abdomen was entered through midline incision. Cultures were obtained the abdominal cavity. Abdomen was then explored and found to have a perforated pyloric channel ulcer. Pericardial drain was found to be in the stomach, which was removed without difficulty. air with no evidence of leak at the catheter entrance site. The patient had some bleeding from the splenic hilum and it was easily controlled. mobilized off the transverse colon. Omental flap was created. Perforated pyloric channels were easily identified. Sutures of 0 silk were used to close the defect. Omentum was then secured over the repair using the tails of the sutures. Abdomen was then copiously irrigated with large amount of antibiotic-containing solution. Hemostasis was found to be adequate. Drain was placed in the left upper quadrant, was confirmed. Rectal fascia closed with running suture of looped PDS. Skin was closed with clips, neil placed. Dressing applied. The patient transferred to ICU in critical condition. Cruzito Mcfarland MD TID: [id number] RECEIPT: [id number] KB/SYED/NELLY
--- NOTE | 2024-11-16 18:57 | PROGRESS NOTE- Residence ---
Progress Note - Resident Providers to CC Resident Creating Document: JESS GUZMAN RAYMUNDOJORGE LUIS, RES ~ Antibiotic Timeout Antibiotic Ordered?: Yes Subjective The patient was seen and examined at bedside today. He underwent extubation this morning and is currently on 4 L of oxygen through nasal cannula. Objective Vital Signs Date Time Temp Pulse Resp B/P (MAP) Pulse Ox O2 Delivery O2 Flow Rate FiO2 11/16/24 18:00 99.5 91 16 113/56 (75) 93 Nasal Cannula 4.0 11/16/24 03:55 36 Result Diagram: 11/16/2422411/16/24224 Adult male, not in acute distress, on 4 L oxygen through nasal cannula Head: Normocephalic with an atraumatic Eyes: Pupils- 3mm, reacting to light, conjunctiva- anicteric Nose and throat: No polyps, septum- normal, no mucosal ulcers Neck: Supple, no lymphadenopathy, no carotid bruit Respiratory: Bilateral diminished breath sounds heard Cardiac: Tachycardia, S1-S2 heard, rhythm regular, no gallop/murmur Abdomen: non distended, diffuse tenderness in the abdomen, no organomegaly, bowel sounds - heard Extremities: no clubbing, no pedal edema, no deformities, peripheral pulses - 2+ Skin: warm and dry, no rash, no purpura Neuro: No focal deficit, gross cranial nerve exam - normal Plan Plan Acute hypoxemic respiratory failure Sepsis - fungemia Perforated viscus s/p ex lap with pyloric channel repair Status post cholecystectomy, 11/04/2024 Patient is currently in the ICU being managed by Dr. Mcfarland. Blood cultures positive for yeast. Started the patient on micafungin IV. Also on IV Zosyn. WBC 14.4 today. Procalcitonin 7.51. Large pericardial effusion S/p pericardiocentesis Patient underwent pericardiocentesis on 11/14/2024. 1 L of fluid drained. Drain in place. Dr. Cabral is following. CAD s/p coronary artery stenting Continue aspirin Plavix. Dr. Cabral on board. Diabetes HB A1c 8.5. Patient currently on medium dose supplemental insulin protocol. Continue monitor sugars and consider adding Lantus and fixed dose Humalog. Hypertension Current blood pressures soft. Hold all antihypertensives. Code Status: Full code Analgesia/Sedation: Dilaudid Lines/Tubes: PIV GI Prophylaxis: Protonix Prognosis: Guarded Disposition: Continue care in the ICU. We will assume care of the patient after she is downgraded to the floors. Jess Guzman MD Internal Medicine Resident PGY-1 Date of Service: Nov 16, 2024 Billing Provider: SABRINA HULL MD,JESS PRATHER, RES Nov 16, 2024 18:57
[2024-11-16] MEDS: VANCOmycin 1250MG/NS 250ml Bag 250 ML IV SCH (19:12)
--- NOTE | 2024-11-16 19:53 | CONSULTATION ---
DATE OF CONSULTATION: 11/16/2024 DICTATING PHYSICIAN: Vince Mallory MD REQUESTING PHYSICIAN: I am seeing the patient at the request of Dr. Mcfarland for evaluation of candidemia. HISTORY OF PRESENT ILLNESS: The patient is a 59-year-old male from [place] who has had a rough month since he required admission here a couple of weeks ago. He presented to this hospital on 11/03, with abdominal pain. He was felt to have gallstone pancreatitis with cholecystitis and he eventually underwent robotic cholecystectomy. Lipase was mildly elevated at that time. I believe he was discharged from the hospital on 11/07 after a 4-day hospitalization. He then returned to this hospital one week later on the once again with severe abdominal pain. He may have been transferred from [facility] in [place]. I believe he still had a drain in place from his initial surgery. He had a repeat CT scan that showed evidence of pneumoperitoneum along with a large pericardial effusion. He went back to the operating room with Dr. Mcfarland. He was found to have a perforated pyloric channel ulcer that required repair. He also had a pericardial drain placed. He had an echocardiogram before drainage that showed evidence of cardiac tamponade physiology after removal of 1 liter from the pericardial space. There was no further compromise of hemodynamic status. He is now stable in the postoperative setting in the ICU. He is still having some fever. White blood cell count is mildly elevated. He is currently receiving vancomycin and Zosyn. I was contacted yesterday by Dr. Mcfarland given that one of his blood cultures was positive for yeast. Micafungin was added at that time. He is asking for something to eat. His breathing is stable, but he is requiring 4 liters. I do not have Dr. Mcfarland's full operative note yet from yesterday. PAST MEDICAL HISTORY: * Recent gallstone pancreatitis and cholecystitis. * Newly diagnosed perforated pyloric channel ulcer. * Coronary artery disease with a history of STEMI. He has required percutaneous coronary intervention in the past with stent placement. * Hypertension. * Dyslipidemia. * Obstructive sleep apnea. * Diabetes mellitus type 2. PAST SURGICAL HISTORY: * Robotic cholecystectomy. * Exploratory laparotomy with repair of pyloric channel ulcer. ALLERGIES: None. MEDICATIONS: * Zosyn. * Vancomycin. * Micafungin. * Plavix. * Aspirin. * Pantoprazole infusion. * Humalog. * Colace. FAMILY HISTORY: Noncontributory. SOCIAL HISTORY: He lives down in [place]. He is . He has a significant smoking history. PHYSICAL EXAMINATION: VITAL SIGNS: His current temperature is 100.6. Vital signs are stable and he is currently on 4 liters. GENERAL: He is a pleasant middle-aged male lying in bed, looking stable. HEENT: Sclerae anicteric. Mouth is clear. NECK: He has a right internal jugular central venous catheter in place. LUNGS: Clear to auscultation anteriorly. HEART: Regular rate and rhythm. ABDOMEN: Extensively bandaged. He has one ASYA drain in place along with his pericardial drain. EXTREMITIES: He does not have significant edema. He has a right radial arterial line. LABORATORY DATA: His white blood cell count is 14,400; hemoglobin 9.8, platelets 176,000. His creatinine is 1.0. Procalcitonin 7.5. Blood culture was positive for yeast on the . This was only present in 1 of 4 bottles. It appears that he had cultures taken from peritoneal, pleural and pericardial fluid. The peritoneal and pleural fluid samples are growing cathie albicans. Pericardial fluid does not have any growth at this time. CT chest has been reviewed. He currently demonstrates small bilateral effusions with adjacent atelectasis. Pericardial effusion has been evacuated. IMPRESSION: * Perforated pyloric channel ulcer, status post exploratory laparotomy with repair. * Recent gallstone pancreatitis and cholecystitis, status post robotic cholecystectomy. * Large pericardial effusion, requiring drainage due to cardiac tamponade physiology. * Possible empyema due to cathie. * Disseminated candidemia with positive blood culture. * Coronary artery disease with a history of myocardial infarction and percutaneous coronary intervention. * Diabetes mellitus type 2 with a hemoglobin A1c of 8.5%. PLAN: Zosyn is certainly reasonable for now. He is receiving Micafungin and I am going to increase his dose to 150 mg daily. He may need an extended course of antifungal treatment. Vancomycin is also reasonable until the dust settles a little bit more, especially since he is still febrile. Lines may need to be changed soon. Blood cultures will be repeated. He just had an echocardiogram. Vision will be followed closely. I will await the official operative note from yesterday and try to touch base with Dr. Mcfarland. I will continue to follow the patient closely and I thank you for allowing me to participate in his care. 80 mins time spent [id number], review of medical record including labs/cultures/imaging, discussion with Dr. Mcfarland and Dr. Cabral, orders and documentation. Vince Mallory MD TID: [id number] RECEIPT: [id number] NICHOLAS/JOSSIE CALDERON
[2024-11-17] VITALS (14 sets, daily range): BP systolic 117–138; BP diastolic 57–72; PULSE 80–100; RESP 13–28; TEMP 98.1–98.8; O2SAT 90–97
[2024-11-17 02:04] LABS: MEAN PLATELET VOLUME 9.5 FL (7.4-10.4); RED CELL DISTRIBUTION WIDTH 15.9 % (11.5-14.5)
[2024-11-17 02:22] LABS: CREATININE 1.02 MG/DL (0.60-1.10); PHOSPHORUS 1.9 MG/DL (2.3-4.5); TOTAL CARBON DIOXIDE 27.0 MMOL/L (24-32); eCRCL 77 ML/MIN; eGFR 75 ML/MIN
--- NOTE | 2024-11-17 07:44 | PROGRESS NOTE ---
Progress Note Dictate Providers to CC ~ Subjective Subjective: Fever last night. Still with AP. On pantoprazole gtt. Oxygenation stable. Objective Objective: Tm 102.2 on 4L GENERAL: He is a pleasant middle-aged male lying in bed, looking stable. NECK: He has a right internal jugular central venous catheter in place. LUNGS: Clear to auscultation anteriorly. HEART: Regular rate and rhythm. ABDOMEN: Extensively bandaged. He has one ASYA drain in place along with his pericardial drain. EXTREMITIES: He does not have significant edema. He has a right radial arterial line. Lab Results: 11/17/2413911/17/24139 Lab comments: 11/16 Blood cx NGTD Problem\Assessment\Plan Additional Plan 1. Perforated pyloric channel ulcer s/p exploratory laparotomy with repair. 2. Recent gallstone pancreatitis and cholecystitis s/p robotic cholecystectomy. 3. Large pericardial effusion, requiring drainage due to cardiac tamponade physiology. 4. Disseminated candidemia with positive blood culture, related to perforated ulcer. 5. Diabetes mellitus type 2 with a hemoglobin A1c of 8.5%. Continue micafungin 150mg IV daily Continue Zosyn and Vanco for now F/U blood cultures Repeat PCT May need to follow with serial echo once pericardial drain removed (may have been contamination of pericardial space with original drain) D/W RENZO Gutierrez MD Nov 17, 2024 07:44
[2024-11-17] MEDS: MESSAGE TO NURSING PO SCH (08:00)
--- NOTE | 2024-11-17 08:47 | PROGRESS NOTE ---
Progress Note Cardiology Providers to CC ~ Subjective Subjective Patient seen and examined this morning. Overall he is getting better. His pericardial drain removed outside after confirming there was no significant pericardial effusion today. Objective Result Diagram: 11/17/2413911/17/24139 Objective General: Normal body habitus, no acute distress, HEENT: Sclerae clear, PERRL, gums without lesions or bleeding, oropharynx clear without erythema or exudate. Neck: Supple without enlargement of the thyroid, or lymphadenopathy, Chest: Normal size and shape, no tenderness, nonlabored breathing, Breath sounds clear to auscultation. Heart: Regular in rate and rhythm, S1 and S2 normal, no S3-S4 or murmurs. Abdomen: Soft, nontender, no organomegaly, bowel sounds present. Extremities: No edema cyanosis or clubbing. Problem\Assessment\Plan Additional Plan 1. 59-year-old male with Perforated peptic ulcer: Status post surgery on 11/14/2024. About a week ago patient had laparoscopic cholecystectomy by patient being transferred to PCU on 11/17/2024 2.: Sepsis: Blood culture growing budding yeast,? Fungemia. Patient started on IV antifungal agent by Dr. ramirez. 2. Cardiac tamponade status post pericardial centesis on 11/14/2024. 1 L drained. No significant output on the pericardial drain. Pericardial drain removed on 11/17/2024 3. CAD status post coronary artery stenting: Continue aspirin and Plavix. 4.: Diabetes, hypertension, hyperlipidemia: Recommend risk factor modification to keep his LDL less than 55 mg %, hemoglobin A1c less than 7% and systolic blood pressure less than 130 mm of mercury. 5. COPD with continued smoking: Counseled on smoking cessation 6. Other comorbidities include: Anemia, obesity. VALENTÍN HOLLOWAY MD Nov 17, 2024 08:47
[2024-11-17] MEDS: micafungin inj 150 MG in normal saline 100ml IV soln 100 ML IV SCH (08:52)
[2024-11-17] MEDS: PERFLUTREN PROTEIN-A MICROSPHR (Optison) 0.22 MG/ML 3ML VIAL IV ONE (09:37)
[2024-11-17] MEDS: acetaminophen 1,000mg/100ml IV 100 ML IV PRN (12:31)
--- NOTE | 2024-11-17 14:35 | PROGRESS NOTE- Residence ---
Progress Note - Resident Providers to CC Resident Creating Document: JORDAN NICHOLS RES CC: SABRINA HULL MD ~ Central Line/PICC still needed: Yes Central Line/PICC Necessity: Prolonged IV access req [place]-Non Protocol [place] Indications Met/Not Met: F/C Indications Met Antibiotic Timeout Antibiotic Ordered?: Yes If Yes, Indications: fungemia Subjective Patient is seen this afternoon. He has T-max was 102 since yesterday. Currently afebrile. He denies any pain at present. Pericardial drain was removed by Dr. Cabral, no complaints of shortness of Breath. Currently he is NPO with only ice and chips. Objective Vital Signs Date Time Temp Pulse Resp B/P (MAP) Pulse Ox O2 Delivery O2 Flow Rate FiO2 11/17/24 14:15 15 11/17/24 14:04 88 11/17/24 10:00 101.1 138/72 (94) 95 Nasal Cannula 3.0 11/16/24 03:55 36 Result Diagram: 11/17/24 0140 11/17/24 0140 General: Elderly male, AAO x4, not in apparent distress Head: Normocephalic with an atraumatic Eyes: Pupils- 3mm, reacting to light, conjunctiva- anicteric Nose and throat: No polyps, septum- normal, no mucosal ulcers Neck: Supple, no lymphadenopathy, no carotid bruit, right IJ CVC present Respiratory: No use of accessory muscles of respiration, Bilateral normal vesiscular breath sounds heard. No wheeze, rhochi or creps Cardiac: S1-S2 heard, rythm regular, no gallop/murmur, pericardial drain removed Abdomen: Midline incision with pablito present, ASYA drain snf non distended, no tenderness, no organomegaly, Extremities: Bilateral fingers clubbing, 1+ pedal edema Skin: warm and dry, no rash, no purpura Neuro: No focal deficit, gross cranial nerve exam- normal Counseling Services Smoking & Tobacco Cessation: 3-10 Minutes (Discussed with patient about smoking cessation he is smoking two packs of cigarettes a day for the past 40 years he has 80 pack years. Patient was made aware of the risk of smoking including lung cancer, CAD, delayed wound healing and patient is aware of this this however he has no plans to quit smoking at this time.) Assessment Assessment 59-year-old male with history of type 2 DM with A1c of 8.5, recent gallstone pancreatitis/cholecystitis s/p robotic cholecystectomy, CAD s/p stenting in June 2024, smoker, came as a transfer from [facility] for for abdominal pain on 11/14. CT abdomen revealed pneumoperitoneum with large pericardial effusion. He was taken to OR by Dr. Mcfarland on 11/14 and had undergone status post exploratory laparotomy with repair for perforated pyloric channel ulcer. Had undergone pericardiocentesis with placement of pericardial drain and drainage of 1 L of pericardial fluid on 11/14, procedure done by Dr. Cabral He remained in the ICU and was extubated on 11/16. He is planned to be transferred to the PCU on 11/17 Plan Plan S/p exploratory laparotomy with repair for perforated pyloric ulcer, done on 11/14 s/p cholecystectomy for gallstone pancreatitis on 11/04 -continue Protonix gtt -currently patient is NPO only receiving ice and chips -passed gas but no bowel movement yet -nutrition to be resumed based on Dr. Bradley's recommendation -pain management with Dilaudid Disseminated candidemia -cultures from 11/14 positive for Jane and pleural fluid and peritoneal fluid cultures positive for Jane -Repeat blood cultures from 11/16 are negative -WBC came down to 10 from 14 and procalcitonin came down to 3.3 from 7 -Dr. Mallory, ID consulted and patient is currently on micafungin 150 mg once daily -continue Zosyn and vanco as per ID recs -Tylenol p.r.n. for fever Large pericardial effusion S/p pericardiocentesis Patient underwent pericardiocentesis on 11/14/2024, by Dr. Cabral cardiology 1 L of fluid drained. Pericardial drain removed on 11/17 TSH is normal, unsure what is the reason for pericardial effusion CAD s/p coronary artery stenting in June 2024 Continue DAPT with aspirin and Plavix We will add statin from tomorrow Follow up on lipid panel Type 2 Diabetes mellitus with A1c of 8.5 -currently on medium dose supplemental insulin, however blood pressures are uncontrolled -will add Lantus 8 U and adjust the dose based on the glucose levels -home glipizide on hold Hypertension -resume metoprolol succinate 25 mg once daily -home lisinopril on hold Code Status: Full code Line/tube: Right IJ CVC, [place], ASYA drain DVT prophylaxis: SCD Nutrition: ice and chips PT: yes Prognosis: Guarded Disposition: Continue care in PCU, Jordan Nichols MD PGY-3 resident Date of Service: Nov 17, 2024 Billing Provider: SABRINA HULL MD,JORDAN, RES Nov 17, 2024 14:34
--- NOTE | 2024-11-17 17:39 | CARDIOLOGY REPORT ---
APPROVED REPORT EXAM: Limited 2D, Doppler, and color-flow Echocardiogram. Patient Location: 2006 Blood Pressure: 134/64 mmHg Heart Rate: 90 bpm Rhythm: SINUS Indications EVALUATE PERICARDIAL EFFUSION PERICARDIOCENTESIS (1000 ccs REMOVED) 11/14/24 CAD, STENTS X2 05/2024 Sprayer Insecticide: Akbar Magallanes MD / Consulting Sprayer Insecticide: Ned Cabral MD [facility]: [facility] (EF 60%, 1000 ccs pericardial fluid removed, mod AI) Aortic Valve AI P 1/2 Time 260 ms LEFT VENTRICLE Normal LV size and wall thickness. Overall systolic function is normal. Overall LVEF is 55%. RIGHT VENTRICLE RV appears mildly dilated with normal systolic function. ATRIA LA appears mildly dilated. AORTIC VALVE Trileaflet AV appears mildly sclerotic without stenosis. Moderate to Severe insufficiency, increased from prior exams. Jet height to LVOT ratio of 0.78. MITRAL VALVE Mild MV annular calcification without stenosis. Trace regurgitation. TRICUSPID VALVE TV appears structurally normal with trace regurgitation. PERICARDIUM No significant pericardial effusion seen No effusion s/p pericardiocentesis. Other Information Study Quality: Adequate Conclusion Overall LVEF is 55%. Normal LV size and wall thickness. Overall systolic function is normal. RV appears mildly dilated with normal systolic function. Trileaflet AV appears mildly sclerotic without stenosis. Moderate to Severe insufficiency, increased from prior exams. Jet height to LVOT ratio of 0.78. Mild MV annular calcification without stenosis. Trace regurgitation. TV appears structurally normal with trace regurgitation. No significant pericardial effusion seen No effusion s/p pericardiocentesis.
[2024-11-17] MEDS ORDERED: HYDROmorph/NS 0.2 mg/ml PCA 100 ML IV SCH (19:00)
[2024-11-17] MEDS: HYDROmorph/NS 0.2 mg/ml PCA 100 ML IV SCH (19:15)
--- NOTE | 2024-11-17 19:26 | PROGRESS NOTE ---
Progress Note ID Providers to CC ~ Progress Note Progress Note: complains of pain/vss/abd-drain output noted/labs noted a/p 1. s/p repair perf ulcer-doing well/ct abd-r/o leak-cont antbix RADHA HERNANDEZ MD Nov 17, 2024 19:26
[2024-11-17] MEDS: diatr meglu/diatrizoate 30ml oral sol.-(3 dose) bottle PO SCH (23:00)
[2024-11-17] MEDS: insulin glargine (Lantus) pen - multi-dose SQ SCH (23:06)
[2024-11-18] VITALS (10 sets, daily range): BP systolic 116–144; BP diastolic 60–77; PULSE 93–109; RESP 12–25; TEMP 97.3–100.1; O2SAT 90–99
[2024-11-18] MEDS: VANCOMYCIN LEVEL IV ONE (07:06)
[2024-11-18 07:13] LABS: MEAN PLATELET VOLUME 9.4 FL (7.4-10.4); RED CELL DISTRIBUTION WIDTH 15.8 % (11.5-14.5)
[2024-11-18 07:25] LABS: CREATININE 0.92 MG/DL (0.60-1.10); PHOSPHORUS 2.1 MG/DL (2.3-4.5); TOTAL CARBON DIOXIDE 27.2 MMOL/L (24-32); eCRCL 86 ML/MIN; eGFR 85 ML/MIN
[2024-11-18] MEDS ORDERED: potassium Cl 40MEQ/1/2NS 520ml 520 ML IV PRN (08:50)
[2024-11-18] MEDS ORDERED: magnesium sulf-water 4G/100mL 100 ML IV PRN (08:50)
[2024-11-18] MEDS ORDERED: magnesium sulf-water 2g/50mL 50 ML IV PRN (08:50)
[2024-11-18] MEDS ORDERED: magnesium Cl slow-release 64mg tablet PO PRN (08:50)
[2024-11-18] MEDS ORDERED: potassium Cl 20 mEq SR tablet PO PRN (08:50)
[2024-11-18] MEDS: nicotine 21mg patch - 24 hr TD SCH (09:06)
[2024-11-18] MEDS: metoprolol succinate 25mg (24-HOUR) SR. Tablet PO SCH (09:06)
--- NOTE | 2024-11-18 10:05 | PROGRESS NOTE ---
Progress Note Dictate Providers to CC ~ Subjective Subjective: He did develop some shortness of breath this morning. He states that he is doing okay right now. He remains on a pantoprazole infusion. 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 Pericardial drain has been removed. Objective Objective: Tm 101 yesterday morning, now on oxygen via facemask GENERAL: He is a pleasant middle-aged male sitting up in bed, looking stable. NECK: He has a right internal jugular central venous catheter in place. LUNGS: Clear to auscultation anteriorly. HEART: Regular rate and rhythm. ABDOMEN: Extensively bandaged. He has one ASYA drain in place. EXTREMITIES: He does not have significant edema. Lab Results: 11/18/24 0650 11/18/24 0650 Lab comments: Both Jane albicans and Jane glabrata have been identified (Jane glabrata in blood) 11/16 blood cultures no growth to date Radiology comments: 11/17 echo with no significant pericardial effusion Problem\Assessment\Plan Additional Plan 1. Perforated pyloric channel ulcer s/p exploratory laparotomy with repair. 2. Recent gallstone pancreatitis and cholecystitis s/p robotic cholecystectomy. 3. Large pericardial effusion, requiring drainage due to cardiac tamponade physiology - drain now removed 4. Disseminated candidemia with positive blood culture, related to perforated ulcer. 5. Diabetes mellitus type 2 with a hemoglobin A1c of 8.5%. Continue micafungin 150mg IV daily Continue Zosyn Consider stopping vancomycin soon F/U blood cultures Follow PCT Follow with serial echo once pericardial drain removed (may have been contamination of pericardial space with original drain) ERNZO OSMAN MD Nov 18, 2024 10:05
--- NOTE | 2024-11-18 10:32 | RADIOLOGY REPORT ---
CHEST RADIOGRAPH Indication: sob Technique: Single frontal view of the chest was obtained Comparison: DI CHEST,SINGLE VIEW on DOS: 11/15/24, DI CHEST,SINGLE VIEW on DOS: 11/14/24, DI CHEST,SING LE VIEW on DOS: 11/14/24, DI CHEST,SINGLE VIEW on DOS: 11/05/24, DI CHEST,SINGLE VIEW on DOS: 11/04/24, DI CHEST,SINGLE VIEW on DOS: 11/15/24 FINDINGS: Lines and Tubes: Lines and tubes removed. Lungs: Pulmonary vascular congestion Pleura: Small bilateral pleural effusions No pneumothorax. Cardiomediastinal contours: Unremarkable Bones: Unremarkable IMPRESSION: Lines and tubes removed. No significant interval change.
[2024-11-18] MEDS: potassium Cl 20 mEq SR tablet PO PRN (11:42)
--- NOTE | 2024-11-18 12:57 | RADIOLOGY REPORT ---
CLINICAL INFORMATION: Question leak. Recent abdominal surgery. Pneumoperitoneum. TECHNIQUE: Axial CT images of the abdomen and pelvis were obtained without IV contrast. Coronal and s agittal reformatted images were obtained, reviewed, and stored. Evaluation of the parenchymal organs is limited without IV contrast. Oral Gastroview was administered prior to the examination. All CT sca ns at this medical facility are performed using dose modulation techniques as appropriate to a perfor med exam including the following: Automated exposure control was utilized; adjustment of the MA and/o r KV according to patient size; and use of iterative reconstruction technique. CTDIvol = 34.51 mGy DLP = 1956.57 mGy-cm COMPARISON: CT CT ABDOMEN PELVIS W/ IV CONTRAST on DOS: 11/14/24 FINDINGS: Lung bases: Small to moderate bilateral pleural effusions with overlying atelectasis and consolidatio n. Additional areas of ground-glass attenuation and ill-defined airspace opacities also noted in the lung bases. Significant interval decrease in size in the previously seen pericardial effusion with pe ricardial drain in place. Liver: Nodular contour of the liver, may be seen with cirrhosis in the appropriate clinical setting. Small to moderate amount of perihepatic fluid. Biliary: Cholecystectomy. Spleen: Pericardial drain courses adjacent to the spleen and into the left lateral aspect of the lowe r abdomen extending to the left lower ventral abdominal wall. Mild adjacent soft tissue stranding. Pancreas: Moderate atrophy. Adrenal glands: Unremarkable. No mass. Kidneys: No hydronephrosis. No renal or ureteral calculi. Aorta/Vascular: Moderate atherosclerotic calcification. No abdominal aortic aneurysm. Retroperitoneum: No mass or lymphadenopathy. Bowel/mesentery: No small bowel obstruction. Small amount of free fluid in the pelvis adjacent to the liver, increased compared to the prior exam. There is small volume pneumoperitoneum in the upper abd omen, appears decreased compared to the prior exam. No extraluminal GI contrast is visualized to sugg est bowel perforation. Appendix is visualized, measuring up to 7 mm in diameter, at the upper limits of normal, unchanged. No definite periappendiceal stranding to suggest acute appendicitis. Scattered colonic diverticula without adjacent inflammatory changes to suggest diverticulitis. Pelvic organs: Grossly unremarkable. Bladder: Trujillo catheter extends into the bladder. Abdominal wall: Moderate anasarca. Cutaneous pablito overlying the midline abdominal incision. Bones: No acute fracture or suspicious intraosseous lesion. IMPRESSION: 1. Pneumoperitoneum, decreased compared to the prior exam. No extraluminal contrast visualized to sug gest bowel perforation, although correlation with clinical findings is needed. 2. Significant interval decrease in size in the previously seen pericardial effusion with drainage ca theter in place. 3. Cirrhotic liver morphology. Small amount of free fluid adjacent to the liver and in the pelvis. 4. Moderate anasarca. 5. Small to moderate bilateral pleural effusions with overlying atelectasis and consolidation and add itional ground-glass and ill-defined airspace opacities 6. Additional findings as described above.
--- NOTE | 2024-11-18 13:28 | PROGRESS NOTE- Residence ---
Progress Note - Resident Providers to CC Resident Creating Document: JORDAN NICHOLS RES CC: JULITA VAUGHN DO ~ Central Line/PICC still needed: Yes Central Line/PICC Necessity: Prolonged IV access req Antibiotic Timeout Antibiotic Ordered?: Yes If Yes, Indications: FUngemia Subjective No acute overnight events noted. He had undergone CT abdomen today. On Dilaudid COLLATOR HAND. He had shortness of breath in the morning but got relieved and oxygen requirements went up. Chest x-ray and CT abdomen showed bilateral [id number] pleural effusions Objective Vital Signs Date Time Temp Pulse Resp B/P (MAP) Pulse Ox O2 Delivery O2 Flow Rate FiO2 11/18/24 11:43 95 18 92 Nasal Cannula* 6 44 11/18/24 11:00 97.5 116/66 (83) Result Diagram: 11/18/24 0650 11/18/24 0650 General: Elderly male, AAO x4, not in apparent distress Head: Normocephalic with an atraumatic Eyes: Pupils- 3mm, reacting to light, conjunctiva- anicteric Nose and throat: No polyps, septum- normal, no mucosal ulcers Neck: Supple, no lymphadenopathy, no carotid bruit, right IJ CVC present Respiratory: No use of accessory muscles of respiration, decreased breath sounds in the bilateral basal area Cardiac: S1-S2 heard, rythm regular, no gallop/murmur, pericardial drain removed Abdomen: Midline incision with pablito present, ASYA drain present, non distended, no tenderness, no organomegaly, sluggish bowel sounds Extremities: Bilateral fingers clubbing, 1+ pedal edema Skin: warm and dry, no rash, no purpura Neuro: No focal deficit, gross cranial nerve exam- normal Assessment Assessment 59-year-old male with history of type 2 DM with A1c of 8.5, recent gallstone pancreatitis/cholecystitis s/p robotic cholecystectomy, CAD s/p stenting in June 2024, smoker, came as a transfer from [facility] for for abdominal pain on 11/14. CT abdomen revealed pneumoperitoneum with large pericardial effusion. He was taken to OR by Dr. Mcfarland on 11/14 and had undergone status post exploratory laparotomy with repair for perforated pyloric channel ulcer. Had undergone pericardiocentesis with placement of pericardial drain and drainage of 1 L of pericardial fluid on 11/14, procedure done by Dr. Cabral He remained in the ICU and was extubated on 11/16. He is planned to be transferred to the PCU on 11/17 Plan Plan S/p exploratory laparotomy with repair for perforated pyloric ulcer, done on 11/14 s/p cholecystectomy for gallstone pancreatitis on 11/04 -CT abdomen on 11/18- no leak -dc protonix gtt and changed to Protonix 40 mg IV b.i.d. -started on full liquid diet as per Dr. 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 Mallory, ID consulted and patient is currently on micafungin 150 mg once daily -continue Zosyn and vanco as per ID recs -Tylenol p.r.n. for fever Large pericardial effusion S/p pericardiocentesis Patient underwent pericardiocentesis on 11/14/2024, by Dr. Cabral cardiology 1 L of fluid drained. Pericardial drain removed on 11/17 TSH is normal, unsure what is the reason for pericardial effusion Dr. Mallory recommended serial echo i/v/o disseminated candidemia, follow up on repeat echo tomorrow Bilateral pleural effusions Acute hypoxemic respiratory failure -DC IV fluids -start on IV Lasix 20 mg q.12 -continue oxygen via NC to maintain SpO2 94-98 CAD s/p coronary artery stenting in June 2024 Continue DAPT with aspirin and Plavix continue atorvastatin 40 mg once daily Follow up on lipid panel Type 2 Diabetes mellitus with A1c of 8.5 -currently on medium dose supplemental insulin, -continue Lantus 8 U and adjust the dose based on the glucose levels -home glipizide on hold Blood sugars are controlled Mild hypokalemia -k 3.1 -started on potassium replacement protocol Hypertension -resume metoprolol succinate 25 mg once daily -home lisinopril on hold Code Status: Full code Line/tube: Right IJ CVC, Trujillo, ASYA drain DVT prophylaxis: SCD Nutrition: full liquid diet PT: yes Prognosis: Guarded Disposition: Continue care in PCU, PT pending Jordan Nichols MD IM PGY-3 resident Date of Service: Nov 18, 2024 Billing Provider: JULITA VAUGHN DO Common Visit Codes: [id number] INP/OBS CARE(HIGH) JORDAN NICHOLS, RES Nov 18, 2024 13:28 JULITA VAUGHN DO Nov 18, 2024 17:17
--- NOTE | 2024-11-18 15:05 | PROGRESS NOTE- Residence ---
Progress Note - Resident Providers to CC Resident Creating Document: CRISTHIAN DARDEN RES CC: VALENTÍN HOLLOWAY MD ~ Antibiotic Timeout Antibiotic Ordered?: No Subjective Patient was examined at bedside. Patient does not have any drain. Patient does not have erythema, hematoma, pain or oozing of fluid from the drainage site after removal of the drain tube. Objective Vital Signs Date Time Temp Pulse Resp B/P (MAP) Pulse Ox O2 Delivery O2 Flow Rate FiO2 11/18/24 13:00 10 11/18/24 11:43 95 92 Nasal Cannula* 6 44 11/18/24 11:00 97.5 116/66 (83) Result Diagram: 11/18/24 0650 11/18/24 0650 General: Alert, awake, oriented, not in acute distress HEENT: PERRLA, no icterus, pallor, lymphadenopathy, carotid bruit Respiratory system: Bilateral vesicular breath sounds heard, no adventitious breath sounds CVS: S1-S2 heard, no murmurs/rubs/gallop, scars from the removal of pericardial drain present which are in healing stage GI: Linear surgical scar present in the center of the abdomen home Soft, nontender, no organomegaly, no guarding/rigidity, bowel sounds present Neuro: No focal neurological deficits present Extremities: Bilateral 1+ pitting edema present Skin: Warm and dry Assessment Assessment 59-year-old male with history of type 2 DM with A1c of 8.5, recent gallstone pancreatitis/cholecystitis s/p robotic cholecystectomy, CAD s/p stenting in June 2024, smoker, came as a transfer from [facility] for for abdominal pain on 11/14. CT abdomen revealed pneumoperitoneum with large pericardial effusion. He was taken to OR by Dr. Mcfarland on 11/14 and had undergone status post exploratory laparotomy with repair for perforated pyloric channel ulcer. Cardiology consulted in view of cardiac tamponade. Plan Plan S/p exploratory laparotomy with repair for perforated pyloric ulcer, done on 11/14 s/p cholecystectomy for gallstone pancreatitis on 11/04 Continue primary team management Disseminated candidemia Continue management as per ID and hospitalist team Cardiac tamponade S/p pericardiocentesis Pericardial drain removed on 11/17 CAD s/p coronary artery stenting in June 2024 Hyperlipidemia Continue DAPT with aspirin and Plavix continue atorvastatin 40 mg once daily Type 2 Diabetes mellitus with A1c of 8.5 Management as per hospitalist team Hypertension -resume metoprolol succinate 25 mg once daily -home lisinopril on hold Code Status: Full code DVT prophylaxis: SCD Nutrition: ice and chips Prognosis: Guarded Cristhian Darden MD Internal Medicine, PGY 1 Patient seen and examined with resident physician by Dr. Maria Ines CHANEY. Date of Service: Nov 18, 2024 Billing Provider: VALENTÍN HOLLOWAY MD, SIVA, RES Nov 18, 2024 15:05 VALENTÍN HOLLOWAY MD Nov 18, 2024 16:22
--- NOTE | 2024-11-18 15:24 | PROGRESS NOTE ---
Progress Note ID Providers to CC ~ Progress Note Progress Note: doing well/start clears RADHA HERNANDEZ MD Nov 18, 2024 15:24
[2024-11-18] MEDS: pantoprazole 40MG/NS 100ML BAG 100 ML IV SCH (19:44)
[2024-11-18] MEDS: VANCOMYCIN/WATER FOR INJ (PEG) 1.5GM/300 ML IVPB IV SCH (19:51)
[2024-11-18] MEDS: K and/or MAG REPLACEMENT MC SCH (20:00)
[2024-11-19] VITALS (7 sets, daily range): BP systolic 104–142; BP diastolic 60–81; PULSE 89–100; RESP 14–22; TEMP 97.1–98.7; O2SAT 90–99
[2024-11-19] MEDS: PCA WASTE DOCUMENTATION 1 MG ML MC SCH (02:47)
[2024-11-19 03:21] LABS: MEAN PLATELET VOLUME 9.5 FL (7.4-10.4); RED CELL DISTRIBUTION WIDTH 15.9 % (11.5-14.5)
[2024-11-19 03:30] LABS: CHOL/HDL RATIO 3.8 (0.00-4.99); CREATININE 0.91 MG/DL (0.60-1.10); LDL CHOLESTEROL 42 MG/DL (50-100); PHOSPHORUS 2.0 MG/DL (2.3-4.5); TOTAL CARBON DIOXIDE 31.4 MMOL/L (24-32); eCRCL 87 ML/MIN; eGFR 86 ML/MIN
--- NOTE | 2024-11-19 09:46 | PROGRESS NOTE ---
Progress Note Dictate Providers to CC ~ Subjective Subjective: Still with decent O2 requirement but otherwise doing OK. Tolerating liquid diet. No fever. Objective Objective: AF past 24hrs now on 8L GENERAL: He is a pleasant middle-aged male sitting up in bed, looking stable. NECK: He has a right internal jugular central venous catheter in place. LUNGS: Clear to auscultation anteriorly. HEART: Regular rate and rhythm. ABDOMEN: Extensively bandaged. He has one ASYA drain in place. EXTREMITIES: He does not have significant edema. Lab Results: 11/19/24 0255 11/19/24 0255 Radiology comments: CXR with pulm vasc congestion Problem\Assessment\Plan Additional Plan 1. Perforated pyloric channel ulcer s/p exploratory laparotomy with repair. 2. Recent gallstone pancreatitis and cholecystitis s/p robotic cholecystectomy. 3. Large pericardial effusion, requiring drainage due to cardiac tamponade physiology - drain no longer present 4. Disseminated candidemia with positive blood culture, related to perforated ulcer. 5. Diabetes mellitus type 2 with a hemoglobin A1c of 8.5%. Continue micafungin 150mg IV daily Continue Zosyn DC vancomycin F/U blood cultures Follow PCT Follow with serial echo once pericardial drain removed (may have been contamination of pericardial space with original drain) DC central line Contact Dr. Carroll with questions over the weekend RENZO OSMAN MD Nov 19, 2024 09:46
--- NOTE | 2024-11-19 12:10 | PROGRESS NOTE- Residence ---
Progress Note - Resident Providers to CC Resident Creating Document: CHRISTINA DARDEN, GERMAINE CC: VALENTÍN HOLLOWAY MD ~ Antibiotic Timeout Antibiotic Ordered?: No Subjective Patient examined at bedside. Patient does not complain of chest pain, shortness of breaths. No hematoma or oozing or pain at the site of the drain that was removed. Objective Vital Signs Date Time Temp Pulse Resp B/P (MAP) Pulse Ox O2 Delivery O2 Flow Rate FiO2 11/19/24 11:18 98.1 100 17 142/77 (98) 97 Nasal Cannula 6.0 11/18/24 11:43 44 Result Diagram: 11/19/2425411/19/24254 General: Alert, awake, oriented, not in acute distress HEENT: PERRLA, no icterus, pallor, lymphadenopathy, carotid bruit Respiratory system: Bilateral vesicular breath sounds heard, no adventitious breath sounds CVS: S1-S2 heard, no murmurs/rubs/gallop, scars from the removal of pericardial drain present which are in healing stage GI: Linear surgical scar present in the center of the abdomen home Soft, nontender, no organomegaly, no guarding/rigidity, bowel sounds present Neuro: No focal neurological deficits present Extremities: Bilateral 1+ pitting edema present Skin: Warm and dry Assessment Assessment 59-year-old male with history of type 2 DM with A1c of 8.5, recent gallstone pancreatitis/cholecystitis s/p robotic cholecystectomy, CAD s/p stenting in June 2024, smoker, came as a transfer from [facility] for for abdominal pain on 11/14. CT abdomen revealed pneumoperitoneum with large pericardial effusion. He was taken to OR by Dr. Mcfarland on 11/14 and had undergone status post exploratory laparotomy with repair for perforated pyloric channel ulcer. Cardiology consulted in view of cardiac tamponade. Plan Plan S/p exploratory laparotomy with repair for perforated pyloric ulcer, done on 11/14 s/p cholecystectomy for gallstone pancreatitis on 11/04 Continue primary team management Disseminated candidemia Continue management as per ID and hospitalist team Cardiac tamponade S/p pericardiocentesis Pericardial drain removed on 11/17 CAD s/p coronary artery stenting in June 2024 Hyperlipidemia Continue DAPT with aspirin and Plavix continue atorvastatin 40 mg once daily Type 2 Diabetes mellitus with A1c of 8.5 Management as per hospitalist team Hypertension resume metoprolol succinate 25 mg once daily Code Status: Full code DVT prophylaxis: SCD Prognosis: Guarded Christina Darden MD Internal Medicine, PGY 2 Patient seen and examined by Dr. Maria Ines CHANEY Date of Service: Nov 19, 2024 Billing Provider: VALENTÍN HOLLOWAY MD, SIVA, RES Nov 19, 2024 12:10 VALENTÍN HOLLOWAY MD Nov 19, 2024 16:38
[2024-11-19] MEDS: piperacillin/tazo 4.5gm/100ml 100 ML IV SCH (16:14)
--- NOTE | 2024-11-19 16:45 | CARDIOLOGY REPORT ---
APPROVED REPORT EXAM: Limited 2D, Doppler, and color-flow Echocardiogram. Patient Location: [facility] Blood Pressure: 131/75 mmHg Heart Rate: 99 bpm Rhythm: NSR Indications Limited to evaluate for pericardial effusion Diabetes Stent x 2 in 05/2024 Pericardiocentesis with 1000 cc pericardial fluid removed 11/14/24 Administrative Supervisor is Akbar Magallanes MD ; BV. Marianna MD consult Previous echo 11/17/24 [facility] 55% EF ; mod-sev AI ; no significant pericardial effusion 2D Dimensions IVC 17.26 mm Aortic Valve AI P 1/2 Time 344 ms Tricuspid Valve TR P. Velocity 228 cm/s RAP ESTIMATE 10 mmHg TR Peak Gr. 21 mmHg RVSP 31 mmHg LEFT VENTRICLE LV appears normal in size and wall thickness. Overall systolic function appears normal. Overall LVEF is 55%. AORTIC VALVE Trileaflet AV appears sclerotic without gross stenosis. Moderate to severe insufficiency. MITRAL VALVE MV is thickened with mild annular calcification. Trace mitral regurgitation. TRICUSPID VALVE The tricuspid valve is normal in structure. Trace tricuspid regurgitation. PULMONIC VALVE The pulmonary valve is normal in structure. Trace to mild pulmonic regurgitation. GREAT VESSELS The IVC is normal in size and collapses >50% with inspiration. PERICARDIUM Trivial circumferential pericardial effusion with no evidence of hemodynamic compromise. Pleural effu obdulio. Other Information Study Quality: Adequate Conclusion LV appears normal in size and wall thickness. Overall systolic function appears normal. Trileaflet AV appears sclerotic without gross stenosis. Moderate to severe insufficiency. Trace mitral regurgitation. Trace tricuspid regurgitation. Trace to mild pulmonic regurgitation. Trivial circumferential pericardial effusion with no evidence of hemodynamic compromise. Overall LVEF is 55%.
--- NOTE | 2024-11-19 17:07 | PROGRESS NOTE- Residence ---
Progress Note - Resident Providers to CC Resident Creating Document: JORDAN NICHOLS RES CC: JULITA VAUGHN DO ~ Central Line/PICC still needed: No Trujillo-Non Protocol Trujillo Indications Met/Not Met: F/C Indications Met Antibiotic Timeout Antibiotic Ordered?: Yes If Yes, Indications: fungemia Subjective Patient examined at bedside. NAOE, O2 requirements came down, and right IJ CVC is out. no new complaints Objective Vital Signs Date Time Temp Pulse Resp B/P (MAP) Pulse Ox O2 Delivery O2 Flow Rate FiO2 11/19/24 15:00 15 11/19/24 14:53 97.8 92 136/76 (96) 94 Nasal Cannula 6.0 11/18/24 11:43 44 Result Diagram: 11/19/2425411/19/24254 General: Elderly male, AAO x4, not in apparent distress Head: Normocephalic with an atraumatic Eyes: Pupils- 3mm, reacting to light, conjunctiva- anicteric Nose and throat: No polyps, septum- normal, no mucosal ulcers Neck: Supple, no lymphadenopathy, no carotid bruit, right IJ CVC present Respiratory: No use of accessory muscles of respiration, decreased breath sounds in the bilateral basal area Cardiac: S1-S2 heard, rythm regular, no gallop/murmur, pericardial drain removed Abdomen: Midline incision with pablito present, ASYA drain present, non distended, no tenderness, no organomegaly, sluggish bowel sounds Extremities: Bilateral fingers clubbing, 1+ pedal edema Skin: warm and dry, no rash, no purpura Neuro: No focal deficit, gross cranial nerve exam- normal Assessment Assessment 59-year-old male with history of type 2 DM with A1c of 8.5, recent gallstone pancreatitis/cholecystitis s/p robotic cholecystectomy, CAD s/p stenting in June 2024, smoker, came as a transfer from [facility] for for abdominal pain on 11/14. CT abdomen revealed pneumoperitoneum with large pericardial effusion. He was taken to OR by Dr. Mcfarland on 11/14 and had undergone status post exploratory laparotomy with repair for perforated pyloric channel ulcer. Had undergone pericardiocentesis with placement of pericardial drain and drainage of 1 L of pericardial fluid on 11/14, procedure done by Dr. Cabral He remained in the ICU and was extubated on 11/16. He was transferred to the PCU on 11/17 Plan Plan S/p exploratory laparotomy with repair for perforated pyloric ulcer, done on 11/14 s/p cholecystectomy for gallstone pancreatitis on 11/04 -CT abdomen on 11/18- no leak -dc protonix gtt and changed to Protonix 40 mg IV b.i.d. -started on full liquid diet as per Dr. 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 Mallory, ID consulted and patient is currently on micafungin 150 mg once daily started on 11/15 -continue zosyn, and dced vanco on 11/19 as per ID recs -Tylenol p.r.n. for fever Large pericardial effusion S/p pericardiocentesis Patient underwent pericardiocentesis on 11/14/2024, by Dr. Cabral cardiology 1 L of fluid drained. Pericardial drain removed on 11/17 TSH is normal, unsure what is the reason for pericardial effusion Dr. Mallory recommended serial echo i/v/o disseminated candidemia, follow up repeat echo today showed trace pericardial effusion Bilateral pleural effusions Acute hypoxemic respiratory failure -DC IV fluids -continue IV Lasix 20 mg q.12 -continue oxygen via NC to maintain SpO2 94-98. o2 requirements came down to 8 from 15 CAD s/p coronary artery stenting in June 2024 Continue DAPT with aspirin and Plavix continue atorvastatin 40 mg once daily Type 2 Diabetes mellitus with A1c of 8.5 -continue Lantus 8 U and medium dose supplemental insulin -home glipizide on hold -Blood sugars are controlled Mild hypokalemia -k 3.3 -started on potassium replacement protocol Hypertension -resume metoprolol succinate 25 mg once daily -home lisinopril on hold Code Status: Full code Line/tube: ASYA Trujillo drain DVT prophylaxis: SCD Nutrition: full liquid diet PT: yes Prognosis: Guarded Disposition: Continue care in PCU, pt recommended rehab, Jordan Nichols MD IM PGY-3 resident Date of Service: Nov 19, 2024 Billing Provider: JULITA VAUGHN DO Common Visit Codes: [id number] INP/OBS CARE(HIGH) JORDAN NICHOLS, RES Nov 19, 2024 17:07 JULITA VAUGHN DO Nov 19, 2024 18:39
[2024-11-19] MEDS ORDERED: magnesium hydroxide 30ml (MOM) UD suspension PO PRN ×2 (17:25→18:20)
--- NOTE | 2024-11-19 22:02 | PROGRESS NOTE ---
Progress Note ID Providers to CC ~ Progress Note Progress Note: persistent pain/vss/abd-drain output noted/labs noted a/p 1. s/p repair perf ulcer-doing well/advance po RADHA HERNANDEZ MD Nov 19, 2024 22:02
[2024-11-20] VITALS (9 sets, daily range): BP systolic 107–145; BP diastolic 70–76; PULSE 83–100; RESP 12–19; TEMP 97.1–97.9; O2SAT 91–99
[2024-11-20] MEDS ORDERED: VANCOMYCIN LEVEL IV ONE (06:30)
[2024-11-20 06:50] LABS: MEAN PLATELET VOLUME 9.7 FL (7.4-10.4); RED CELL DISTRIBUTION WIDTH 15.7 % (11.5-14.5)
[2024-11-20 06:56] LABS: CREATININE 0.81 MG/DL (0.60-1.10); TOTAL CARBON DIOXIDE 33.0 MMOL/L (24-32); eCRCL 97 ML/MIN; eGFR > 90 ML/MIN
--- NOTE | 2024-11-20 10:34 | PROGRESS NOTE- Residence ---
Progress Note - Resident Providers to CC Resident Creating Document: JORDAN NICHOLS RES CC: SABRINA HULL MD ~ Central Line/PICC still needed: N\A Antibiotic Timeout Antibiotic Ordered?: Yes Subjective Patient examined at bedside. NAOE, O2 requirements came down to 3l/min. he had a large bm last night, and diet advanced to regular diet Objective Vital Signs Date Time Temp Pulse Resp B/P (MAP) Pulse Ox O2 Delivery O2 Flow Rate FiO2 11/20/24 08:25 89 134/70 (91) 11/20/24 08:00 15 97 Nasal Cannula 2.0 11/20/24 06:00 97.1 11/18/24 11:43 44 Result Diagram: 11/20/24 0555 11/20/24 0555 General: Elderly male, AAO x4, not in apparent distress Head: Normocephalic with an atraumatic Eyes: Pupils- 3mm, reacting to light, conjunctiva- anicteric Nose and throat: No polyps, septum- normal, no mucosal ulcers Neck: Supple, no lymphadenopathy, no carotid bruit, right IJ CVC present Respiratory: No use of accessory muscles of respiration, decreased breath sounds in the bilateral basal area Cardiac: S1-S2 heard, rythm regular, no gallop/murmur, pericardial drain removed Abdomen: Midline incision with pablito present, ASYA drain present, non distended, no tenderness, no organomegaly, bowel sounds- heard Extremities: Bilateral fingers clubbing, 1+ pedal edema- resolving Skin: warm and dry, no rash, no purpura Neuro: No focal deficit, gross cranial nerve exam- normal Assessment Assessment 59-year-old male with history of type 2 DM with A1c of 8.5, recent gallstone pancreatitis/cholecystitis s/p robotic cholecystectomy, CAD s/p stenting in June 2024, smoker, came as a transfer from [facility] for for abdominal pain on 11/14. CT abdomen revealed pneumoperitoneum with large pericardial effusion. He was taken to OR by Dr. Mcfarland on 11/14 and had undergone status post exploratory laparotomy with repair for perforated pyloric channel ulcer. Had undergone pericardiocentesis with placement of pericardial drain and drainage of 1 L of pericardial fluid on 11/14, procedure done by Dr. Cabral He remained in the ICU and was extubated on 11/16. He was transferred to the PCU on 11/17 Plan Plan S/p exploratory laparotomy with repair for perforated pyloric ulcer, done on 11/14 s/p cholecystectomy for gallstone pancreatitis on 11/04 -CT abdomen on 11/18- no leak -continue Protonix 40 mg IV b.i.d. -currently on regular diet as per Dr. 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 Mallory, ID consulted and patient is currently on micafungin 150 mg once daily started on 11/15 -continue zosyn, and dced vanco on 11/19 as per ID recs -Tylenol p.r.n. for fever Large pericardial effusion S/p pericardiocentesis Patient underwent pericardiocentesis on 11/14/2024, by Dr. Cabral cardiology 1 L of fluid drained. Pericardial drain removed on 11/17 TSH is normal, unsure what is the reason for pericardial effusion Dr. Mallory recommended serial echo i/v/o disseminated candidemia, follow up repeat echo on 11/20 showed trace pericardial effusion Bilateral pleural effusions Acute hypoxemic respiratory failure -DC IV fluids -continue IV Lasix 20 mg q.12 -continue oxygen via [place] to maintain SpO2 94-98. o2 requirements came down to 3 from 15 CAD s/p coronary artery stenting in June 2024 Continue DAPT with aspirin and Plavix continue atorvastatin 40 mg once daily Type 2 Diabetes mellitus with A1c of 8.5 -increased lantus to Lantus 12 U and medium dose supplemental insulin -home glipizide on hold Mild hypokalemia -k 3.3 -started on potassium replacement protocol Hypertension -resume metoprolol succinate 25 mg once daily -home lisinopril on hold Code Status: Full code Line/tube: PIV,ASYA drain, DC parnell today DVT prophylaxis: SCD Nutrition: regular diet PT: yes Prognosis: Guarded Disposition: Continue care in PCU, pt recommended rehab, Jordan Nichols MD IM PGY-3 resident Date of Service: Nov 20, 2024 Billing Provider: SABRINA HULL MD, HARIVARSHA, RES Nov 20, 2024 10:34
--- NOTE | 2024-11-20 14:16 | PROGRESS NOTE ---
Progress Note Cardiology Providers to CC ~ Subjective Subjective Patient seen and examined this afternoon. Overall he is doing well. Encourage incentive spirometry and working with physical therapy Objective Result Diagram: 11/20/2455 11/20/2455 Objective General: Normal body habitus, no acute distress, HEENT: Sclerae clear, PERRL, gums without lesions or bleeding, oropharynx clear without erythema or exudate. Neck: Supple without enlargement of the thyroid, or lymphadenopathy, Chest: Normal size and shape, no tenderness, nonlabored breathing, Breath sounds diminished but improved Heart: Regular in rate and rhythm, S1 and S2 normal, no S3-S4 or murmurs. Abdomen: Soft, nontender, no organomegaly, bowel sounds present. Extremities: No edema cyanosis or clubbing. Problem\Assessment\Plan Additional Plan 1. S/p exploratory laparotomy with repair for perforated pyloric ulcer, done on 11/14 s/p cholecystectomy for gallstone pancreatitis on 11/04 Continue primary team management 2. Disseminated candidemia: Patient on antifungal agents. Continue management as per ID and hospitalist team 3. Cardiac tamponade S/p pericardiocentesis Pericardial drain removed on 11/17 4. CAD s/p coronary artery stenting in June 2024 Hyperlipidemia Continue DAPT with aspirin and Plavix continue atorvastatin 40 mg once daily 4. Type 2 Diabetes mellitus with A1c of 8.5 Management as per hospitalist team 6. Hypertension resume metoprolol succinate 25 mg once daily 7. COPD with continued smoking. Counseled on smoking cessation. VALENTÍN HOLLOWAY MD Nov 20, 2024 14:16
--- NOTE | 2024-11-20 16:47 | PROGRESS NOTE ---
Progress Note Dictate Providers to CC CC: DARCI TIPTON MD ~ Progress Note: Subsequent surgical care on a 59-year-old gentleman who is postoperative day 6 status post repair of perforated pyloric ulcer Covering for Dr. Cruzito Mcfarland over the weekend Patient tolerating a full liquid diet Incision clean, dry, and intact Serous fluid from the ASYA drain Diet as tolerated DC [employer] Percocet for pain I would continue PPI for another three weeks and antibiotics for another 9 days Antibiotic Ordered?: Yes Objective Vitals Vital Signs Date Time Temp Pulse Resp B/P (MAP) Pulse Ox O2 Delivery O2 Flow Rate FiO2 11/20/24 15:00 12 11/20/24 11:00 97.5 86 107/71 (83) 96 Nasal Cannula 2.0 11/18/24 11:43 44 Lab Results: 11/20/24 0555 11/20/24 0555 DARCI TIPTON MD Nov 20, 2024 16:47
[2024-11-20] MEDS: INSULIN LISPRO 100 UNIT/ML INSULN.PEN MULTI-DOSE SQ SCH (17:34)
[2024-11-20] MEDS: insulin glargine (Lantus) pen - multi-dose SQ SCH (21:13)
[2024-11-20] MEDS: oxyCODONE/APAP 5-325mg tablet PO PRN (23:04)
[2024-11-21] VITALS (8 sets, daily range): BP systolic 100–133; BP diastolic 55–72; PULSE 84–102; RESP 14–20; TEMP 96.9–97.7; O2SAT 93–97
[2024-11-21] MEDS: piperacillin/tazo 4.5gm/100ml 100 ML IV ONE (00:06)
[2024-11-21 06:52] LABS: MEAN PLATELET VOLUME 9.6 FL (7.4-10.4); RED CELL DISTRIBUTION WIDTH 15.8 % (11.5-14.5)
[2024-11-21 07:24] LABS: CREATININE 0.98 MG/DL (0.60-1.10); TOTAL CARBON DIOXIDE 32.9 MMOL/L (24-32); eCRCL 80 ML/MIN; eGFR 79 ML/MIN
--- NOTE | 2024-11-21 08:43 | PROGRESS NOTE ---
Progress Note Cardiology Providers to CC ~ Subjective Subjective Patient seen and examined this morning. He is slowly continues to improve. No chest pain or shortness of breath. Objective Result Diagram: 11/21/2460611/21/24606 Objective General: Conscious alert oriented Neck: Supple without enlargement of the thyroid, or lymphadenopathy, Chest: Normal size and shape, no tenderness, nonlabored breathing, Breath sounds diminished but improved. Heart: Regular in rate and rhythm, S1 and S2 normal, no S3-S4 or murmurs. Abdomen: Surgical incisions present, bowel sounds present, mild tenderness present near incision.. Extremities: No edema cyanosis or clubbing. Problem\Assessment\Plan Additional Plan 1. S/p exploratory laparotomy with repair for perforated pyloric ulcer, done on 11/14 s/p cholecystectomy for gallstone pancreatitis on 11/04 Continue primary team management 2. Blood culture positive for fungus:: Patient on antifungal agents. Clinically improving. Continue management as per ID and hospitalist team 3. Cardiac tamponade S/p pericardiocentesis Pericardial drain removed on 11/17 , follow up echo shows no evidence of pericardial effusion 4. CAD s/p coronary artery stenting in June 2024 Hyperlipidemia Continue DAPT with aspirin and Plavix continue atorvastatin 40 mg once daily 4. Type 2 Diabetes mellitus with A1c of 8.5 Management as per hospitalist team. 5. [id number] aortic regurgitation: Continue to monitor. 6. Hypertension resume metoprolol succinate 25 mg once daily 7. COPD with continued smoking. Counseled on smoking cessation VALENTÍN HOLLOWAY MD Nov 21, 2024 08:43
[2024-11-21] MEDS ORDERED: potassium Cl 40MEQ/1/2NS 520ml 520 ML IV PRN (11:15)
[2024-11-21] MEDS ORDERED: magnesium sulf-water 2g/50mL 50 ML IV PRN (11:15)
[2024-11-21] MEDS ORDERED: magnesium sulf-water 4G/100mL 100 ML IV PRN (11:15)
[2024-11-21] MEDS ORDERED: potassium Cl 20 mEq SR tablet PO PRN (11:15)
[2024-11-21] MEDS ORDERED: magnesium Cl slow-release 64mg tablet PO PRN (11:15)
[2024-11-21] MEDS: potassium Cl 20 mEq SR tablet PO PRN (11:29)
--- NOTE | 2024-11-21 11:29 | PROGRESS NOTE ---
Progress Note Dictate Providers to CC CC: DARCI TIPTON MD ~ Progress Note: Subsequent surgical care on a 59-year-old gentleman who is postoperative day 7 status post repair of perforated pyloric ulcer Covering for Dr. Cruzito Mcfarland over the weekend Patient tolerating a regular liquid diet Incision clean, dry, and intact Serous fluid from the ASYA drain Diet as tolerated DC surgical drain DC Trujillo catheter Continue PPI for eight weeks Consider another 10 days of antibiotics orally (amoxicillin and clarithromycin) Antibiotic Ordered?: Yes Objective Vitals Vital Signs Date Time Temp Pulse Resp B/P (MAP) Pulse Ox O2 Delivery O2 Flow Rate FiO2 11/21/24 11:04 12 11/21/24 06:30 86 93 11/21/24 06:00 96.9 112/67 (82) Nasal Cannula 1.0 11/20/24 20:00 44 Lab Results: 11/21/24 0607 11/21/24 0607 DARCI TIPTON MD Nov 21, 2024 11:29
[2024-11-21] MEDS: HYDROmorphone inj. 0.5 MG/0.5 ML DISP.SYRIN IV ONE (12:04)
--- NOTE | 2024-11-21 12:10 | PROGRESS NOTE- Residence ---
Progress Note - Resident Providers to CC Resident Creating Document: JORDAN NICHOLS RES CC: SABRINA HULL MD ~ Central Line/PICC still needed: N\A Antibiotic Timeout Antibiotic Ordered?: Yes Subjective Patient examined at bedside. NAOE, feeling well and said he decided to quit smoking, and he said he doesnt want to go rehab Objective Vital Signs Date Time Temp Pulse Resp B/P (MAP) Pulse Ox O2 Delivery O2 Flow Rate FiO2 11/21/24 11:04 12 11/21/24 06:30 86 93 11/21/24 06:00 96.9 112/67 (82) Nasal Cannula 1.0 11/20/24 20:00 44 Result Diagram: 11/21/2460611/21/24606 General: Elderly male, AAO x4, not in apparent distress Head: Normocephalic with an atraumatic Eyes: Pupils- 3mm, reacting to light, conjunctiva- anicteric Nose and throat: No polyps, septum- normal, no mucosal ulcers Neck: Supple, no lymphadenopathy, no carotid bruit, right IJ CVC present Respiratory: No use of accessory muscles of respiration, decreased breath sounds in the bilateral basal area Cardiac: S1-S2 heard, rythm regular, no gallop/murmur, pericardial drain removed Abdomen: Midline incision with pablito present, non distended, no tenderness, no organomegaly, bowel sounds- heard Extremities: Bilateral fingers clubbing, 1+ pedal edema- resolving Skin: warm and dry, no rash, no purpura Neuro: No focal deficit, gross cranial nerve exam- normal Counseling Services Smoking & Tobacco Cessation: > 10 Minutes (smoking cessation counseling is given to the patient and including lung cancer, bladder cancer increased risk of COPD and infections and the patient decided he will quit smoking) Assessment Assessment 59-year-old male with history of type 2 DM with A1c of 8.5, recent gallstone pancreatitis/cholecystitis s/p robotic cholecystectomy, CAD s/p stenting in June 2024, smoker, came as a transfer from [facility] for for abdominal pain on 11/14. CT abdomen revealed pneumoperitoneum with large pericardial effusion. He was taken to OR by Dr. Mcfarland on 11/14 and had undergone status post exploratory laparotomy with repair for perforated pyloric channel ulcer. Had undergone pericardiocentesis with placement of pericardial drain and drainage of 1 L of pericardial fluid on 11/14, procedure done by Dr. Cabral He remained in the ICU and was extubated on 11/16. He was transferred to the PCU on 11/17 Plan Plan S/p exploratory laparotomy with repair for perforated pyloric ulcer, done on 11/14 s/p cholecystectomy for gallstone pancreatitis on 11/04 -CT abdomen on 11/18- no leak -continue Protonix 40 mg IV b.i.d. -currently on regular diet as per Dr. Mcfarland's recommendations -pain management with po Percocet -Dr. Morton recommended Diet as tolerated DC surgical drain DC Trujillo catheter Continue PPI for eight weeks Consider another 10 days of antibiotics orally (amoxicillin and clarithromycin) Disseminated candidemia -cultures from 11/14 positive for Jane and pleural fluid and peritoneal fluid cultures positive for Jane -Repeat blood cultures from 11/16 are negative -WBC-12, and procalcitonin came down to 1.18 from 7 -Dr. Mallory, ID consulted and patient is currently on micafungin 150 mg once daily started on 11/15, and DCed on 11/21 -dced vanco on 11/19 as per ID recs, DC the Zosyn on 11/21 and started on p.o. amoxicillin and clarithromycin for 10 more days -Tylenol p.r.n. for fever Large pericardial effusion S/p pericardiocentesis Patient underwent pericardiocentesis on 11/14/2024, by Dr. Cabral cardiology 1 L of fluid drained. Pericardial drain removed on 11/17 TSH is normal, unsure what is the reason for pericardial effusion Dr. Mallory recommended serial echo i/v/o disseminated candidemia, follow up repeat echo on 11/20 showed trace pericardial effusion Bilateral pleural effusions Acute hypoxemic respiratory failure -DC IV fluids -continue IV Lasix 20 mg q.12 -continue oxygen via [place] to maintain SpO2 94-98. o2 requirements came down to 2 from 15 CAD s/p coronary artery stenting in June 2024 Continue DAPT with aspirin and Plavix continue atorvastatin 40 mg once daily Type 2 Diabetes mellitus with A1c of 8.5 -increased lantus to Lantus 12 U and medium dose supplemental insulin -home glipizide on hold Mild hypokalemia -k 3.3 -started on potassium replacement protocol Hypertension -resume metoprolol succinate 25 mg once daily -home lisinopril on hold Code Status: Full code Line/tube: PIV DVT prophylaxis: SCD Nutrition: regular diet PT: yes Prognosis: Guarded Disposition: Continue care in PCU, dc to rehab vs home health with PT in a day or two Jordan Nichols MD PGY-3 resident Date of Service: Nov 21, 2024 Billing Provider: SABRINA HULL MD, HARIVARSHA, RES Nov 21, 2024 12:10
[2024-11-21] MEDS: pantoprazole 40mg Tablet.DR PO SCH (19:05)
[2024-11-21] MEDS ORDERED: K and/or MAG REPLACEMENT MC SCH (20:00)
[2024-11-22 02:00] VITALS: BP 112/63; PULSE 95; RESP 13; TEMP 97.5; O2SAT 97
[2024-11-22 06:24] LABS: MEAN PLATELET VOLUME 9.4 FL (7.4-10.4); RED CELL DISTRIBUTION WIDTH 15.9 % (11.5-14.5)
[2024-11-22 07:00] VITALS: BP 120/68; PULSE 87; RESP 17; TEMP 97.1; O2SAT 96
[2024-11-22 07:43] LABS: CREATININE 0.92 MG/DL (0.60-1.10); TOTAL CARBON DIOXIDE 34.0 MMOL/L (24-32); eCRCL 86 ML/MIN; eGFR 85 ML/MIN
--- NOTE | 2024-11-22 09:25 | PROGRESS NOTE ---
Progress Note Cardiology Providers to CC ~ Subjective Subjective Patient seen and examined this morning. Objective Result Diagram: 11/22/24 0555 11/22/2455 Objective General: Normal body habitus, no acute distress, HEENT: Sclerae clear, PERRL, gums without lesions or bleeding, oropharynx clear without erythema or exudate. Neck: Supple without enlargement of the thyroid, or lymphadenopathy, Chest: Normal size and shape, no tenderness, nonlabored breathing, Breath sounds diminished but improved. Heart: Regular in rate and rhythm, S1 and S2 normal, no S3-S4 or murmurs. Abdomen: Surgical incision present. Mild tenderness., bowel sounds present. Extremities: No edema cyanosis or clubbing. Problem\Assessment\Plan Additional Plan 1. S/p exploratory laparotomy with repair for perforated pyloric ulcer, done on 11/14 s/p cholecystectomy for gallstone pancreatitis on 11/04 Continue primary team management 2. Blood culture positive for fungus:: Patient on antifungal agents. Abdominal bacterial infection on antibiotics. Clinically improving. Continue management as per ID and hospitalist team 3. Cardiac tamponade S/p pericardiocentesis Pericardial drain removed on 11/17 , follow up echo shows no evidence of pericardial effusion 4. CAD s/p coronary artery stenting in June 2024 Hyperlipidemia Continue DAPT with aspirin and Plavix continue atorvastatin 40 mg once daily 4. Type 2 Diabetes mellitus : Management as per hospitalist team. 5. [id number] aortic regurgitation: Continue to monitor. 6. Hypertension resume metoprolol succinate 25 mg once daily 7. COPD with continued smoking. Counseled on smoking cessation VALENTÍN HOLLOWAY MD Nov 22, 2024 09:25
[2024-11-22 10:00] VITALS: BP 114/71; PULSE 96; RESP 17; TEMP 98.1; O2SAT 96
--- NOTE | 2024-11-22 15:58 | PROGRESS NOTE- Residence ---
Progress Note - Resident Providers to CC Resident Creating Document: SIGRID CARUSO RES ~ Antibiotic Timeout Antibiotic Ordered?: Yes Subjective Patient examined at bedside. No new symptoms overnight patient continues to have mild pain near the surgery site. Objective Vital Signs Date Time Temp Pulse Resp B/P (MAP) Pulse Ox O2 Delivery O2 Flow Rate FiO2 11/22/24 13:29 22 11/22/24 10:00 98.1 96 114/71 (85) 96 Room Air 11/22/24 07:00 1.0 11/20/24 20:00 44 General: Elderly male, AAO x4, not in apparent distress Head: Normocephalic with an atraumatic Eyes: Pupils- 3mm, reacting to light, conjunctiva- anicteric Nose and throat: No polyps, septum- normal, no mucosal ulcers Neck: Supple, no lymphadenopathy, no carotid bruit, right IJ CVC present Respiratory: No use of accessory muscles of respiration, decreased breath sounds in the bilateral basal area Cardiac: S1-S2 heard, rythm regular, no gallop/murmur, pericardial drain removed Abdomen: Midline incision with pablito present, non distended, no tenderness, no organomegaly, bowel sounds- heard Extremities: Bilateral fingers clubbing, 1+ pedal edema- resolving Skin: warm and dry, no rash, no purpura Neuro: No focal deficit, gross cranial nerve exam- normal Result Diagram: 11/22/24 0511/22/24 05 Assessment Assessment 59-year-old male with history of type 2 DM with A1c of 8.5, recent gallstone pancreatitis/cholecystitis s/p robotic cholecystectomy, CAD s/p stenting in June 2024, smoker, came as a transfer from Loc[facility] for for abdominal pain on 11/14. CT abdomen revealed pneumoperitoneum with large pericardial effusion. He was taken to OR by Dr. Mcfarland on 11/14 and had undergone status post exploratory laparotomy with repair for perforated pyloric channel ulcer. Had undergone pericardiocentesis with placement of pericardial drain and drainage of 1 L of pericardial fluid on 11/14, procedure done by Dr. Cabral He remained in the ICU and was extubated on 11/16. He was transferred to the PCU on 11/17 Plan Plan S/p exploratory laparotomy with repair for perforated pyloric ulcer, done on 11/14 s/p cholecystectomy for gallstone pancreatitis on 11/04 -CT abdomen on 11/18- no leak -continue Protonix 40 mg IV b.i.d. -currently on regular diet as per Dr. Mcfarland's recommendations -pain management with po Percocet -Dr. Morton recommended Diet as tolerated DC surgical drain DC Trujillo catheter Continue PPI for eight weeks Consider another 10 days of antibiotics orally (amoxicillin and clarithromycin) Disseminated candidemia -cultures from 11/14 positive for Jane and pleural fluid and peritoneal fluid cultures positive for Jane -Repeat blood cultures from 11/16 are negative -WBC-12, and procalcitonin came down to 1.18 from 7 -Dr. Mallory, ID consulted and patient is currently on micafungin 150 mg once daily started on 11/15, and DCed on 11/21 -dced vanco on 11/19 as per ID recs, DC the Zosyn on 11/21 and started on p.o. amoxicillin and clarithromycin for 10 more days -Tylenol p.r.n. for fever Large pericardial effusion S/p pericardiocentesis Patient underwent pericardiocentesis on 11/14/2024, by Dr. Cabral cardiology 1 L of fluid drained. Pericardial drain removed on 11/17 TSH is normal, unsure what is the reason for pericardial effusion Dr. Mallory recommended serial echo i/v/o disseminated candidemia, follow up repeat echo on 11/20 showed trace pericardial effusion Bilateral pleural effusions Acute hypoxemic respiratory failure -DC IV fluids -continue IV Lasix 20 mg q.12 -continue oxygen via [place] to maintain SpO2 94-98. o2 requirements came down to 2 from 15 Decrease furosemide from 20 mg b.i.d. to 20 mg o.d, patient did not have any signs of fluid overload and has mild hypokalemia CAD s/p coronary artery stenting in June 2024 Continue DAPT with aspirin and Plavix continue atorvastatin 40 mg once daily Type 2 Diabetes mellitus with A1c of 8.5 -increased lantus to Lantus 12 U and medium dose supplemental insulin -home glipizide on hold Change patient's diet from regular diet to carb controlled diet today Mild hypokalemia -k 3.2 -patient continues to be on potassium replacement protocol Hypertension -resume metoprolol succinate 25 mg once daily -home lisinopril on hold Code Status: Full code Line/tube: PIV DVT prophylaxis: SCD Nutrition: regular diet PT: yes Prognosis: Guarded Disposition: Will most likely be discharged tomorrow Sigrid Caruso MD IM PGY-1 resident Date of Service: Nov 22, 2024 Billing Provider: SABRINA HULL MD,SIGRID, RES Nov 22, 2024 15:58
[2024-11-22 18:00] VITALS: BP 120/69; PULSE 100; RESP 16; TEMP 97.9; O2SAT 92
[2024-11-22 20:00] VITALS: RESP 16; O2SAT 92
[2024-11-22 22:00] VITALS: BP 116/67; PULSE 95; RESP 15; TEMP 98.2; O2SAT 93
--- NOTE | 2024-11-22 23:03 | PROGRESS NOTE ---
Progress Note Dictate Providers to CC CC: DARCI TIPTON MD ~ Progress Note: Subsequent surgical care on a 59-year-old gentleman who is postoperative day 8 status post repair of perforated pyloric ulcer Covering for Dr. Cruzito Mcfarland over the weekend Patient tolerating a regular liquid diet Incision clean, dry, and intact Diet as tolerated Continue PPI for eight weeks 10 days of antibiotics orally (amoxicillin and clarithromycin) f/u with Dr. Mcfarland 1 week for staple removal Antibiotic Ordered?: Yes Objective Vitals Vital Signs Date Time Temp Pulse Resp B/P (MAP) Pulse Ox O2 Delivery O2 Flow Rate FiO2 11/22/24 22:00 98.2 95 15 116/67 (83) 93 Room Air 11/22/24 17:07 0.0 11/20/24 20:00 44 Lab Results: 11/22/24 0555 11/22/24 0555 DARCI TIPTON MD Nov 22, 2024 23:03
[2024-11-23] VITALS (8 sets, daily range): BP systolic 110–132; BP diastolic 59–77; PULSE 90–118; RESP 15–20; TEMP 97.1–98.2; O2SAT 92–100
[2024-11-23 06:52] LABS: MEAN PLATELET VOLUME 9.1 FL (7.4-10.4); RED CELL DISTRIBUTION WIDTH 15.5 % (11.5-14.5)
[2024-11-23 07:57] LABS: CREATININE 0.82 MG/DL (0.60-1.10); TOTAL CARBON DIOXIDE 30.9 MMOL/L (24-32); eCRCL 96 ML/MIN; eGFR > 90 ML/MIN
--- NOTE | 2024-11-23 11:20 | PROGRESS NOTE ---
Progress Note Cardiology Providers to CC ~ Subjective Subjective Patient seen and examined this morning. Overall he is doing well. He is being evaluated for possible discharge tomorrow. Objective Result Diagram: 11/23/2460811/23/24608 Objective General: Normal body habitus, no acute distress, HEENT: Sclerae clear, PERRL, gums without lesions or bleeding, oropharynx clear without erythema or exudate. Neck: Supple without enlargement of the thyroid, or lymphadenopathy, Chest: Normal size and shape, no tenderness, nonlabored breathing, Breath sounds clear to auscultation. Heart: Regular in rate and rhythm, S1 and S2 normal, no S3-S4 or murmurs. Abdomen: Soft, nontender, no organomegaly, bowel sounds present. Extremities: No edema cyanosis or clubbing. Problem\Assessment\Plan Additional Plan 1. S/p exploratory laparotomy with repair for perforated pyloric ulcer, done on 11/14 s/p cholecystectomy for gallstone pancreatitis on 11/04 Patient has improved and being evaluated for possible discharge on 11/24/2024 2. Blood culture positive for fungus:: Patient on antifungal agents. Abdominal bacterial infection on antibiotics. Clinically improving. Noted Dr. Mallory input. Continue management as per ID and hospitalist team 3. Cardiac tamponade S/p pericardiocentesis Pericardial drain removed on 11/17 , follow up echo shows no evidence of pericardial effusion 4. CAD s/p coronary artery stenting in June 2024 Hyperlipidemia Continue DAPT with aspirin and Plavix continue atorvastatin 40 mg once daily 4. Type 2 Diabetes mellitus : Management as per hospitalist team. 5. [id number] aortic regurgitation: Continue to monitor. 6. Hypertension resume metoprolol succinate 25 mg once daily 7. COPD with continued smoking. Counseled on smoking cessation VALENTÍN HOLLOWAY MD Nov 23, 2024 11:20
--- NOTE | 2024-11-23 12:01 | PROGRESS NOTE- Residence ---
Progress Note - Resident Providers to CC Resident Creating Document: ENMANUEL MOLINA CC: RENZO MALLORY MD ~ Antibiotic Timeout Antibiotic Ordered?: Yes Subjective Patient examined at bedside today. He reports to be feeling better. Reports mild pain around surgical scar. Otherwise denies fevers, chills, nausea, vomiting, diarrhea or any other subjective symptoms. Objective Vital Signs Date Time Temp Pulse Resp B/P (MAP) Pulse Ox O2 Delivery O2 Flow Rate FiO2 11/23/24 11:00 97.1 118 20 125/77 (93) 100 Room Air 11/22/24 17:07 0.0 11/20/24 20:00 44 Result Diagram: 11/23/2409 11/23/24 06 General: awake, alert oriented to place, time, and person HEENT: No pallor present, no icterus, moist mucous membranes Neck: No masses and tenderness Resp: Unlabored. Lungs clear to auscultation bilaterally. Chest: Normal expansion Cardiovascular: Regular Rate and rhythm, normal S1 and S2 without murmur, rub or gallop Abdomen: Soft and nontender, drain has been removed. Surgical scars healing well. No guarding or rigidity, bowel sounds present Neuro: No focal weakness in the upper and lower limb muscles, power of the muscles 5/5 bilateral upper and lower extremities, normal reflexes bilaterally. Cranial nerves intact Extremities: No cyanosis,clubbing or edema Skin: Warm and Dry. No lesions Psych: Normal affect. Cooperative with care Plan Plan Infectious disease progress note: Perforated pyloric channel ulcer s/p exploratory laparotomy with repair Recent gallstone pancreatitis and cholecystitis s/p robotic cholecystectomy Large pericardial effusion, requiring drainage due to cardiac tamponade physiology - drain no longer present Disseminated candidemia with positive blood culture, related to perforated ulcer Diabetes mellitus type 2 with a hemoglobin A1c of 8.5%. Blood cultures from 11/16 have remained negative Last echo from 11/19/24 with trivial pericardial effusion and moderate to severe aortic insufficiency Micafungin discontinued over the weekend. Re-start and continue 150mg IV daily Midline and IV micafungin for discharge ordered. Plan is to continue treatment until Saturday11/30/24 Okay to discharge patient from infectious disease standpoint Will also review pathology report from EGD and start H. Pylori treatment if indicated Plan discussed in detail with the patient and his . They are in agreement with management. Above plan discussed in detail with Dr. Mallory Disposition: Continue IV micafungin for another week. Patient is to continue treatment until Saturday before his trip Enmanuel Baird MD Internal Medicine Resident PGY-2 Date of Service: Nov 23, 2024 Billing Provider: RENZO MALLORY MD, LEONARDO LUIS Nov 23, 2024 12:01 RENZO MALLORY MD Nov 23, 2024 23:46
--- NOTE | 2024-11-23 12:36 | PROGRESS NOTE ---
Progress Note ID Providers to CC ~ Progress Note Progress Note: doing well/home in am RADHA HERNANDEZ MD Nov 23, 2024 12:36
[2024-11-23] MEDS: NUT.TX.GLUC.INTOLER,LAC-FR,SOY (GLUCERNA) 237 ML PO SCH (17:48)
--- NOTE | 2024-11-23 18:23 | PROGRESS NOTE- Residence ---
Progress Note - Resident Providers to CC Resident Creating Document: JORDAN NICHOLS RES CC: SABRINA HULL MD ~ Central Line/PICC still needed: N\A Antibiotic Timeout Antibiotic Ordered?: Yes Subjective Patient examined at bedside today. c/o abd pain, denies n/v., had a bm last night Objective Vital Signs Date Time Temp Pulse Resp B/P (MAP) Pulse Ox O2 Delivery O2 Flow Rate FiO2 11/23/24 15:35 Room Air 0.0 11/23/24 15:34 94 21 11/23/24 15:00 98.2 94 15 132/75 (94) Result Diagram: 11/23/24 0609 11/23/24 0609 General: Elderly male, AAO x4, not in apparent distress Head: Normocephalic with an atraumatic Eyes: Pupils- 3mm, reacting to light, conjunctiva- anicteric Nose and throat: No polyps, septum- normal, no mucosal ulcers Neck: Supple, no lymphadenopathy, no carotid bruit, right IJ CVC present Respiratory: No use of accessory muscles of respiration, decreased breath sounds in the bilateral basal area Cardiac: S1-S2 heard, rythm regular, no gallop/murmur, pericardial drain removed Abdomen: Midline incision with pablito present, non distended, no tenderness, no organomegaly, bowel sounds- heard Extremities: Bilateral fingers clubbing Skin: warm and dry, no rash, no purpura Neuro: No focal deficit, gross cranial nerve exam- normal Assessment Assessment 59-year-old male with history of type 2 DM with A1c of 8.5, recent gallstone pancreatitis/cholecystitis s/p robotic cholecystectomy, CAD s/p stenting in June 2024, smoker, came as a transfer from [facility] for for abdominal pain on 11/14. CT abdomen revealed pneumoperitoneum with large pericardial effusion. He was taken to OR by Dr. Mcfarland on 11/14 and had undergone status post exploratory laparotomy with repair for perforated pyloric channel ulcer. Had undergone pericardiocentesis with placement of pericardial drain and drainage of 1 L of pericardial fluid on 11/14, procedure done by Dr. Cabral He remained in the ICU and was extubated on 11/16. He was transferred to the PCU on 11/17 Plan Plan S/p exploratory laparotomy with repair for perforated pyloric ulcer, done on 11/14 s/p cholecystectomy for gallstone pancreatitis on 11/04 -CT abdomen on 11/18- no leak -continue Protonix 40 mg po b.i.d. -currently on regular diet as per Dr. Mcfarland's recommendations -pain management with po Percocet -Dr. Morton recommended Diet as tolerated DC surgical drain DC [place] catheter Continue PPI for eight weeks Consider another 10 days of antibiotics orally (amoxicillin and clarithromycin) Disseminated candidemia -cultures from 11/14 positive for Jane and pleural fluid and peritoneal fluid cultures positive for Jane -Repeat blood cultures from 11/16 are negative -WBC-12, and procalcitonin came down to 1.18 from 7 -Dr. Mallory, ID consulted and patient is currently on micafungin 150 mg once daily started on 11/15, and DCed on 11/[address] Morton -dced vanco on 11/19 as per ID recs, DC the Zosyn on 11/21 and started on p.o. amoxicillin and clarithromycin for 10 more days -restarted iv micafungin 150 mg once daily per ID recs, to be continued till 11/30 -Tylenol p.r.n. for fever Large pericardial effusion S/p pericardiocentesis Patient underwent pericardiocentesis on 11/14/2024, by Dr. Cabral cardiology 1 L of fluid drained. Pericardial drain removed on 11/17 TSH is normal, unsure what is the reason for pericardial effusion Dr. Mallory recommended serial echo i/v/o disseminated candidemia, follow up repeat echo on 11/20 showed trace pericardial effusion Bilateral pleural effusions Acute hypoxemic respiratory failure- resolved -currently satting well on room air -dc lasix CAD s/p coronary artery stenting in June 2024 Continue DAPT with aspirin and Plavix continue atorvastatin 40 mg once daily Type 2 Diabetes mellitus with A1c of 8.5 -increased lantus to Lantus 12 U and medium dose supplemental insulin -home glipizide on hold Mild hypokalemia- resolved Hypertension -resume metoprolol succinate 25 mg once daily -home lisinopril on hold Code Status: Full code Line/tube: PIV DVT prophylaxis: SCD Nutrition: regular diet PT: yes Prognosis: Guarded Disposition: Continue care in PCU, dc to home with opat arrangement Jordan Nichols MD IM PGY-3 resident Date of Service: Nov 23, 2024 Billing Provider: SABRINA HULL MD, HARIVARSHA, RES Nov 23, 2024 18:23
[2024-11-23] MEDS: magnesium hydroxide 30ml (MOM) UD suspension PO SCH (19:09)
[2024-11-23] MEDS ORDERED: magnesium hydroxide 30ml (MOM) UD suspension PO SCH (20:00)
[2024-11-24 02:00] VITALS: BP 112/65; PULSE 87; RESP 12; TEMP 97.1; O2SAT 99
[2024-11-24 06:00] VITALS: BP 111/77; PULSE 88; RESP 13; TEMP 97.8; O2SAT 96
[2024-11-24 07:02] LABS: MEAN PLATELET VOLUME 9.2 FL (7.4-10.4); RED CELL DISTRIBUTION WIDTH 15.7 % (11.5-14.5)
[2024-11-24 07:31] LABS: CREATININE 0.87 MG/DL (0.60-1.10); TOTAL CARBON DIOXIDE 30.5 MMOL/L (24-32); eCRCL 91 ML/MIN; eGFR 90 ML/MIN
[2024-11-24 08:00] VITALS: RESP 14; O2SAT 96
--- NOTE | 2024-11-24 09:26 | PROGRESS NOTE ---
Progress Note Cardiology Providers to CC ~ Subjective Subjective Patient seen and examined this morning before discharge. Overall he is doing well. No chest pain or shortness of breath. Objective Result Diagram: 11/24/24 0611/24/24607 Objective General: Normal body habitus, no acute distress, HEENT: Sclerae clear, PERRL, gums without lesions or bleeding, oropharynx clear without erythema or exudate. Neck: Supple without enlargement of the thyroid, or lymphadenopathy, Chest: Normal size and shape, no tenderness, nonlabored breathing, Breath sounds clear to auscultation. Heart: Regular in rate and rhythm, S1 and S2 normal, no S3-S4 or murmurs. Abdomen: Soft, nontender, no organomegaly, bowel sounds present. Extremities: No edema cyanosis or clubbing. Problem\Assessment\Plan Additional Plan 1. S/p exploratory laparotomy with repair for perforated pyloric ulcer, done on 11/14 s/p cholecystectomy for gallstone pancreatitis on 11/04 Patient has improved and is being discharged today 2. Blood culture positive for fungus:: Patient on antifungal agents. Abdominal bacterial infection on antibiotics. Clinically improving. Noted Dr. Mallory input. Continue Dr. Mac's recommendations. 3. Cardiac tamponade S/p pericardiocentesis Pericardial drain removed on 11/17 , follow up echo shows no evidence of pericardial effusion 4. CAD s/p coronary artery stenting in June 2024 Hyperlipidemia Continue DAPT with aspirin and Plavix continue atorvastatin 40 mg once daily 4. Type 2 Diabetes mellitus : Management as per hospitalist team. 5. [id number] aortic regurgitation: Continue to monitor. 6. Hypertension resume metoprolol succinate 25 mg once daily 7. COPD with continued smoking. Counseled on smoking cessation Coronary risk factor modification importance and smoking cessation and good control of diabetes blood pressure and cholesterol were emphasized to the patient. Patient to follow up with his PMD and his regional guide. VALENTÍN HOLLOWAY MD Nov 24, 2024 09:25
[2024-11-24 11:15] VITALS: RESP 15
[2024-11-24] MEDS: micafungin inj 150 MG in normal saline 100ml IV soln 100 ML IV SCH (11:17)
[2024-11-24] MEDS ORDERED: ATOR40TA PO (12:47)
[2024-11-24] MEDS ORDERED: DOCU100C40 PO (12:47)
[2024-11-24] MEDS ORDERED: PANT40TA54 PO (12:47)
[2024-11-24] MEDS ORDERED: METF-1203 PO (12:51)
[2024-11-24] MEDS ORDERED: OXYC-150 PO (13:21)
--- NOTE | 2024-11-24 14:53 | PROGRESS NOTE- Residence ---
Progress Note - Resident Providers to CC Resident Creating Document: ENMANUEL MOLINA CC: RENZO MALLORY MD ~ Antibiotic Timeout Antibiotic Ordered?: Yes Subjective Patient examined at bedside today. He reports to be feeling well. He is ready to go home. He has an appt to [facility] pick[facility] his antibiotics. Denies fevers, chills, nausea, vomiting, diarrhea or any other subjective symptoms. Objective Vital Signs Date Time Temp Pulse Resp B/P (MAP) Pulse Ox O2 Delivery O2 Flow Rate FiO2 11/24/24 11:15 15 11/24/24 06:00 97.8 88 111/77 (88) 96 Nasal Cannula 1.0 11/23/24 15:34 21 Result Diagram: 11/24/24 0608 11/24/24 06 General: awake, alert oriented to place, time, and person HEENT: No pallor present, no icterus, moist mucous membranes Neck: No masses and tenderness Resp: Unlabored. Lungs clear to auscultation bilaterally. Chest: Normal expansion Cardiovascular: Regular Rate and rhythm, normal S1 and S2 without murmur, rub or gallop Abdomen: Soft and nontender, drain has been removed. Surgical scars healing well. No guarding or rigidity, bowel sounds present Neuro: No focal weakness in the upper and lower limb muscles, power of the muscles 5/5 bilateral upper and lower extremities, normal reflexes bilaterally. Cranial nerves intact Extremities: MIdline in place. No cyanosis,clubbing or edema Skin: Warm and Dry. No lesions Psych: Normal affect. Cooperative with care Assessment Assessment 59-year-old male with history of type 2 DM with A1c of 8.5, recent gallstone pancreatitis/cholecystitis s/p robotic cholecystectomy, CAD s/p stenting in June 2024, smoker, came as a transfer from [facility] for abdominal pain on 11/14. CT abdomen revealed pneumoperitoneum with large pericardial effusion. He was taken to OR by Dr. Mcfarland on 11/14 and had undergone exploratory laparotomy with repair for perforated pyloric channel ulcer. Had undergone pericardiocentesis with placement of pericardial drain and drainage of 1 L of pericardial fluid on 11/14, procedure done by Dr. Cabral He remained in the ICU and was extubated on 11/16. He was transferred to the PCU on 11/17 Plan Plan Infectious disease progress note: Perforated pyloric channel ulcer s/p exploratory laparotomy with repair Recent gallstone pancreatitis and cholecystitis s/p robotic cholecystectomy Large pericardial effusion, requiring drainage due to cardiac tamponade physiology - drain no longer present Disseminated candidemia with positive blood culture, related to perforated ulcer Diabetes mellitus type 2 with a hemoglobin A1c of 8.5%. Blood cultures from 11/16 have remained negative Last echo from 11/19/24 with trivial pericardial effusion and moderate to severe aortic insufficiency Midline placed. Continue IV micafungin until Saturday11/30/24 Attempted to obtain pathology from gastric ulcer, none found Okay to discharge patient today from infectious disease standpoint Plan discussed in detail with the patient and his . They are in agreement with management. Above plan discussed in detail with Dr. Mallory Disposition: Continue IV micafungin for another week to complete 2 week course. Patient is to continue treatment until Saturday before his trip. He is being discharged today. Enmanuel Baird MD Internal Medicine Resident PGY-2 Date of Service: Nov 24, 2024 Billing Provider: RENZO MALLORY MD, LEONARDO LUIS Nov 24, 2024 14:53 RENZO MALLORY MD Nov 24, 2024 22:23
--- NOTE | 2024-11-24 15:12 | DISCHARGE SUMMARY-Residence ---
Discharge Summary Providers to CC Resident Creating Document: MARIO NICHOLS RES CC: SABRINA HULL MD ~ Discharge Summary Assessment 59-year-old male with history of type 2 DM with A1c of 8.5, recent gallstone pancreatitis/cholecystitis s/p robotic cholecystectomy, CAD s/p stenting in June 2024, smoker, came as a transfer from [facility] for for abdominal pain on 11/14. CT abdomen revealed pneumoperitoneum with large pericardial effusion. He was taken to OR by Dr. Mcfarland on 11/14 and had undergone status post e xploratory laparotomy with repair for perforated pyloric channel ulcer. Had undergone pericardiocentesis with placement of pericardial drain and drainage of 1 L of pericardial fluid on 11/14, procedure done by Dr. Cabral He remained in the ICU and was extubated on 11/16. He was transferred to the PCU on 11/17 Admission Diagnosis: acute abdomen Hospital Course DATE OF ADMISSION: 11/14/2024 DATE OF DISCHARGE: 11/24/2024 Discharge Diagnosis\Comment: S/p exploratory laparotomy with repair for perforated pyloric ulcer, done on 11/14 s/p cholecystectomy for gallstone pancreatitis on 11/04 Disseminated candidemia Large pericardial effusion S/p pericardiocentesis Bilateral pleural effusions Acute hypoxemic respiratory failure- resolved CAD s/p coronary artery stenting in June 2024 Type 2 Diabetes mellitus with A1c of 8.5 Mild hypokalemia- resolved Hypertension Operations\Procedures: S/p exploratory laparotomy with repair for perforated pyloric ulcer, done on 11/14 s/p cholecystectomy for gallstone pancreatitis on 11/04 pericardiocentesis on 11/14/2024 Pericardial drain removed on 11/17 Consultants: Dr. Mcfarland, Dr. Morton, surgeons Dr. Manuel, ICU Dr. Cabral, cardiology Dr. Mallory, ID Complications: None Condition on DC: Stable New Medications: Atorvastatin Calcium* (Lipitor*) 40 Mg Tablet 1 TAB PO DAILY for 30 Days, #30 TAB Metformin HCl (Metformin HCl) 500 Mg Tablet 2 TAB PO BIDWM for 30 Days, #60 TAB Oxycodone HCl/Acetaminophen (Percocet 10-325 mg Tablet) 10 Mg-325 Mg Tablet 1 TAB PO QID PRN PRN for pain, #20 TAB 0 Refills Docusate Sodium (Docusate Sodium) 100 Mg Caps 100 MG PO BID for 30 Days, #60 CAP Pantoprazole Sodium (Pantoprazole Sodium) 40 Mg Tablet.dr 40 MG PO BID for 45 Days, #90 TAB.SR Continued Medications: Aspirin (Ecotrin*) 81 Mg Tablet.dr 1 TAB PO DAILY, #30 TAB.SR Clopidogrel Bisulfate (Clopidogrel) 75 Mg Tablet 1 TAB PO DAILY Do not stop medication unless instructed by prescriber. Glipizide (Glipizide ER) 10 Mg Tab.er.24 1 TAB PO BID Lisinopril* (Zestril*) 5 Mg Tablet 1 TAB PO DAILY Metoprolol Succinate* (Toprol Xl*) 25 Mg Tab.sr.24h 1 TAB PO DAILY, #30 Nicotine 21 MG Patch* (Habitrol 21 MG Patch*) 1 Each Patch.td24 1 PATCH TOP DAILY for smoking cessation Discontinued Medications: Atorvastatin Calcium* (Lipitor*) 20 Mg Tablet 1 TAB PO DAILY Discharge Summary: 59-year-old male with history of type 2 DM with A1c of 8.5, recent gallstone pancreatitis/cholecystitis s/p robotic cholecystectomy, CAD s/p stenting in June 2024, smoker, came as a transfer from [facility] for for abdominal pain on 11/14. CT abdomen revealed pneumoperitoneum with large pericardial effusion. He was taken to OR by Dr. Mcfarland on 11/14 and had undergone status post exploratory laparotomy with repair for perforated pyloric channel ulcer. Had undergone pericardiocentesis with placement of pericardial drain and drainage of 1 L of pericardial fluid on 11/14, procedure done by Dr. Cabral, pericardial drain was removed and repeat echocardiogram showed trace pericardial effusion He remained in the ICU and was extubated on 11/16. He was transferred to the PCU on 11/17 Patient received IV PPIs which was then changed to p.o. Protonix. Was also having disseminated candidemia for which he received IV micafungin which he will be receiving even at the time of discharge for another one more week, recs from ID After getting back from the surgery we resumed his antiplatelets the Plavix and 2-3 days later aspirin was also resumed and continue the atorvastatin. Patient was diagnosed with type 2 diabetes mellitus with A1c of 8.5 when he received Lantus and medium dose supplemental insulin Pain was well controlled. He had no complications during the hospital stay. And he had usual recovery of bowel function with bowel movements, and worked with physical therapy. Patient is advised to quit smoking and he is thinking to quit smoking. Is hemodynamically stable at the time of discharge and his physical condition is as follows General: Elderly male, AAO x4, not in apparent distress Head: Normocephalic with an atraumatic Eyes: Pupils- 3mm, reacting to light, conjunctiva- anicteric Nose and throat: No polyps, septum- normal, no mucosal ulcers Neck: Supple, no lymphadenopathy, no carotid bruit, right IJ CVC present Respiratory: No use of accessory muscles of respiration, decreased breath sounds in the bilateral basal area Cardiac: S1-S2 heard, rythm regular, no gallop/murmur, pericardial drain removed Abdomen: Midline incision with pablito present, non distended, no tenderness, no organomegaly, bowel sounds- heard Extremities: Bilateral fingers clubbing Skin: warm and dry, no rash, no purpura Neuro: No focal deficit, gross cranial nerve exam- normal Labs at discharge CBC-H and H , WBC 14.8, platelets 544 CMP sodium 137, potassium 3.8, BUN 11, creatinine 0.7, Bilirubin 0.7, AST/ALT/ALP 28/19/116 A1c 8.5, TSH 0.62 Total cholesterol 75, triglycerides 97, LDL 42, HDL 20 2D echo on 11/14 Conclusion Overall LVEF is 60%. Normal LV size and wall thickness. Overall systolic function is normal. RV is normal size and function. Estimated PA systolic pressure is 35 mmHg. Left atrium appears to be mildly dilated. The right atrium size is normal. There appears to be mild to moderate RA collapse present. Trileaflet AV appears sclerotic without gross stenosis. Mild insufficiency. Aortic valve not fully evaluated due to limited exam. Mild Moderate MV annular thickening without gross stenosis. Trace regurgitation. TV appears structurally normal with trace regurgitation. Aortic root appears to be dilated and measures at 4.00 cm. Ascending aorta is not well visualized. Moderate to large pericardial effusion with signs of hemodynamic compromise. Very mild MV inflow respiratory variation is present. RA diastolic collapse is present. BP is measured at 153/[address] abdomen/pelvis on 11/14 IMPRESSION: 1. Moderate pneumoperitoneum and postsurgical change status post interval cholecystectomy and placement of abdominal drain. No evidence of abscess or other abnormal fluid collection. 2. Progressive large pericardial effusion. 3. Multifocal bibasilar pulmonary infiltrate with consolidative features. 4. Diverticulosis coli without CT evidence of acute diverticulitis. Critical Result: Pneumoperitoneum and large pericardial effusion Chest CT on 11/15 IMPRESSION: 1. Compared to previous exam there has been evacuation of pericardial effusion. 2. There are now small bilateral pleural effusions, right slightly greater than left with mild compressive atelectasis of the lower lobes. 3. Free air is still seen in the upper abdomen there is no a drainage catheter present. Abdomen/pelvic CT on 11/18 IMPRESSION: 1. Pneumoperitoneum, decreased compared to the prior exam. No extraluminal contrast visualized to suggest bowel perforation, although correlation with clinical findings is needed. 2. Significant interval decrease in size in the previously seen pericardial effusion with drainage catheter in place. 3. Cirrhotic liver morphology. Small amount of free fluid adjacent to the liver and in the pelvis. 4. Moderate anasarca. 5. Small to moderate bilateral pleural effusions with overlying atelectasis and consolidation and additional ground-glass and ill-defined airspace opacities 6. Additional findings as described above. Echocardiogram on 11/19 Conclusion LV appears normal in size and wall thickness. Overall systolic function appears normal. Trileaflet AV appears sclerotic without gross stenosis. Moderate to severe insufficiency. Trace mitral regurgitation. Trace tricuspid regurgitation. Trace to mild pulmonic regurgitation. Trivial circumferential pericardial effusion with no evidence of hemodynamic compromise. Overall LVEF is 55%. His discharge medications can be found above, he is sent home with the following recommendations Please follow up with your PCP at [facility] in a week Please follow up with Dr. Mcfarland for pablito removal in a week Follow up with your repatcher and continue all the medications prescribed. We prescribed you Protonix 40 mg twice daily for six weeks Go slow on your diet, and avoid bending and lifting heavy weights objects Prescribed you metformin along with glipizide for uncontrolled diabetes . Please discuss with your PCP regarding diabetes management and to recheck your A1c and adjust medications Take carb controlled diet Need to get the IV antibiotics and midline care for one more week And recommended to stop smoking and avoid alcohol intake Return to the ER in case of any recurrence of symptoms YOU NEED TO BE AT [facility] AT 4:30 PM TODAY. THEIR ADDRESS IS [address]. [phone]. *Problems/Diagnosis: (1) Perforated peptic ulcer Total Time Spent on D/C: > 30 Minutes Counseling Services Smoking & Tobacco Cessation: > 10 Minutes (Patient is recommended to quit smoking and explained to him the side effects like lung cancer, encouraged wrinkling, MRSA infection, delayed in wound healing and he is motivated to quit smoking) Date of Service: Nov 24, 2024 Billing Provider: SABRINA HULL MD, HARIVARSHA, RES Nov 24, 2024 14:49
== END 2024-11-24 16:00 | disposition home or self-care (01) | DRG 853 ==
LOC: ER 00:57 → ED HOLD 04:45 → CICU 2S 17:00 → PCU 3S 11-17 14:39
PROVIDERS: ADMIT Internal Medicine Pulmonary Disease; ATTEND Family Medicine
PROC: 0W9D3ZZ Drainage of Pericardial Cavity, Percutaneous Approach (ICD-10-PCS; 2024-11-14)
PROC: BW211ZZ Computerized Tomography (CT Scan) of Abdomen and Pelvis using Low Osmolar Contrast (ICD-10-PCS; 2024-11-14)
PROC: 5A1935Z Respiratory Ventilation, Less than 24 Consecutive Hours (ICD-10-PCS; 2024-11-14)
PROC: 03HY32Z Insertion of Monitoring Device into Upper Artery, Percutaneous Approach (ICD-10-PCS; 2024-11-14)
PROC: 0DQ70ZZ Repair Stomach, Pylorus, Open Approach (ICD-10-PCS; principal; 2024-11-14 14:10)
PROC: BW241ZZ Computerized Tomography (CT Scan) of Chest and Abdomen using Low Osmolar Contrast (ICD-10-PCS; 2024-11-15)
PROC: 05HA33Z Insertion of Infusion Device into Left Brachial Vein, Percutaneous Approach (ICD-10-PCS; 2024-11-24)
DX: B37.7 Candidal sepsis (principal); J96.01 Acute respiratory failure with hypoxia; K25.5 Chronic or unspecified gastric ulcer with perforation; I31.39 Other pericardial effusion (noninflammatory); I31.4 Cardiac tamponade; I25.10 Atherosclerotic heart disease of native coronary artery without angina pectoris; E11.9 Type 2 diabetes mellitus without complications; I10 Essential (primary) hypertension; E87.6 Hypokalemia; E78.5 Hyperlipidemia, unspecified; J44.9 Chronic obstructive pulmonary disease, unspecified; F17.210 Nicotine dependence, cigarettes, uncomplicated; E66.9 Obesity, unspecified; I35.1 Nonrheumatic aortic (valve) insufficiency; G47.33 Obstructive sleep apnea (adult) (pediatric); Z68.30 Body mass index [BMI] 30.0-30.9, adult; I25.2 Old myocardial infarction; Z95.5 Presence of coronary angioplasty implant and graft; Z90.49 Acquired absence of other specified parts of digestive tract; Z79.02 Long term (current) use of antithrombotics/antiplatelets; Z79.82 Long term (current) use of aspirin; Z82.49 Family history of ischemic heart disease and other diseases of the circulatory system; Z86.73 Personal history of transient ischemic attack (TIA), and cerebral infarction without residual deficits
CPT/HCPCS: 33016; 93308; 99291; Z7506; Z7508; 36410; 36415; 36600; 71045; 71260; 74176; 74177; 76937; 80048; 80053; 80061; 80076; 80202; 81001; 82803; 82945; 82948; 83036; 83605; 83735; 84100; 84132; 84145; 84443; 84484; 85018; 85025; 85651; 87040; 87070; 87077; 87081; 93005; 94002; 94003; 94760; 97110; 97116; 97161; 97530; 99152; 99153; A4615; A4618; A6213; A6250; A6253; A6258; A6402; A6407; A6446; A6449; A7000; C1729; C1751; C1758; G0378; J0131; J0330; J0694; J1100; J1171; J1815; J1885; J1938; J2003; J2060; J2248; J2250; J2405; J2470; J2543; J2704; J3010; J3370; J3372; J3490; J7030; J7040; J7050; J7120; Q9963; Q9967